=== PATIENT | female | born 1955 | race Caucasian/White ===

== ENCOUNTER 2017-02-13 09:00 | Emergency (ER) | payer MEDICARE, OTHER ==
[2017-02-13] MEDS ORDERED: IPRATROPIUM/ALBUTEROL 0.5-2.5 MG/3 ML AMPUL NEB ONE (09:14)
[2017-02-13] MEDS ORDERED: ALBUTEROL SULFATE 0.083% NEB 2.5 MG/3 ML AMPUL NEB SCH (09:30)
[2017-02-13 09:50] LABS: ABSOLUTE EOSINOPHILS # (AUTO) 0.1 10^3/uL (0.0-0.6); ABSOLUTE LYMPHOCYTES (AUTO) 1.1 10^3/uL (0.5-4.7); ABSOLUTE MONOCYTES (AUTO) 0.6 10^3/uL (0.1-1.4); ABSOLUTE NEUT (AUTO) 3.6 10^3/uL (1.7-8.2); BASOPHILS % (AUTO) 0.4 % (0-2); EOSINOPHILS % (AUTO) 2.6 % (0-6); HEMATOCRIT 36.9 % (36.0-47.0); HEMOGLOBIN 12.1 g/dL (12.0-15.5); HGB HCT DIFFERENCE -0.6; LYMPHOCYTES % (AUTO) 19.9 % (13-45); MEAN CORPUSCULAR HEMOGLOBIN 29.7 pg (27.0-33.4); MEAN CORPUSCULAR HGB CONC 32.7 g/dL (32.0-36.0); MEAN CORPUSCULAR VOLUME 91 fl (80-97); MONOCYTES % (AUTO) 11.3 % (3-13); RED BLOOD COUNT 4.06 10^6/uL (3.72-5.28); RED CELL DISTRIBUTION WIDTH 13.2 % (11.5-14.0); SEGMENTED NEUTROPHILS % (AUTO) 65.8 % (42-78); WHITE BLOOD COUNT 5.5 10^3/uL (4.0-10.5)
[2017-02-13 10:15] LABS: ALANINE AMINOTRANSFERASE 38 U/L (9-52); ALBUMIN 3.5 g/dL (3.5-5.0); ALKALINE PHOSPHATASE 94 U/L (38-126); ANION GAP 6 (5-19); ASPARTATE AMINO TRANSFERASE 27 U/L (14-36); BILIRUBIN,DIRECT 0.4 mg/dL (0.0-0.4); BILIRUBIN,TOTAL 0.5 mg/dL (0.2-1.3); BLOOD UREA NITROGEN 16 mg/dL (7-20); CARBON DIOXIDE 39 mmol/L (22-30); CHLORIDE 95 mmol/L (98-107); CREATININE RESULT 0.43 mg/dL (0.52-1.25); GLUCOSE 93 mg/dL (75-110); POTASSIUM 4.3 mmol/L (3.6-5.0); SODIUM 140.4 mmol/L (137-145); TOTAL PROTEIN 6.8 g/dL (6.3-8.2)
--- NOTE | 2017-02-13 10:20 | ER Document Report ---
ED General - General Chief Complaint: Cough Stated Complaint: CONGESTION AND SHORTNESS OF BREATH Mode of Arrival: Ambulatory Information source: Patient Notes: 61 yr old female hx copd , on adviar albuterol 3 L nc at home at all times presents with complaints of sore throat. denies any fevers, denies any productivity to cough, denies any difficulty breathing. TRAVEL OUTSIDE OF THE [place] IN LAST 30 DAYS: No - HPI Onset: Other - 3 days Onset/Duration: Persistent Quality of pain: Achy Severity: Mild Pain Level: 1 Associated symptoms: Sore throat Exacerbated by: Denies Relieved by: Denies Similar symptoms previously: No Recently seen / treated by doctor: No - Related Data Allergies/Adverse Reactions: clindamycin [Clindamycin] Allergy (Severe, Verified 02/13/17 09:05) "Throat Swells Shut" Past Medical History - Social History Smoking Status: Former Smoker Cigarette use (# per day): No Chew tobacco use (# tins/day): No Smoking Education Provided: No Frequency of alcohol use: None Drug Abuse: None Family History: Reviewed & Not Pertinent Patient has suicidal ideation: No Patient has homicidal ideation: No - Past Medical History Cardiac Medical History: Reports: Hx Hypercholesterolemia, Hx Hypertension Pulmonary Medical History: Reports: Hx Asthma, Hx COPD Denies: Hx Tuberculosis Renal/ Medical History: Denies: Hx Peritoneal Dialysis Past Surgical History: Reports: Hx Appendectomy, Hx Hysterectomy - Immunizations Hx Diphtheria, Pertussis, Tetanus Vaccination: Yes Hx Pneumococcal Vaccination: 12/22/08 Review of Systems - Review of Systems Notes: REVIEW OF SYSTEMS: CONSTITUTIONAL : Denies fever, chills, or sweats. Denies recent illness. EENT: dmits to sore throat CARDIOVASCULAR: Denies chest pain. Denies palpitations or racing or irregular heart beat. Denies ankle edema. RESPIRATORY: Denies cough, cold, or chest congestion. Denies shortness of breath, difficulty breathing, or wheezing., on 3L nc GASTROINTESTINAL: Denies abdominal pain or distention. Denies nausea, vomiting , or diarrhea. Denies blood in vomitus, stools, or per rectum. Denies black, tarry stools. Denies constipation. GENITOURINARY: Denies difficulty urinating, painful urination, burning, frequency, blood in urine, or discharge. FEMALE GENITOURINARY: Denies vaginal bleeding, heavy or abnormal periods, irregular periods. Denies vaginal discharge or odor. MUSCULOSKELETAL: Denies back or neck pain or stiffness. Denies joint pain or swelling. SKIN: Denies rash, lesions or sores. HEMATOLOGIC : Denies easy bruising or bleeding. LYMPHATIC: Denies swollen, enlarged glands. NEUROLOGICAL: Denies confusion or altered mental status. Denies passing out or loss of consciousness. Denies dizziness or lightheadedness. Denies headache. Denies weakness or paralysis or loss of use of either side. Denies problems with gait or speech. Denies sensory loss, numbness, or tingling. Denies seizures. PSYCHIATRIC: Denies anxiety or stress. Denies depression, suicidal ideation, or homicidal ideation. ALL OTHER SYSTEMS REVIEWED AND NEGATIVE. Dictation was performed using [employer] voice recognition software PHYSICAL EXAMINATION: GENERAL: Well-appearing, well-nourished and in no acute distress. HEAD: Atraumatic, normocephalic. EYES: Pupils equal round and reactive to light, extraocular movements intact, conjunctiva are normal. ENT: Nares patent, oropharynx clear without exudates. Moist mucous membranes. NECK: Normal range of motion, supple without lymphadenopathy LUNGS: Breath sounds clear to auscultation bilaterally and equal. No wheezes rales or rhonchi. HEART: Regular rate and rhythm without murmurs ABDOMEN: Soft, nontender, nondistended abdomen. No guarding, no rebound. No masses appreciated. Female : deferred Musculoskeletal: Normal range of motion, no pitting or edema. No cyanosis. NEUROLOGICAL: Cranial nerves grossly intact. Normal speech, normal gait. Normal sensory, motor exams PSYCH: Normal mood, normal affect. SKIN: Warm, Dry, normal turgor, no rashes or lesions noted. Physical Exam - Vital signs Vitals: Temp Pulse Resp BP Pulse Ox 98.6 F 67 20 125/80 91 L 02/13/17 09:05 02/13/17 09:05 02/13/17 09:05 02/13/17 09:05 02/13/17 09:05 Course - Re-evaluation Re-evalutation: 02/13/17 10:47 pt has probably thrush related to her use of advair. strep pending , no respiratroy distress 02/13/17 11:48 strep was negative, will treat for esophagitis candidiasis After performing a Medical Screening Examination, I estimate there is LOW risk for ACUTE CORONARY SYNDROME, RESPIRATORY FAILURE, SEPSIS OR MENINGITIS, thus I consider the discharge disposition reasonable. I have reevaluated this patient multiple times and no significant life threatening changes are noted. The patient and I have discussed the diagnosis and risks, and we agree with discharging home with close follow-up. We also discussed returning to the Emergency Department immediately if new or worsening symptoms occur. We have discussed the symptoms which are most concerning (e.g., changing or worsening pain, trouble swallowing or breathing, neck stiffness, fever) that necessitate immediate return. - Vital Signs Vital signs: Temp Pulse Resp BP Pulse Ox 98.0 F 74 20 116/83 98 02/13/17 11:32 02/13/17 11:32 02/13/17 11:32 02/13/17 11:32 02/13/17 11:32 - Laboratory Result Diagrams: 02/13/17 09:35 02/13/17 09:35 Laboratory results interpreted by me: 02/13/17 02/13/17 09:35 09:35 Plt Count 146 L Chloride 95 L Carbon Dioxide 39 H Creatinine 0.43 L - Diagnostic Test Radiology reviewed: Image reviewed, Reports reviewed Discharge - Discharge Clinical Impression: Candidiasis of the esophagus, Sore throat Condition: Stable Disposition: HOME, SELF-CARE Instructions: Esophagitis ([facility]) Additional Instructions: Follow up with your physician tomorrow for further care or return to the ED IMMEDIATELY if symptoms worsen or new concerns occur. If you cannot afford to follow up with your primary care physician a list of low cost clinics have been provided at the end of your discharge papers as well. Prescriptions: Fluconazole [Diflucan] 100 mg PO DAILY #7 tablet
[2017-02-13 11:34] VITALS: BP 116/83
[2017-02-13] MEDS ORDERED: FLUCONAZOLE 100 MG TABLET PO ONE (11:50)
== END 2017-02-13 11:59 | disposition home or self-care (01) ==
LOC: ER 09:00
DX: B37.81 Candidal esophagitis (principal); J02.9 Acute pharyngitis, unspecified; J44.9 Chronic obstructive pulmonary disease, unspecified; Z79.51 Long term (current) use of inhaled steroids; Z79.899 Other long term (current) drug therapy; Z88.1 Allergy status to other antibiotic agents; Z87.891 Personal history of nicotine dependence; I10 Essential (primary) hypertension
CPT/HCPCS: 94640; 99284; 36415; 87070; 87880; 85025; 80053; 71020; A9270 ×3; J7620

== ENCOUNTER → 2017-09-08 | Outpatient (CLI) | payer MEDICARE, OTHER ==
--- NOTE | 2017-09-08 14:23 | RADIOLOGY REPORT (SQ) ---
EXAM DESCRIPTION: CT CHEST WITHOUT COMPLETED DATE/TIME: 09/08/2017 1:02 pm REASON FOR STUDY: EMPHYSEMA, UNSPECIFIED/SOLITARY PULMONARY NODULE J43.9 EMPHYSEMA, UNSPECIFIED COMPARISON: CT chest 09/07/2016, 04/07/2014, 03/11/2013, 12/15/2008 TECHNIQUE: CT scan performed of the chest without intravenous contrast. Images reviewed with lung, soft tissue and bone windows. Reconstructed coronal and sagittal MPR images reviewed. All images st ored on PACS. All CT scanners at this facility use dose modulation, iterative reconstruction, and/or weight based d osing when appropriate to reduce radiation dose to as low as reasonably achievable (ALARA). [facility]: Dose Right [facility]: CareDose [facility]: Dose Right [facility]: Teradose 4D [facility]: [employer] RADIATION DOSE: CT Rad equipment meets quality standard of care and radiation dose reduction techniq ues were employed. CTDIvol: 2.8 mGy. DLP: 118 mGy-cm. mGy. LIMITATIONS: No technical limitations. FINDINGS: LUNGS AND PLEURA: Obstructive lung disease is present. Calcified granulomas left upper lobe, unchanged compared to studies dating back to 2008. No acute infiltrates. No pleural effusion. No pneumothorax. HILAR AND MEDIASTINAL STRUCTURES: No identified masses or abnormal nodes. No obvious aneurysm. HEART AND VASCULAR STRUCTURES: No aneurysm. No pericardial effusion. UPPER ABDOMEN: No significant findings. Limited exam. THYROID AND OTHER SOFT TISSUES: 6 mm calcification, left lower pole thyroid unchanged. BONES: No significant finding. HARDWARE: None in the chest. OTHER: No other significant findings. IMPRESSION: Obstructive lung disease. Calcified granulomas left upper lobe unchanged from studies dating back to 2008. TECHNICAL DOCUMENTATION: JOB ID: [id number] Quality ID # [id number]: Final reports with documentation of one or more dose reduction techniques (e.g., Au tomated exposure control, adjustment of the mA and/or kV according to patient size, use of iterative reconstruction technique) 2010 [employer]- All Rights Reserved
== END ==
LOC: RAD 12:38
PROVIDERS: ATTEND Internal Medicine Pulmonary Disease
DX: J43.9 Emphysema, unspecified (principal); R91.1 Solitary pulmonary nodule
CPT/HCPCS: 71250

== ENCOUNTER 2018-03-17 03:20 | Emergency (ER) | payer MEDICARE, OTHER ==
--- NOTE | 2018-03-17 03:49 | ER Document Report ---
ED General - General Chief Complaint: Urinary Problem Stated Complaint: BLOOD IN URINE Time Seen by Provider: 03/17/18 03:44 Mode of Arrival: Ambulatory Information source: Patient, Relative, [facility] Records Notes: 62-year-old female with history of COPD on home O2 presents with complaint of hematuria, dysuria and increased urinary frequency that started 1 day prior to arrival. Patient denies abdominal pain, flank pain, history of kidney stones. She states she has been otherwise well and denies any recent, fever, chills, nausea, vomiting. She denies prior similar symptoms. TRAVEL OUTSIDE OF THE [place] IN LAST 30 DAYS: No - HPI Onset: Yesterday Onset/Duration: Sudden Quality of pain: No pain Associated symptoms: Shortness of breath - chronic. denies: Chest pain, Nausea , Vomiting Exacerbated by: Denies Relieved by: Denies Similar symptoms previously: No Recently seen / treated by doctor: No - Related Data Allergies/Adverse Reactions: clindamycin [Clindamycin] Allergy (Severe, Verified 02/13/17 09:05) "Throat Swells Shut" Past Medical History - General Information source: Patient, Relative, [facility] Records - Social History Smoking Status: Former Smoker Frequency of alcohol use: None Drug Abuse: None Lives with: Spouse/Significant other Family History: Reviewed & Not Pertinent Patient has suicidal ideation: No Patient has homicidal ideation: No - Past Medical History Cardiac Medical History: Reports: Hx Hypercholesterolemia, Hx Hypertension Pulmonary Medical History: Reports: Hx Asthma, Hx COPD Denies: Hx Tuberculosis Renal/ Medical History: Denies: Hx Peritoneal Dialysis Past Surgical History: Reports: Hx Appendectomy, Hx Hysterectomy - Immunizations Hx Diphtheria, Pertussis, Tetanus Vaccination: Yes Hx Pneumococcal Vaccination: 12/22/08 Review of Systems - Review of Systems Constitutional: denies: Fever, Weakness, Recent illness EENT: denies: Blurred vision Cardiovascular: denies: Chest pain, Dyspnea Respiratory: Cough, Short of breath - chronic Gastrointestinal: denies: Abdominal pain, Nausea, Vomiting Genitourinary: Dysuria, Frequency, Hematuria Female Genitourinary: No symptoms reported Musculoskeletal: No symptoms reported Skin: No symptoms reported Hematologic/Lymphatic: No symptoms reported Neurological/Psychological: No symptoms reported -: Yes All other systems reviewed and negative Physical Exam - Vital signs Vitals: Temp Pulse Resp BP Pulse Ox 98.2 F 95 20 148/85 H 93 03/17/18 03:27 03/17/18 03:27 03/17/18 03:27 03/17/18 03:27 03/17/18 03:27 Interpretation: Normal, Hypertensive. No: Febrile - Notes Notes: PHYSICAL EXAMINATION: GENERAL: Well-appearing, well-nourished and in no acute distress. HEAD: Atraumatic, normocephalic. EYES: Pupils equal round and reactive to light, extraocular movements intact, conjunctiva are normal. ENT: Nares patent, oropharynx clear without exudates. Moist mucous membranes. NECK: Normal range of motion, supple without lymphadenopathy LUNGS: On NC 3 L. Breath sounds diminished to auscultation bilaterally and equal. No wheezes rales or rhonchi. HEART: Regular rate and rhythm without murmurs ABDOMEN: Soft, nontender, nondistended abdomen. No guarding, no rebound. No masses appreciated. Female : deferred Musculoskeletal: Normal range of motion, no pitting or edema. No cyanosis. No CVA tenderness NEUROLOGICAL: Cranial nerves grossly intact. Normal speech, normal gait. Normal sensory, motor exams PSYCH: Normal mood, normal affect. SKIN: Warm, Dry, normal turgor, no rashes or lesions noted. Course - Re-evaluation Re-evalutation: Laboratory 03/17/18 04:08 Urine Color RED Urine Appearance CLOUDY Urine pH 7.0 Ur Specific [place] 1.015 Urine Protein 100 H Urine Glucose (UA) NEGATIVE Urine Ketones NEGATIVE Urine Blood LARGE H Urine Nitrite NEGATIVE Urine Bilirubin NEGATIVE Urine Urobilinogen NEGATIVE Ur Leukocyte Esterase MODERATE H Urine WBC (Auto) >182 Urine RBC (Auto) >182 Urine Ascorbic Acid NEGATIVE 03/17/18 08:15 62-year-old female with history of COPD on home O2 presents with complaint of hematuria, dysuria and increased urinary frequency that started 1 day prior to arrival. Patient denies abdominal pain, flank pain, history of kidney stones. She states she has been otherwise well and denies any recent, fever, chills, nausea, vomiting. She denies prior similar symptoms. VSS upon arrival. Patient is without increased O2 needs. Patient has non-surgical abdominal exam. she is without cva tenderness. Urine at the bedside is grossly bloody. UA consistent of significant UTI. Patient made away of results. Was provided her first dose of Cipro and pyridium in the department and was prescribed the same. Did discuss with patient that hematuria can be seen with UTIs but that she needs to follow up with pcp to asess for resolution. Advised her that peristent hematuria would need evaluation from urology. Patient and express understanding. They are comfortable with discharge. Advised to return if patient unable to tolerate abx, develops fever or has worsening pain. Low concern for pyelonephritis, or infected stone. 03/17/18 08:15 - Vital Signs Vital signs: Temp Pulse Resp BP Pulse Ox 97.6 F 93 18 138/89 H 93 03/17/18 05:14 03/17/18 05:14 03/17/18 05:14 03/17/18 05:14 03/17/18 05:14 - Laboratory Laboratory results interpreted by me: 03/17/18 04:08 Urine Protein 100 H Urine Blood LARGE H Ur Leukocyte Esterase MODERATE H Discharge - Discharge Clinical Impression: Hematuria due to acute cystitis UTI (urinary tract infection) Qualifiers: Urinary tract infection type: site unspecified Hematuria presence: with hematuria Qualified Code(s): N39.0 - Urinary tract infection, site not specified Condition: Good Disposition: [facility] Instructions: Urinary Tract Infection ([facility]) Additional Instructions: Please follow-up with your primary care physician in 5-7 days to repeat urinalysis. Please return to the emergency department if you are unable to tolerate your antibiotics. Prescriptions: Ciprofloxacin HCl [Cipro 500 mg Tablet] 500 mg PO BID #10 tablet Phenazopyridine HCl [Pyridium 200 mg Tablet] 200 mg PO TID #15 tablet Referrals: NORIS ARREDONDO MD [Primary Care Provider] - Follow up as needed
[2018-03-17 04:32] LABS: APPEARANCE,URINE CLOUDY; BILIRUBIN,URINE NEGATIVE (NEGATIVE); COLOR,URINE RED; GLUCOSE, URINE NEGATIVE (NEGATIVE); KETONES,URINE NEGATIVE (NEGATIVE); LEUKOCYTE ESTERASE,URINE MODERATE (NEGATIVE); NITRITE,URINE NEGATIVE (NEGATIVE); PROTEIN,URINE 100 mg/dL (NEGATIVE); URINE SPECIFIC GRAVITY 1.015; UROBILINOGEN,URINE NEGATIVE mg/dL (<2.0)
[2018-03-17] MEDS ORDERED: CIPROFLOXACIN HCL 500 MG TABLET PO ONE (04:54)
[2018-03-17] MEDS ORDERED: PHENAZOPYRIDINE HCL 200 MG TABLET PO ONE (04:58)
[2018-03-17 05:39] VITALS: BP 138/89
== END 2018-03-17 05:14 | disposition home health service (06) ==
LOC: ER 03:20
DX: N30.01 Acute cystitis with hematuria (principal); J44.9 Chronic obstructive pulmonary disease, unspecified; E78.00 Pure hypercholesterolemia, unspecified; I10 Essential (primary) hypertension; Z99.81 Dependence on supplemental oxygen; Z90.710 Acquired absence of both cervix and uterus
CPT/HCPCS: 99283; 81001; A9270 ×2; J3490

== ENCOUNTER 2018-04-02 12:21 | Emergency (ER) | payer MEDICARE, OTHER ==
[2018-04-02] MEDS ORDERED: METOCLOPRAMIDE HCL INJ/PF 10 MG/2 ML SDV IV ONE (13:02)
[2018-04-02] MEDS ORDERED: NORMAL SALINE 1000 ML 1,000 ML IV ONE (13:02)
--- NOTE | 2018-04-02 13:03 | ER Document Report ---
ED Medical Screen (RME) - General Chief Complaint: Nausea/Vomiting Stated Complaint: VOMITING Time Seen by Provider: 04/02/18 13:02 Mode of Arrival: Ambulatory Information source: Patient Notes: 62-year-old female history of COPD on oxygen presents with complaints of nausea vomiting since Tuesday I have greeted and performed a rapid initial assessment of this patient. A comprehensive ED assessment and evaluation of the patient, analysis of test results and completion of the medical decision making process will be conducted by additional ED providers. PHYSICAL EXAMINATION: GENERAL: Well-appearing, well-nourished and in no acute distress. Pt on O2 HEAD: Atraumatic, normocephalic. EYES: Pupils equal round extraocular movements intact, conjunctiva are normal. ENT: Nares patent NECK: Normal range of motion LUNGS: No respiratory distress Musculoskeletal: Normal range of motion NEUROLOGICAL: Normal speech, normal gait. PSYCH: Normal mood, normal affect. SKIN: Warm, Dry, normal turgor, no rashes or lesions noted. TRAVEL OUTSIDE OF THE [place] IN LAST 30 DAYS: No - Related Data Allergies/Adverse Reactions: clindamycin [Clindamycin] Allergy (Severe, Verified 02/13/17 09:05) "Throat Swells Shut" Past Medical History - Past Medical History Cardiac Medical History: Reports: Hx Hypercholesterolemia, Hx Hypertension Pulmonary Medical History: Reports: Hx Asthma, Hx COPD Denies: Hx Tuberculosis Renal/ Medical History: Denies: Hx Peritoneal Dialysis Past Surgical History: Reports: Hx Appendectomy, Hx Hysterectomy - Immunizations Hx Diphtheria, Pertussis, Tetanus Vaccination: Yes Physical Exam - Vital signs Vitals: Temp Pulse Resp BP Pulse Ox 98.5 F 90 22 H 146/88 H 92 04/02/18 12:04/02/18 12:04/02/18 12:04/02/18 12:04/02/18 12:27 Course - Vital Signs Vital signs: Temp Pulse Resp BP Pulse Ox 98.5 F 90 22 H 146/88 H 92 04/02/18 12:04/02/18 12:04/02/18 12:04/02/18 12:04/02/18 12:27 Doctor's Discharge - Discharge Referrals: NORIS ARREDONDO MD [Primary Care Provider] - Follow up as needed
[2018-04-02 13:54] LABS: ALANINE AMINOTRANSFERASE 35 U/L (9-52); ALBUMIN 4.6 g/dL (3.5-5.0); ALKALINE PHOSPHATASE 72 U/L (38-126); ASPARTATE AMINO TRANSFERASE 39 U/L (14-36); BILIRUBIN,DIRECT 0.3 mg/dL (0.0-0.4); BILIRUBIN,TOTAL 0.7 mg/dL (0.2-1.3); BLOOD UREA NITROGEN 20 mg/dL (7-20); CALCIUM 9.5 mg/dL (8.4-10.2); CHLORIDE 89 mmol/L (98-107); GLUCOSE 107 mg/dL (75-110); LIPASE 23.1 U/L (23-300); POTASSIUM 3.9 mmol/L (3.6-5.0); SODIUM 139.1 mmol/L (137-145); TOTAL PROTEIN 8.1 g/dL (6.3-8.2)
[2018-04-02 14:01] LABS: ANION GAP 7 (5-19)
[2018-04-02 14:04] LABS: CARBON DIOXIDE 43 mmol/L (22-30)
[2018-04-02 14:05] LABS: ABSOLUTE LYMPHOCYTES (AUTO) 0.3 10^3/uL (0.5-4.7); ABSOLUTE MONOCYTES (AUTO) 0.4 10^3/uL (0.1-1.4); ABSOLUTE NEUT (AUTO) 3.8 10^3/uL (1.7-8.2); BASOPHILS % (AUTO) 0.2 % (0-2); EOSINOPHILS % (AUTO) 0.2 % (0-6); HEMATOCRIT 41.7 % (36.0-47.0); MEAN CORPUSCULAR HEMOGLOBIN 30.2 pg (27.0-33.4); MEAN CORPUSCULAR HGB CONC 33.6 g/dL (32.0-36.0); MEAN CORPUSCULAR VOLUME 90 fl (80-97); MONOCYTES % (AUTO) 9.3 % (3-13); PLATELET COUNT 116 10^3/uL (150-450); RED BLOOD COUNT 4.64 10^6/uL (3.72-5.28); RED CELL DISTRIBUTION WIDTH 13.9 % (11.5-14.0); SEGMENTED NEUTROPHILS % (AUTO) 83.3 % (42-78); TOTAL CELLS COUNTED % (AUTO) 100 %; WHITE BLOOD COUNT 4.6 10^3/uL (4.0-10.5)
[2018-04-02] MEDS ORDERED: IPRATROPIUM/ALBUTEROL 0.5-2.5 MG/3 ML AMPUL NEB ONE (14:44)
--- NOTE | 2018-04-02 14:48 | ER Document Report ---
ED GI/ - General Chief Complaint: Nausea/Vomiting Stated Complaint: VOMITING Time Seen by Provider: 04/02/18 13:02 Mode of Arrival: Ambulatory Information source: Patient Notes: Patient presents with a 2 day history of nausea vomiting diarrhea. Patient complains of cramping with diarrhea that is at this time resolved. Patient states she is vomited over 5 times today and had diarrhea over 3 times. Patient denies any fever or urinary symptoms. TRAVEL OUTSIDE OF THE [place] IN LAST 30 DAYS: No - HPI Patient complains to provider of: Abdominal pain, Diarrhea, Vomiting Onset: Other - 2 days Timing/Duration: Persistent Quality of pain: Achy Pain Level: Denies Vaginal bleeding (Compared to normal period): None Associated symptoms: Diarrhea, Nausea, Vomiting, Other - Chronic cough due to COPD. denies: Chest pain, Dysuria, Fever, Urinary hesitancy, Urinary frequency , Urinary retention, Urinary urgency Exacerbated by: Denies Relieved by: Denies Similar symptoms previously: No Recently seen / treated by doctor: No - Related Data Allergies/Adverse Reactions: clindamycin [Clindamycin] Allergy (Severe, Verified 02/13/17 09:05) "Throat Swells Shut" Past Medical History - General Information source: Patient - Social History Smoking Status: Former Smoker Chew tobacco use (# tins/day): No Frequency of alcohol use: None Drug Abuse: None Occupation: None Lives with: Family Family History: Reviewed & Not Pertinent Patient has suicidal ideation: No Patient has homicidal ideation: No - Past Medical History Cardiac Medical History: Reports: Hx Hypercholesterolemia, Hx Hypertension Pulmonary Medical History: Reports: Hx Asthma, Hx COPD Denies: Hx Tuberculosis Renal/ Medical History: Denies: Hx Peritoneal Dialysis GI Medical History: Reports: Hx Gastroesophageal Reflux Disease Past Surgical History: Reports: Hx Appendectomy, Hx Hysterectomy - Immunizations Hx Diphtheria, Pertussis, Tetanus Vaccination: Yes Hx Pneumococcal Vaccination: 12/22/08 Review of Systems - Review of Systems Constitutional: No symptoms reported. denies: Fever EENT: No symptoms reported Cardiovascular: No symptoms reported. denies: Chest pain Respiratory: Cough Gastrointestinal: Abdominal pain, Diarrhea, Nausea, Vomiting. denies: Constipation, Poor appetite Genitourinary: No symptoms reported. denies: Dysuria Female Genitourinary: No symptoms reported Musculoskeletal: No symptoms reported. denies: Back pain Skin: No symptoms reported Hematologic/Lymphatic: No symptoms reported Neurological/Psychological: No symptoms reported Physical Exam - Vital signs Vitals: Temp Pulse Resp BP Pulse Ox 98.5 F 90 22 H 146/88 H 92 04/02/18 12:27 04/02/18 12:27 04/02/18 12:27 04/02/18 12:27 04/02/18 12:27 - General General appearance: Appears well, Alert In distress: None - HEENT Head: Normocephalic, Atraumatic Eyes: Normal Conjunctiva: Normal Nasal: Normal Mouth/Lips: Normal Mucous membranes: Dry Pharynx: Normal Neck: Normal - Respiratory Respiratory status: No respiratory distress Chest status: Nontender Breath sounds: Wheezing - Faint scattered, Other - Diminished breath sounds Chest palpation: Normal - Cardiovascular Rhythm: Regular Heart sounds: S1 appreciated, S2 appreciated Murmur: No - Abdominal Inspection: Normal Distension: No distension Bowel sounds: Normal Tenderness: Nontender Organomegaly: No organomegaly - Back Back: Normal, Nontender. No: CVA tenderness - Extremities General upper extremity: Normal inspection, Normal strength General lower extremity: Normal inspection, Normal strength - Neurological Neuro grossly intact: Yes Cognition: Normal Keller Coma Scale Eye Opening: Spontaneous Keller Coma Scale Verbal: Oriented Keller Coma Scale Motor: Obeys Commands Alisa Coma Scale Total: 15 - Psychological Associated symptoms: Normal affect, Normal mood - Skin Skin Temperature: Warm Skin Moisture: Dry Skin Color: Normal Course - Re-evaluation Re-evalutation: 04/02/18 14:46 Patient has a history of COPD and typically uses her nebulizer treatments at home at least 3 times a day. Patient is requesting a nebulizer treatment at this time. Patient states that her respiratory symptoms are typical of her chronic COPD. Patient denies any recent cough or cold symptoms. Reviewed patient's chemistry panel. Patient CO2 is typical of where she has run on previous ER visits. Review of patient's previous charts demonstrates that her doctor had spoke with her about the possibility of needing a lung transplant but she decided not to pursue this method of care. Patient without any increased respiratory effort, no use of accessory muscles 04/02/18 16:18 Patient reports that her nausea has started to return and requests additional medicine. 04/02/18 18:30 Patient feeling better, no vomiting at this time. Abdomen continues soft, nontender. Patient worsening signs or symptoms that she should return immediately for. Patient verbalized understanding and agrees with plan of care. - Vital Signs Vital signs: Temp Pulse Resp BP Pulse Ox 99.7 F 86 16 134/82 H 99 04/02/18 18:46 04/02/18 18:46 04/02/18 18:46 04/02/18 18:46 04/02/18 18:46 - Laboratory Result Diagrams: 04/02/18 13:30 04/02/18 13:30 Laboratory results interpreted by me: 04/02/18 04/02/18 04/02/18 13:30 13:30 14:40 Plt Count 116 L Seg Neutrophils % 83.3 H Lymphocytes % 7.0 L Absolute Lymphocytes 0.3 L Chloride 89 L Carbon Dioxide 43 H* Creatinine 0.48 L AST 39 H Urine Ketones TRACE H Ur Leukocyte Esterase TRACE H 04/02/18 14:47 Labs- Entire Visit 04/02/18 04/02/18 13:30 13:30 WBC 4.6 RBC 4.64 Hgb 14.0 Hct 41.7 MCV 90 MCH 30.2 MCHC 33.6 RDW 13.9 Plt Count 116 L Seg Neutrophils % 83.3 H Lymphocytes % 7.0 L Monocytes % 9.3 Eosinophils % 0.2 Basophils % 0.2 Absolute Neutrophils 3.8 Absolute Lymphocytes 0.3 L Absolute Monocytes 0.4 Absolute Eosinophils 0.0 Absolute Basophils 0.0 Sodium 139.1 Potassium 3.9 Chloride 89 L Carbon Dioxide 43 H* Anion Gap 7 BUN 20 Creatinine 0.48 L Est GFR ( Amer) > 60 Est GFR (Non-Af Amer) > 60 Glucose 107 Calcium 9.5 Total Bilirubin 0.7 Direct Bilirubin 0.3 Neonat Total Bilirubin Not Reportable Neonat Direct Bilirubin Not Reportable Neonat Indirect Bili Not Reportable AST 39 H ALT 35 Alkaline Phosphatase 72 Total Protein 8.1 Albumin 4.6 Lipase 23.1 - Diagnostic Test Radiology reviewed: Reports reviewed Discharge - Discharge Clinical Impression: Nausea vomiting and diarrhea Chronic obstructive airway disease Qualifiers: COPD type: unspecified COPD Qualified Code(s): J44.9 - Chronic obstructive pulmonary disease, unspecified Condition: Stable Disposition: HOME, SELF-CARE Instructions: Chronic Obstructive Lung Disease ([facility]), Diarrhea, Nonspecific ( [facility]), Intravenous (IV) Fluids ([facility]), Vomiting ([facility]) Additional Instructions: Return immediately for any new or worsening symptoms Followup with your primary care provider, call tomorrow to make a followup appointment Prescriptions: Ondansetron HCl [Zofran 4 mg Tablet] 1 - 2 tab PO Q6 PRN #15 tablet PRN Reason: Referrals: NORIS ARREDONDO MD [ACTIVE STAFF] - Follow up as needed CAL CABALLERO MD [Primary Care Provider] - Follow up as needed
[2018-04-02 15:02] LABS: APPEARANCE,URINE SLIGHTLY-CLOUDY; BILIRUBIN,URINE NEGATIVE (NEGATIVE); COLOR,URINE YELLOW; GLUCOSE, URINE NEGATIVE (NEGATIVE); KETONES,URINE TRACE mg/dL (NEGATIVE); LEUKOCYTE ESTERASE,URINE TRACE (NEGATIVE); NITRITE,URINE NEGATIVE (NEGATIVE); PROTEIN,URINE NEGATIVE (NEGATIVE); URINE SPECIFIC GRAVITY 1.019; UROBILINOGEN,URINE NEGATIVE mg/dL (<2.0)
[2018-04-02] MEDS ORDERED: DIPHENHYDRAMINE HCL 50 MG/ML VIAL IV ONE (16:17)
--- NOTE | 2018-04-02 16:19 | RADIOLOGY REPORT (SQ) ---
EXAM DESCRIPTION: CHEST 2 VIEWS COMPLETED DATE/TIME: 04/02/2018 3:55 pm REASON FOR STUDY: sob, hx copd COMPARISON: 2016 NUMBER OF VIEWS: Two view. TECHNIQUE: Frontal and lateral radiographic views of the chest acquired. LIMITATIONS: None. FINDINGS: LUNGS AND PLEURA: No opacities, masses or pneumothorax. No pleural effusion. Attenuated bl ood vessels and flattened soledad-diaphragms. MEDIASTINUM AND HILAR STRUCTURES: No masses. No contour abnormalities. HEART AND VASCULAR STRUCTURES: Heart normal in size and contour. No evidence for failure. BONES: Mild scoliosis. HARDWARE: None in the chest. OTHER: No other significant finding. IMPRESSION: COPD. NO ACUTE RADIOGRAPHIC FINDING IN THE CHEST. TECHNICAL DOCUMENTATION: JOB ID: [id number] [employer]- All Rights Reserved Reading location - IP/workstation name: [email or web address]
[2018-04-02 18:51] VITALS: BP 134/82
== END 2018-04-02 18:51 | disposition home or self-care (01) ==
LOC: ER 12:21
DX: J44.9 Chronic obstructive pulmonary disease, unspecified (principal); R11.2 Nausea with vomiting, unspecified; R19.7 Diarrhea, unspecified; R10.9 Unspecified abdominal pain; R05 Cough; I10 Essential (primary) hypertension
CPT/HCPCS: 99284; 36415; 83690; 85025; 80053; 81001; 71046; J1200; J2765; J7030; A9270; J7620

== ENCOUNTER → 2018-09-05 | Outpatient (CLI) | payer MEDICARE, OTHER ==
--- NOTE | 2018-09-05 21:52 | XCELERA REPORT ---
[address] [address] Transthoracic Echocardiogram Report Name: NOE CLAROS Age: 62 yrs Gender: Female : 1955 Patient Status: Outpatient Patient Location: [facility] Study Date: 09/05/2018 01:25 PM Height: 65 in Weight: 114 lb BSA: 1.6 m2 Reason For Study: DYSPNEA Ordering Physician: NORIS ARREDONDO Performed By: Britni Hi Interpretation Summary Technically difficult study due to pt's body habitus, narrow rib space acoustic window, unable to obtain optimal apical 2 chamber view to assess anterior and inferior wall motion. No significant posterior pericardial effusion. Normal 3 cusps AV with no and AR. Mild mitral annular calcification. No MS, no MVP, mild MR with no LA enlargement. No LVH, normal LVEF 65% with no LV diastolic dysfunction, and except for anterior wall and inferior wall motion not fully assessed, I see no segmental wall motion abnormality,. RA is enlarged, RV is normal size and normal functioning. RVSP is 60, hence moderate pulm hypertension, RAP presumed 8 mm Hg. No ASD. The AW and IW needs to be assessed by another imaging modality such as CMR, or SPECT stress imaging, if clinical questions needs to be answered, such as some of pts shortness of breath could be an anginal variant in addition to his COPD/pulm hypertension ? MMode/2D Measurements & Calculations RVDd: 1.9 cm LVIDd: 3.8 cm FS: 34.8 % Ao root diam: 2.7 cm IVSd: 0.96 cm LVIDs: 2.5 cm EDV(Teich): 63.7 ml LVPWd: 1.0 cm ESV(Teich): 22.5 ml Ao root area: 5.5 cm2 LA dimension: 3.0 cm EF(Teich): 64.7 % Doppler Measurements & Calculations MV E max nela: MV P1/2t max nela: Ao V2 max: LV V1 max P.0 cm/sec 67.9 cm/sec 142.5 cm/sec 3.5 mmHg MV A max nela: MV P1/2t: 74.5 msec Ao max P.1 mmHg LV V1 max: 70.6 cm/sec MVA(P1/2t): 3.0 cm2 93.1 cm/sec MV E/A: 0.98 MV dec slope: 266.9 cm/sec2 MV dec time: 0.24 sec PA V2 max: TR max nela: MV P1/2t-pr_phl: 110.1 cm/sec 363.8 cm/sec 74.5 msec PA max P.8 mmHgTR max P.9 mmHg I WMSI = 1.00 % Normal = 100 Segments Size X - Cannot 2 - 4 - 1-2 small Interpret 1 - Normal Hypokinetic 3 - AkineticDyskinetic 3-5 moderate 5 - 6-14 large Aneurysmal 15-16 diffuse : NORIS ARREDONDO > Ayaan Levy
== END ==
LOC: SP 13:22
PROVIDERS: ATTEND Internal Medicine Pulmonary Disease
DX: R06.00 Dyspnea, unspecified (principal)
CPT/HCPCS: 93306

== ENCOUNTER 2018-09-19 14:13 | Inpatient (IN) | payer MEDICARE, OTHER ==
--- NOTE | 2018-09-19 14:18 | ER Document Report ---
ED Respiratory Problem - General Stated Complaint: DIFFICULTY BREATHING Time Seen by Provider: 09/19/18 14:16 Notes: 62-year-old female to the emergency department for evaluation of shortness of breath. Patient has treated COPD. Followed by Dr. Valentine with pulmonology. Multiple admissions for COPD exacerbation. On home oxygen. Reportedly oxygen concentrator was not working so has been put on an older machine because he thought the newer machine was not working because her oxygen levels were low. He was gone for approximately 1 hour. When he got home patient was unresponsive. Was blue. EMS was called. EMS arrived shortly thereafter and oxygen saturations were 42%. Patient was placed on oxygen given breathing treatment and Solu-Medrol. By the time she arrived to the emergency department she was still a little sleepy but much more responsive and answering questions appropriately. Denied any chest pain or other issues. Initial ABG showed a PCO2 in the 70s with a PO2 in the 80s. TRAVEL OUTSIDE OF THE [place] IN LAST 30 DAYS: No - HPI Patient complains to provider of: COPD, Short of breath Onset: Just prior to arrival Duration: Better Severity: Severe Pain Level: 0 Context: Hx COPD Short of Breath: Severe Cough: Nonproductive - Related Data Allergies/Adverse Reactions: clindamycin [Clindamycin] Allergy (Severe, Verified 02/13/17 09:05) "Throat Swells Shut" Past Medical History - General Information source: Patient - Social History Smoking Status: Former Smoker Cigarette use (# per day): No Frequency of alcohol use: None Drug Abuse: None Lives with: Spouse/Significant other Family History: Reviewed & Not Pertinent - Past Medical History Cardiac Medical History: Reports: Hx Hypercholesterolemia, Hx Hypertension Pulmonary Medical History: Reports: Hx Asthma, Hx COPD Denies: Hx Tuberculosis Renal/ Medical History: Denies: Hx Peritoneal Dialysis GI Medical History: Reports: Hx Gastroesophageal Reflux Disease Past Surgical History: Reports: Hx Appendectomy, Hx Hysterectomy - Immunizations Hx Diphtheria, Pertussis, Tetanus Vaccination: Yes Hx Pneumococcal Vaccination: 12/22/08 Review of Systems - Review of Systems Notes: Constitutional: denies: Chills, Diaphoresis, Fever, Malaise, Weakness EENT: denies: Eye discharge, Blurred vision, Tearing, Double vision, Nose congestion, Nose discharge, Throat swelling, Mouth pain Cardiovascular: denies: Palpitations, Heart racing, Orthopnea, Dyspnea, Chest pain Respiratory: Complains of shortness of breath, cough, wheeze Gastrointestinal: denies: Abdominal pain, Diarrhea, Nausea, Vomiting, Black stools, bright red blood in stool Genitourinary: denies: Burning, Dysuria, Discharge, Frequency, Flank pain, Hematuria Musculoskeletal: denies: Joint pain, Joint swelling, Muscle pain, Muscle stiffness, back pain Hematologic/Lymphatic: denies: Anemia, Easy bleeding, Easy bruising, Blood clots Neurological/Psychological: denies: Confusion, Dementia, Depression, Loss of consciousness Skin: No lesions, no masses, no skin breakdown, no abscesses Physical Exam - Vital signs Vitals: Temp Resp Pulse Ox 99 F 22 H 89 L 09/19/18 14:28 09/19/18 14:28 09/19/18 14:28 Interpretation: Tachycardic, Hypoxic, Tachypneic - General General appearance: Appears well, Alert - HEENT Head: Normocephalic, Atraumatic Eyes: Normal Pupils: PERRL - Respiratory Respiratory status: Respiratory distress, Tachypnea, Tripod position Chest status: Nontender Breath sounds: Decreased air movement, Nonproductive cough Chest palpation: Normal - Cardiovascular Rhythm: Tachycardia Heart sounds: Normal auscultation Murmur: No - Abdominal Inspection: Normal Distension: No distension Bowel sounds: Normal Tenderness: Nontender Organomegaly: No organomegaly - Back Back: Normal, Nontender - Extremities General upper extremity: Normal inspection, Nontender, Normal color, Normal ROM , Normal temperature General lower extremity: Normal inspection, Nontender, Normal color, Normal ROM , Normal temperature. No: Jordan's sign - Neurological Neuro grossly intact: Yes Cognition: Normal Orientation: AAOx4 [place] Coma Scale Eye Opening: Spontaneous Dobbins Coma Scale Verbal: Oriented Dobbins Coma Scale Motor: Obeys Commands Dobbins Coma Scale Total: 15 Speech: Normal Motor strength normal: LUE, RUE, LLE, RLE Sensory: Normal - Psychological Associated symptoms: Normal affect, Normal mood - Skin Skin Temperature: Warm Skin Moisture: Dry Skin Color: Normal Course - Re-evaluation Re-evalutation: 09/19/18 15:35 This is a 8-year-old female with severe COPD. Steroids were given. Patient was satting at approximately 86% on room air and was tachycardic. ABG showed PCO2 in the 70s. Placed on BiPAP. Tolerating BiPAP extremely well. At this time will consult with hospitalist for admission. 09/19/18 15:35 Laboratory 09/19/18 09/19/18 09/19/18 14:23 14:23 14:23 WBC 10.4 RBC 4.19 Hgb 12.7 Hct 37.8 MCV 90 MCH 30.3 MCHC 33.5 RDW 13.8 Plt Count 122 L Total Counted 100 Seg Neutrophils % Not Reportable Seg Neuts % (Manual) 88 H Band Neutrophils % 2 L Lymphocytes % Not Reportable Lymphocytes % (Manual) 5 L Monocytes % Not Reportable Monocytes % (Manual) 5 Eosinophils % Not Reportable Eosinophils % (Manual) 0 Basophils % Not Reportable Basophils % (Manual) 0 Absolute Neutrophils Not Reportable Abs Neuts (Manual) 9.4 H Absolute Lymphocytes Not Reportable Abs Lymphs (Manual) 0.5 Absolute Monocytes Not Reportable Abs Monocytes (Manual) 0.5 Absolute Eosinophils Not Reportable Absolute Eos (Manual) 0.0 Absolute Basophils Not Reportable Abs Basophils (Manual) 0.0 Platelet Comment DECREASED Polychromasia SLIGHT Hypochromasia 1+ Stomatocytes 1+ Carbonic Acid HCO3/H2CO3 Ratio ABG pH ABG pCO2 ABG pO2 ABG HCO3 ABG Total CO2 ABG O2 Saturation ABG Base Excess FiO2 Sodium 140.0 Potassium 4.3 Chloride 89 L Carbon Dioxide 40 H* Anion Gap 11 BUN 15 Creatinine 0.39 L Est GFR ( Amer) > 60 Est GFR (Non-Af Amer) > 60 Glucose 163 H Lactic Acid Calcium 9.2 Total Bilirubin 0.8 Direct Bilirubin 0.3 Neonat Total Bilirubin Not Reportable Neonat Direct Bilirubin Not Reportable Neonat Indirect Bili Not Reportable AST 26 ALT 24 Alkaline Phosphatase 78 Creatine Kinase 34 CK-MB (CK-2) 0.56 Troponin I < 0.012 Total Protein 7.0 Albumin 4.0 09/19/18 09/19/18 14:23 14:23 WBC RBC Hgb Hct MCV MCH MCHC RDW Plt Count Total Counted Seg Neutrophils % Seg Neuts % (Manual) Band Neutrophils % Lymphocytes % Lymphocytes % (Manual) Monocytes % Monocytes % (Manual) Eosinophils % Eosinophils % (Manual) Basophils % Basophils % (Manual) Absolute Neutrophils Abs Neuts (Manual) Absolute Lymphocytes Abs Lymphs (Manual) Absolute Monocytes Abs Monocytes (Manual) Absolute Eosinophils Absolute Eos (Manual) Absolute Basophils Abs Basophils (Manual) Platelet Comment Polychromasia Hypochromasia Stomatocytes Carbonic Acid 2.35 H HCO3/H2CO3 Ratio 18:1 ABG pH 7.35 ABG pCO2 78.0 H* ABG pO2 55.3 L ABG HCO3 42.3 H ABG Total CO2 44.7 H ABG O2 Saturation 85.8 L ABG Base Excess 13.0 FiO2 4L Sodium Potassium Chloride Carbon Dioxide Anion Gap BUN Creatinine Est GFR ( Amer) Est GFR (Non-Af Amer) Glucose Lactic Acid 1.0 Calcium Total Bilirubin Direct Bilirubin Neonat Total Bilirubin Neonat Direct Bilirubin Neonat Indirect Bili AST ALT Alkaline Phosphatase Creatine Kinase CK-MB (CK-2) Troponin I Total Protein Albumin Chest X-Ray 09/19/18 14:17 IMPRESSION: 1. No significant interval changes since the prior examination dated 04/02/2018. Findings suggest COPD. No acute findings. 09/19/18 15:53 At this time will admit to the hospital for further evaluation and treatment. Consulted with hospitalist and they are at the bedside at this time. They are going to administer appropriate antibiotics. - Vital Signs Vital signs: Temp Pulse Resp BP Pulse Ox 99 F 20 133/93 H 93 09/19/18 14:28 09/19/18 15:01 09/19/18 15:00 09/19/18 15:01 - Laboratory Result Diagrams: 09/19/18 14:23 09/19/18 14:23 Laboratory results interpreted by me: 09/19/18 09/19/18 09/19/18 14:23 14:23 14:23 Plt Count 122 L Seg Neuts % (Manual) 88 H Band Neutrophils % 2 L Lymphocytes % (Manual) 5 L Abs Neuts (Manual) 9.4 H Carbonic Acid 2.35 H ABG pCO2 78.0 H* ABG pO2 55.3 L ABG HCO3 42.3 H ABG Total CO2 44.7 H ABG O2 Saturation 85.8 L Chloride 89 L Carbon Dioxide 40 H* Creatinine 0.39 L Glucose 163 H - EKG Interpretation by Me EKG shows normal: [place], Intervals, QRS Complexes, ST-T Waves Rate: Tachycardia [place]/QRS: Right axis deviation Critical Care Note - Critical Care Note Total time excluding time spent on procedures (mins): 35 Comments: Hypoxia, respiratory failure, hypercarbia, noninvasive ventilatory support. Discharge - Discharge Clinical Impression: COPD exacerbation Hypercapnic respiratory failure Qualifiers: Chronicity: acute on chronic Qualified Code(s): J96.22 - Acute and chronic respiratory failure with hypercapnia Condition: Fair Disposition: ADMITTED INPATIENT [facility] Referrals: NORIS VALENTINE MD [Primary Care Provider] - Follow up as needed
[2018-09-19 14:36] LABS: HEMATOCRIT 37.8 % (36.0-47.0); HEMOGLOBIN 12.7 g/dL (12.0-15.5); MEAN CORPUSCULAR HEMOGLOBIN 30.3 pg (27.0-33.4); MEAN CORPUSCULAR HGB CONC 33.5 g/dL (32.0-36.0); MEAN CORPUSCULAR VOLUME 90 fl (80-97); PLATELET COUNT 122 10^3/uL (150-450); RED BLOOD COUNT 4.19 10^6/uL (3.72-5.28); RED CELL DISTRIBUTION WIDTH 13.8 % (11.5-14.0); WHITE BLOOD COUNT 10.4 10^3/uL (4.0-10.5)
--- NOTE | 2018-09-19 14:41 | RADIOLOGY REPORT (SQ) ---
EXAM DESCRIPTION: CHEST SINGLE VIEW COMPLETED DATE/TIME: 09/19/2018 2:30 pm REASON FOR STUDY: sob COMPARISON: 04/02/2018 EXAM PARAMETERS: NUMBER OF VIEWS: One view. TECHNIQUE: Single frontal radiographic view of the chest acquired. RADIATION DOSE: NA LIMITATIONS: None. FINDINGS: LUNGS AND PLEURA: Hyperinflation of the lungs and flattening of the diaphragms, stable fi ndings, suggests COPD. Small calcified granuloma in the periphery of the left upper lobe. No acute pulmonary consolidation. No pneumothorax or pleural effusion. MEDIASTINUM AND HILAR STRUCTURES: No masses. Contour normal. HEART AND VASCULAR STRUCTURES: Heart normal in size. Normal vasculature. BONES: No acute findings. HARDWARE: None in the chest. OTHER: No other significant finding. IMPRESSION: 1. No significant interval changes since the prior examination dated 04/02/2018. Findin gs suggest COPD. No acute findings. TECHNICAL DOCUMENTATION: JOB ID: [id number] [employer]- All Rights Reserved Reading location - IP/workstation name: [email or web address]
[2018-09-19 14:42] LABS: ARTERIAL BLOOD H2CO3 2.35 mmol/L (1.05-1.35); ARTERIAL BLOOD HCO3 42.3 mmol/L (20-24); ARTERIAL BLOOD O2 SATURATION 85.8 % (94-98); ARTERIAL BLOOD PH 7.35 (7.35-7.45); ARTERIAL BLOOD PO2 55.3 mmHg (80-100); ARTERIAL BLOOD TOTAL CO2 44.7 mmol/L (21-25)
[2018-09-19 14:44] LABS: ARTERIAL BLOOD FIO2 4L
[2018-09-19 15:02] LABS: ALANINE AMINOTRANSFERASE 24 U/L (9-52); ALKALINE PHOSPHATASE 78 U/L (38-126); ASPARTATE AMINO TRANSFERASE 26 U/L (14-36); BILIRUBIN,DIRECT 0.3 mg/dL (0.0-0.4); BILIRUBIN,TOTAL 0.8 mg/dL (0.2-1.3); BLOOD UREA NITROGEN 15 mg/dL (7-20); CALCIUM 9.2 mg/dL (8.4-10.2); CHLORIDE 89 mmol/L (98-107); CREATINE KINASE 34 U/L (30-135); GLUCOSE 163 mg/dL (75-110); POTASSIUM 4.3 mmol/L (3.6-5.0)
[2018-09-19 15:03] LABS: ABSOLUTE LYMPHOCYTES# (MANUAL) 0.5 10^3/uL (0.5-4.7); ABSOLUTE MONOCYTES # (MANUAL) 0.5 10^3/uL (0.1-1.4); ABSOLUTE NEUTROPHILS# (MANUAL) 9.4 10^3/uL (1.7-8.2); BAND NEUTROPHILS % (MANUAL) 2 % (3-5); BASOPHILS % (MANUAL) 0 % (0-2); EOSINOPHILS % (MANUAL) 0 % (0-6); LYMPHOCYTES % (MANUAL) 5 % (13-45); MONOCYTES % (MANUAL) 5 % (3-13); SEGMENTED NEUTROPHILS % (MAN) 88 % (42-78); TOTAL CELLS COUNTED 100
[2018-09-19 15:06] LABS: HYPOCHROMASIA 1+; STOMATOCYTES 1+
[2018-09-19 15:07] LABS: PLATELET COMMENT DECREASED; POLYCHROMASIA SLIGHT
[2018-09-19 15:08] LABS: ANION GAP 11 (5-19)
[2018-09-19 15:10] LABS: CARBON DIOXIDE 40 mmol/L (22-30)
[2018-09-19 15:13] LABS: CREATINE KINASE MB 0.56 ng/mL (<4.55); TROPONIN I < 0.012 ng/mL
[2018-09-19] MEDS ORDERED: ONDANSETRON HCL INJ/PF 4 MG/2 ML SDV IV PRN (16:21)
[2018-09-19] MEDS ORDERED: MAG HYDROX/AL HYDROX/SIMETH SUSP 30 ML UDCUP PO PRN (16:21)
[2018-09-19] MEDS ORDERED: LEVALBUTEROL HCL NEB 1.25 MG/3 ML AMPUL NEB PRN (16:21)
--- NOTE | 2018-09-19 16:47 | PDOC H&P ---
History of Present Illness Admission Date/PCP: NORIS ARREDONDO MD Patient complains of: Shortness of breath History of Present Illness: NOE KRUEGER is a 62 year old female with a past medical history of COPD who is home O2 dependent at 3 L/min and presented to the emergency department today via EMS for acute respiratory failure. Per the ED provider, EMS found her to have LOC and hypoxia with an oxygen saturation in the 40s upon their arrival. The patient was provided supplemental oxygen, BiPAP, and steroids. Upon her arrival to the emergency department, the patient was alert and oriented x4 but continued to be tachypneic. Evaluation in the emergency department revealed temperature 99, tachypnea (RR 22 ), tachycardia (HR 126), EKG demonstrated sinus tachycardia, chest x-ray was unremarkable other than her chronic COPD, CBC was unremarkable, and ABG revealed compensated respiratory acidosis with hypercapnia and mild hypoxia on 4 L via nasal cannula. The patient was subsequently placed on BiPAP and referred to the hospitalist service for admission and management of acute on chronic respiratory failure secondary to a COPD exacerbation. Past Medical History Cardiac Medical History: Reports: None Pulmonary Medical History: Reports: Asthma, Chronic Obstructive Pulmonary Disease (COPD) Denies: Intubation, Tuberculosis EENT Medical History: Reports: None Neurological Medical History: Reports: None Endocrine Medical History: Reports: None Renal/ Medical History: Reports: None Malignancy Medical History: Reports: None GI Medical History: Reports: Gastroesophageal Reflux Disease Musculoskeltal Medical History: Reports: None Skin Medical History: Reports: None Psychiatric Medical History: Reports: None Traumatic Medical History: Reports: None Hematology: Reports: None Past Surgical History Past Surgical History: Reports: Appendectomy, Hysterectomy Social History Information Source: Patient Lives with: Spouse/Significant other Smoking Status: Former Smoker Number of Years Smokin Last Time Smoked: 2009 Frequency of Alcohol Use: None Hx Recreational Drug Use: No Hx Prescription Drug Abuse: No - Advance Directive Resuscitation Status: Full Code Surrogate healthcare decision maker:: The patient's , John Krueger, [phone] Family History Family History: Reviewed & Not Pertinent Parental Family History Reviewed: Yes Children Family History Reviewed: Yes Sibling(s) Family History Reviewed.: Yes Medication/Allergy Allergies/Adverse Reactions: clindamycin [Clindamycin] Allergy (Severe, Verified 02/13/17 09:05) "Throat Swells Shut" Review of Systems Constitutional: PRESENT: weakness. ABSENT: chills, fever(s), headache(s), weight gain, weight loss Eyes: ABSENT: visual disturbances Ears: ABSENT: hearing changes Cardiovascular: ABSENT: chest pain, dyspnea on exertion, edema, orthropnea, palpitations Respiratory: PRESENT: cough, dyspnea, sputum. ABSENT: hemoptysis Gastrointestinal: ABSENT: abdominal pain, constipation, diarrhea, hematemesis, hematochezia, nausea, vomiting Genitourinary: ABSENT: dysuria, hematuria Musculoskeletal: ABSENT: joint swelling Integumentary: ABSENT: rash, wounds Neurological: ABSENT: abnormal gait, abnormal speech, confusion, dizziness, focal weakness, syncope Psychiatric: ABSENT: anxiety, depression, homidical ideation, suicidal ideation Endocrine: ABSENT: cold intolerance, heat intolerance, polydipsia, polyuria Hematologic/Lymphatic: ABSENT: easy bleeding, easy bruising Physical Exam Vital Signs: Temp Pulse Resp BP Pulse Ox 99 F 20 133/93 H 93 09/19/18 14:28 09/19/18 15:01 09/19/18 15:00 09/19/18 15:01 General appearance: PRESENT: mild distress, thin, well-developed Head exam: PRESENT: atraumatic, normocephalic Eye exam: PRESENT: conjunctiva pink, EOMI, PERRLA. ABSENT: scleral icterus Ear exam: PRESENT: normal external ear exam Mouth exam: PRESENT: moist, tongue midline Neck exam: ABSENT: carotid bruit, JVD, lymphadenopathy, thyromegaly Respiratory exam: PRESENT: decreased breath sounds, prolonged expiratory phas, rhonchi, symmetrical, tachypnea, wheezes, other - BiPAP. ABSENT: rales Cardiovascular exam: PRESENT: +S1, +S2, tachycardia. ABSENT: diastolic murmur, rubs, systolic murmur Pulses: PRESENT: normal dorsalis pedis pul Vascular exam: PRESENT: normal capillary refill GI/Abdominal exam: PRESENT: normal bowel sounds, soft. ABSENT: distended, guarding, mass, organolmegaly, rebound, tenderness Rectal exam: PRESENT: deferred Extremities exam: PRESENT: full ROM. ABSENT: calf tenderness, clubbing, pedal edema Neurological exam: PRESENT: alert, awake, oriented to person, oriented to place , oriented to time, oriented to situation, CN II-XII grossly intact. ABSENT: motor sensory deficit Psychiatric exam: PRESENT: appropriate affect, normal mood. ABSENT: homicidal ideation, suicidal ideation Skin exam: PRESENT: dry, intact, warm. ABSENT: cyanosis, rash Results Laboratory Results: 09/19/18 14:23 09/19/18 14:23 09/19/18 09/19/18 09/19/18 14:23 14:23 14:23 WBC 10.4 RBC 4.19 Hgb 12.7 Hct 37.8 MCV 90 MCH 30.3 MCHC 33.5 RDW 13.8 Plt Count 122 L Seg Neutrophils % Not Reportable Lymphocytes % Not Reportable Monocytes % Not Reportable Eosinophils % Not Reportable Basophils % Not Reportable Absolute Neutrophils Not Reportable Absolute Lymphocytes Not Reportable Absolute Monocytes Not Reportable Absolute Eosinophils Not Reportable Absolute Basophils Not Reportable Carbonic Acid 2.35 H HCO3/H2CO3 Ratio 18:1 ABG pH 7.35 ABG pCO2 78.0 H* ABG pO2 55.3 L ABG HCO3 42.3 H ABG O2 Saturation 85.8 L ABG Base Excess 13.0 FiO2 4L Sodium 140.0 Potassium 4.3 Chloride 89 L Carbon Dioxide 40 H* Anion Gap 11 BUN 15 Creatinine 0.39 L Est GFR ( Amer) > 60 Est GFR (Non-Af Amer) > 60 Glucose 163 H Lactic Acid Calcium 9.2 Total Bilirubin 0.8 AST 26 ALT 24 Alkaline Phosphatase 78 Total Protein 7.0 Albumin 4.0 09/19/18 14:23 WBC RBC Hgb Hct MCV MCH MCHC RDW Plt Count Seg Neutrophils % Lymphocytes % Monocytes % Eosinophils % Basophils % Absolute Neutrophils Absolute Lymphocytes Absolute Monocytes Absolute Eosinophils Absolute Basophils Carbonic Acid HCO3/H2CO3 Ratio ABG pH ABG pCO2 ABG pO2 ABG HCO3 ABG O2 Saturation ABG Base Excess FiO2 Sodium Potassium Chloride Carbon Dioxide Anion Gap BUN Creatinine Est GFR ( Amer) Est GFR (Non-Af Amer) Glucose Lactic Acid 1.0 Calcium Total Bilirubin AST ALT Alkaline Phosphatase Total Protein Albumin 09/19/18 09/19/18 14:23 14:23 Creatine Kinase 34 CK-MB (CK-2) 0.56 Troponin I < 0.012 Impressions: Chest X-Ray 09/19/18 14:17 IMPRESSION: 1. No significant interval changes since the prior examination dated 04/02/2018. Findings suggest COPD. No acute findings. Assessment & Plan - Diagnosis (1) Acute on chronic respiratory failure with hypoxia and hypercapnia Is this a current diagnosis for this admission?: Yes Plan: The patient was admitted with acute on chronic respiratory failure with hypoxia and hypercapnia; found by EMS to have SPO2 in the 40s on her baseline oxygen requirement of 3 L/min. They provided oxygen, BiPAP, Solu-Medrol with subsequent improvement in her respiratory status and mental alertness. In the emergency department she was found to have SPO2 of 86% on nasal cannula; advance to BiPAP. ABG while on nasal cannula revealed compensated respiratory acidosis with hypoxia and hypercapnia. Chest x-ray is benign. EKG demonstrates sinus tachycardia. She is admitted to [facility] on continuous cardiac telemetry. We will provide supplemental oxygen to maintain oxygen saturations greater than 89%. BiPAP nightly and as needed. IV Solu-Medrol. Scheduled and as needed nebulizer treatments. Mucinex. As the patient endorses increased sputum production over the previous 3-4 days, will place her on doxycycline for treatment of concurrent bronchitis. Flutter valve to bedside. (2) COPD exacerbation Is this a current diagnosis for this admission?: Yes Plan: With bronchitis. Plan as above. (3) Bronchitis Is this a current diagnosis for this admission?: Yes Plan: Patient endorses several days of purulent sputum production preceding her acute respiratory distress. Blood and sputum cultures pending. We will place her on doxycycline 100 mg p.o. twice daily. Remaining plan as above. (4) Protein calorie malnutrition Is this a current diagnosis for this admission?: Yes Plan: Frail, chronically ill-appearing female with reduced muscle mass and lack of subcutaneous fat. Underweight. She is placed on a low sodium, high fat, high protein diet. Registered dietitian is consulted. (5) Tachycardia Is this a current diagnosis for this admission?: Yes Plan: Secondary to #1. Monitor on continuous cardiac telemetry. Remaining plan as above. - Time Time Spent: 50 to 70 Minutes Medications reviewed and adjusted accordingly: Yes Anticipated discharge: Home - Inpatient Certification Based on my medical assessment, after consideration of the patient's comorbidities, presenting symptoms, or acuity I expect that the services needed warrant INPATIENT care.: Yes I certify that my determination is in accordance with my understanding of Medicare's requirements for reasonable and necessary INPATIENT services [42 CFR 412.3e].: Yes Medical Necessity: Need Close Monitoring Due to Risk of Patient Decompensation, Need for Nebulizer Therapy and Monitoring of Response
[2018-09-19] MEDS ORDERED: GUAIFENESIN 600 MG TABLET.SA PO ONE (17:00)
[2018-09-19] MEDS: ACETAMINOPHEN 325 MG TABLET PO PRN (18:45)
[2018-09-19 20:01] LABS: APPEARANCE,URINE SLIGHTLY-CLOUDY; BILIRUBIN,URINE NEGATIVE (NEGATIVE); COLOR,URINE YELLOW; GLUCOSE, URINE 50 mg/dL (NEGATIVE); KETONES,URINE TRACE mg/dL (NEGATIVE); LEUKOCYTE ESTERASE,URINE TRACE (NEGATIVE); NITRITE,URINE NEGATIVE (NEGATIVE); PROTEIN,URINE NEGATIVE (NEGATIVE); UROBILINOGEN,URINE NEGATIVE mg/dL (<2.0)
[2018-09-19] MEDS: IPRATROPIUM/ALBUTEROL 0.5-2.5 MG/3 ML AMPUL NEB SCH (20:07)
[2018-09-19] MEDS: HEPARIN SOD (PORCINE) 5,000 UNIT/ML 1 ML SYRINGE SUBCUT SCH (21:55)
[2018-09-19] MEDS: METHYLPREDNISOLONE INJ 40 MG/1 ML SDV IV SCH (21:55)
[2018-09-19] MEDS: FAMOTIDINE 20 MG TABLET PO SCH (21:56)
[2018-09-19] MEDS: DOXYCYCLINE HYCLATE 100 MG TABLET PO SCH (21:56)
--- NOTE | 2018-09-19 23:36 | EKG REPORT ---
SEVERITY:- OTHERWISE NORMAL ECG - SINUS TACHYCARDIA BORDERLINE RIGHT AXIS DEVIATION : Confirmed by: Haley Padilla MD 19-Sep-2018 23:35:22
[2018-09-20] MEDS: IPRATROPIUM/ALBUTEROL 0.5-2.5 MG/3 ML AMPUL NEB SCH ×4 (01:46→19:52)
[2018-09-20] MEDS: ACETAMINOPHEN 325 MG TABLET PO PRN (04:21)
[2018-09-20] MEDS: HEPARIN SOD (PORCINE) 5,000 UNIT/ML 1 ML SYRINGE SUBCUT SCH ×3 (05:33→22:04)
[2018-09-20] MEDS: METHYLPREDNISOLONE INJ 40 MG/1 ML SDV IV SCH ×3 (05:33→22:03)
[2018-09-20 05:53] LABS: HEMATOCRIT 37.4 % (36.0-47.0); HEMOGLOBIN 12.5 g/dL (12.0-15.5); MEAN CORPUSCULAR HGB CONC 33.4 g/dL (32.0-36.0); MEAN CORPUSCULAR VOLUME 90 fl (80-97); PLATELET COUNT 115 10^3/uL (150-450); RED BLOOD COUNT 4.16 10^6/uL (3.72-5.28); RED CELL DISTRIBUTION WIDTH 13.7 % (11.5-14.0); WHITE BLOOD COUNT 10.3 10^3/uL (4.0-10.5)
[2018-09-20 06:06] LABS: BLOOD UREA NITROGEN 21 mg/dL (7-20); CALCIUM 9.4 mg/dL (8.4-10.2); CHLORIDE 91 mmol/L (98-107); GLUCOSE 134 mg/dL (75-110); POTASSIUM 4.4 mmol/L (3.6-5.0); SODIUM 139.8 mmol/L (137-145)
[2018-09-20 06:17] LABS: ANION GAP 8 (5-19)
[2018-09-20 06:19] LABS: CARBON DIOXIDE 41 mmol/L (22-30)
[2018-09-20 06:23] LABS: ABSOLUTE LYMPHOCYTES# (MANUAL) 0.4 10^3/uL (0.5-4.7); ABSOLUTE MONOCYTES # (MANUAL) 0.8 10^3/uL (0.1-1.4); ABSOLUTE NEUTROPHILS# (MANUAL) 9.1 10^3/uL (1.7-8.2); BASOPHILS % (MANUAL) 0 % (0-2); EOSINOPHILS % (MANUAL) 0 % (0-6); LYMPHOCYTES % (MANUAL) 4 % (13-45); MONOCYTES % (MANUAL) 8 % (3-13); SEGMENTED NEUTROPHILS % (MAN) 73 % (42-78); TOTAL CELLS COUNTED 100
[2018-09-20 06:24] LABS: BAND NEUTROPHILS % (MANUAL) 15 % (3-5); PLATELET COMMENT DECREASED; RBC MORPHOLOGY COMMENT NORMO-CYTIC/CHROMIC; TOXIC VACUOLATION PRESENT
[2018-09-20] MEDS: DOXYCYCLINE HYCLATE 100 MG TABLET PO SCH ×2 (09:56→22:03)
[2018-09-20] MEDS: GUAIFENESIN 600 MG TABLET.SA PO SCH ×2 (09:56→10:00)
[2018-09-20] MEDS: DOCUSATE SODIUM 100 MG CAPSULE PO SCH (09:56)
[2018-09-20] MEDS: FLUTICASONE/SALMETEROL DISKUS 250-50 MCG/DOSE IH SCH ×2 (09:56→22:03)
[2018-09-20] MEDS: FAMOTIDINE 20 MG TABLET PO SCH ×2 (09:56→22:03)
--- NOTE | 2018-09-20 12:57 | PROGRESS NOTE E ---
Progress Note NAME: NOE CLAROS : 1955 AGE: 62Y DATE: 09/20/2018 ROOM: 309 SUBJECTIVE: The patient is currently lying in bed. She states she feels better today in comparison to when she came in. She really wants the BiPAP off. The patient denies any nausea, vomiting, diarrhea. No chest pain. No fevers, chills. The patient denies any cough or significant sputum production overnight, and the patient does not voice any other concerns at this time. REVIEW OF SYSTEMS: The rest of the review of systems is negative. MEDICATIONS: Reviewed. OBJECTIVE: GENERAL: The patient is a 62-year-old female who is awake, alert. She is oriented to person, place, time and situation. She does not appear to be in any acute distress. VITAL SIGNS: Temperature is 99.0, pulse 101, respirations 16, blood pressure 138/85. Oxygen saturation is 92% on 45% FiO2 on BiPAP. SKIN: Warm, dry. No rashes. Not diaphoretic. HEENT: Pupils equal, round, reactive to light and accommodation. Conjunctivae are pink. No evidence of JVP. CVS: Heart is regular. There is no rub. CHEST: Patient does have rhonchorous breath sounds throughout both lung gloria. Coarse. ABDOMEN: Soft, nontender. EXTREMITIES: No clubbing, cyanosis or edema. PSYCHIATRIC: Appropriate affect. Pleasant mood. DIAGNOSTICS: Lab values are as follows: Hematology obtained on 09/20/2018: WBCs are 10.3, hemoglobin is 12.5, hematocrit is 37.4, platelet count is 115,000. Chemistry obtained on 09/20/2018: Sodium is 139, potassium 4.4, chloride is 91, carbon dioxide is 41, BUN 12, creatinine 0.33, glucose 134. Calcium is 9.4. IMPRESSION AND PLAN: 1. ACUTE ON CHRONIC HYPOXEMIC AND HYPERCAPNIC RESPIRATORY FAILURE. The patient did require BiPAP overnight. Continue with Solu-Medrol as well as nebulizers, and follow. 2. CHRONIC OBSTRUCTIVE PULMONARY DISEASE EXACERBATION. Will resume the patient's home inhalers and add Mucinex, given the patient's sounds of rhonchi, and follow. 3. PROTEIN CALORIE MALNOURISHMENT. The patient does have a low creatinine. This is moderate. 4. HYPERLIPIDEMIA. Will continue statin. 5. GASTROESOPHAGEAL REFLUX DISEASE. Will continue PPI therapy. DISPOSITION: The patient is a FULL CODE. Pending patient's symptomatology and diagnostic findings, will reevaluate in the a.m. Will admit the patient to inpatient IMCU. The patient's expected length of stay will surpass 2 midnights. Time spent on this followup, including assessment, plan, physical examination, patient education and review of records, is 25 minutes. DICTATING PHYSICIAN: IZABEL ARELLANO NP [id number] Y#: [id number] ID: [id number] JOB#: [id number] ACCT: [id number] cc: >
[2018-09-20 14:32] LABS: ARTERIAL BLOOD BASE EXCESS 12.7 mmol/L; ARTERIAL BLOOD H2CO3 2.21 mmol/L (1.05-1.35); ARTERIAL BLOOD HCO3 41.3 mmol/L (20-24); ARTERIAL BLOOD O2 SATURATION 93.3 % (94-98); ARTERIAL BLOOD PH 7.37 (7.35-7.45); ARTERIAL BLOOD PO2 72.1 mmHg (80-100); ARTERIAL BLOOD TOTAL CO2 43.5 mmol/L (21-25)
[2018-09-20 14:35] LABS: ARTERIAL BLOOD FIO2 45%; ARTERIAL BLOOD PCO2 73.5 mmHg (35-45)
--- NOTE | 2018-09-20 14:42 | PDOC CONSULTATION ---
Consultation Consult Date: 09/20/18 Attending physician:: PEARL HARMAN Consult reason:: Acute on chronic respiratory failure History of Present Illness Admission Date/PCP: 09/20/18 08:05 NORIS ARREDONDO MD History of Present Illness: NOE CLAROS is a 62 year old female,well known to the opiate practice 3 days of feeling poorly increasing cough notes of breath felt machine at home was not working and her oxygen supply was changed this works a little however her came home and found a purple with SaO2 of 45% she was subsequently brought to the emergency room she responded to high flow oxygen and BiPAP she admits to cough productive of dark yellow phlegm as well as fevers and chills she denies hemoptysis she did not wearing oxygen for approximately 4 years and has not smoked in last 10 years no pets no recent travel Past Medical History Cardiac Medical History: Reports: None, Hyperlipidema, Hypertension Pulmonary Medical History: Reports: Asthma, Chronic Obstructive Pulmonary Disease (COPD) Denies: Intubation, Tuberculosis EENT Medical History: Reports: None Neurological Medical History: Reports: None Endocrine Medical History: Reports: None Renal/ Medical History: Reports: None Malignancy Medical History: Reports: None GI Medical History: Reports: Gastroesophageal Reflux Disease Musculoskeltal Medical History: Reports: None Skin Medical History: Reports: None Psychiatric Medical History: Reports: None Traumatic Medical History: Reports: None Hematology: Reports: None Denies: Sickle Cell Disease Infectious Medical History: Denies: HIV Past Surgical History Past Surgical History: Reports: Appendectomy, Hysterectomy Social History Information Source: Patient, DrPushpa Boateng, [facility] Records Lives with: Spouse/Significant other Smoking Status: Former Smoker Number of Years Smokin Last Time Smoked: 2009 Frequency of Alcohol Use: None Hx Recreational Drug Use: No Hx Prescription Drug Abuse: No Do you have pets?: No Have you had any respiratory illnesses as a child?: No Have you been exposed to any sick contacts recently?: Yes Have you had any recent respiratory illnesses?: Yes Have you travelled outside of [place] in the past 12 months?: No - Advance Directive Resuscitation Status: Full Code Family History Family History: CAD, Hypertension Parental Family History Reviewed: Yes Children Family History Reviewed: Yes Sibling(s) Family History Reviewed.: Yes Medication/Allergy Home Medications: Acetaminophen [Tylenol 325 mg Tablet] 650 mg PO Q12HP PRN 09/19/18 Atorvastatin Calcium [Lipitor 20 mg Tablet] 20 mg PO QHS 09/19/18 Calcium Carbonate/Vitamin D3 [Oyster Shell 500-Vit D3 200 Tb] 1 tab PO DAILY 08/27 Cholecalciferol (Vitamin D3) [Vitamin D3 1000 Unit Tablet] 1,000 unit PO DAILY 09/19/18 Fluticasone/Salmeterol [Advair 250-50 Diskus 14 Dose/Diskus] 1 puff IH Q12 09/19 Multivitamin [Tab-A-Lefty (Multiple Vitamin) Tablet] 1 tab PO DAILY 09/19/18 Omeprazole 40 mg PO DAILY 09/19/18 Allergies/Adverse Reactions: clindamycin [Clindamycin] Allergy (Severe, Verified 02/13/17 09:05) "Throat Swells Shut" Review of Systems Constitutional: PRESENT: chills, fever(s), weakness Eyes: ABSENT: visual disturbances Ears: ABSENT: hearing changes Nose, Mouth, and Throat: PRESENT: sore throat. ABSENT: mouth pain Cardiovascular: PRESENT: dyspnea on exertion, orthropnea. ABSENT: palpitations Respiratory: PRESENT: cough, dyspnea, sputum. ABSENT: hemoptysis Gastrointestinal: ABSENT: abdominal pain, bloating, coffee ground emesis, dysphagia, hematemesis, hematochezia, melena Genitourinary: ABSENT: dysuria, hematuria Musculoskeletal: ABSENT: deformity, joint swelling Integumentary: ABSENT: pruritus, rash Neurological: ABSENT: abnormal gait, abnormal movements, abnormal speech, focal weakness, frequent falls, lack of coordination, memory loss Psychiatric: ABSENT: hallucinations, homidical ideation, suicidal ideation Endocrine: ABSENT: cold intolerance, heat intolerance, polydipsia, polyuria Hematologic/Lymphatic: ABSENT: easy bruising, lymphadenopathy Allergic/Immunologic: ABSENT: seasonal rhinorrhea Physical Exam Vital Signs: Temp Pulse Resp BP Pulse Ox 97.9 F 93 18 123/85 96 09/20/18 11:20 09/20/18 11:20 09/20/18 11:20 09/20/18 11:20 09/20/18 11:20 Intake & Output 09/19/18 09/20/18 09/21/18 06:59 06:59 06:59 Intake Total 100 Balance 100 General appearance: PRESENT: no acute distress, cooperative, disheveled, well- developed Head exam: PRESENT: atraumatic, normocephalic Eye exam: PRESENT: conjunctiva pale, EOMI. ABSENT: nystagmus, periorbital swelling Mouth exam: PRESENT: dry mucosa, neck supple, tongue midline Neck exam: ABSENT: carotid bruit, JVD, lymphadenopathy, thyromegaly, tracheal deviation, tracheostomy Respiratory exam: PRESENT: decreased breath sounds, prolonged expiratory phas, rales, rhonchi, symmetrical, unlabored, wheezes. ABSENT: retraction, stridor, tachypnea Cardiovascular exam: PRESENT: RRR, +S1, +S2 Pulses: PRESENT: normal radial pulses GI/Abdominal exam: PRESENT: soft. ABSENT: tenderness Extremities exam: ABSENT: calf tenderness, clubbing, joint swelling, pedal edema Musculoskeletal exam: ABSENT: deformity, dislocation Neurological exam: PRESENT: alert, awake Psychiatric exam: PRESENT: flat affect Skin exam: PRESENT: dry, warm Results Impressions: Chest X-Ray 09/19/18 14:17 IMPRESSION: 1. No significant interval changes since the prior examination dated 04/02/2018. Findings suggest COPD. No acute findings. Assessment & Plan - Diagnosis (1) Pulmonary cachexia due to chronic obstructive pulmonary disease Is this a current diagnosis for this admission?: Yes Plan: Nutritional supplements low in carbohydrates (2) Acute on chronic respiratory failure with hypoxia and hypercapnia Is this a current diagnosis for this admission?: Yes Plan: Continue current bronchodilator therapy (3) Bronchitis Is this a current diagnosis for this admission?: Yes Plan: Sputum culture as you have done chest physiotherapy adjust antibiotics as needed - Plan Summary Plan Summary: Thank you very much for allowing me to see Ms. Claros and help participate in her care.
[2018-09-20] MEDS: ATORVASTATIN CALCIUM 20 MG TABLET PO SCH (22:02)
[2018-09-21] MEDS: IPRATROPIUM/ALBUTEROL 0.5-2.5 MG/3 ML AMPUL NEB SCH ×4 (01:42→20:03)
[2018-09-21] MEDS: LANSOPRAZOLE 30 MG TAB.RAP.DR PO SCH (05:26)
[2018-09-21] MEDS: METHYLPREDNISOLONE INJ 40 MG/1 ML SDV IV SCH ×3 (05:26→21:12)
[2018-09-21] MEDS: HEPARIN SOD (PORCINE) 5,000 UNIT/ML 1 ML SYRINGE SUBCUT SCH ×3 (05:29→21:12)
[2018-09-21 05:49] LABS: ANION GAP 9 (5-19); BLOOD UREA NITROGEN 23 mg/dL (7-20); CALCIUM 9.2 mg/dL (8.4-10.2); CARBON DIOXIDE 39 mmol/L (22-30); CHLORIDE 93 mmol/L (98-107); GLUCOSE 124 mg/dL (75-110); POTASSIUM 4.3 mmol/L (3.6-5.0); SODIUM 141.2 mmol/L (137-145)
[2018-09-21] MEDS: GUAIFENESIN 600 MG TABLET.SA PO SCH ×2 (09:17→21:12)
[2018-09-21] MEDS: DOXYCYCLINE HYCLATE 100 MG TABLET PO SCH (09:17)
[2018-09-21] MEDS: FLUTICASONE/SALMETEROL DISKUS 250-50 MCG/DOSE IH SCH ×2 (09:17→21:12)
[2018-09-21] MEDS: DOCUSATE SODIUM 100 MG CAPSULE PO SCH (09:17)
[2018-09-21] MEDS: FAMOTIDINE 20 MG TABLET PO SCH ×2 (09:17→21:12)
--- NOTE | 2018-09-21 12:48 | PDOC PROGRESS REPORT ---
Subjective Progress Note for:: 09/21/18 Subjective:: Patient states she feels about the same Reason For Visit: COPD EXACERBATION Physical Exam Vital Signs: Temp Pulse Resp BP Pulse Ox 98.2 F 89 24 H 115/74 91 L 09/21/18 07:18 09/21/18 07:55 09/21/18 07:55 09/21/18 07:18 09/21/18 07:55 Intake & Output 09/20/18 09/21/18 09/22/18 06:59 06:59 06:59 Intake Total 1400 Balance 1400 Weight 47.9 kg General appearance: PRESENT: no acute distress, cooperative, disheveled, thin Head exam: PRESENT: atraumatic, normocephalic Eye exam: PRESENT: conjunctiva pale, EOMI. ABSENT: nystagmus, periorbital swelling Mouth exam: PRESENT: dry mucosa, neck supple, tongue midline Neck exam: ABSENT: carotid bruit, JVD, lymphadenopathy, thyromegaly, tracheal deviation, tracheostomy Respiratory exam: PRESENT: decreased breath sounds, prolonged expiratory phas, rales, rhonchi, unlabored, wheezes. ABSENT: retraction, stridor Cardiovascular exam: PRESENT: RRR, +S1, +S2 Pulses: PRESENT: normal radial pulses GI/Abdominal exam: PRESENT: soft. ABSENT: tenderness Gentrourinary exam: PRESENT: indwelling catheter Extremities exam: ABSENT: calf tenderness, clubbing, joint swelling, pedal edema Musculoskeletal exam: ABSENT: deformity, dislocation Neurological exam: PRESENT: alert, awake Psychiatric exam: PRESENT: appropriate affect Skin exam: PRESENT: dry, warm Results Laboratory Results: 09/21/18 04:26 09/20/18 09/21/18 14:20 04:26 Carbonic Acid 2.21 H HCO3/H2CO3 Ratio 18:1 ABG pH 7.37 ABG pCO2 73.5 H* ABG pO2 72.1 L ABG HCO3 41.3 H ABG O2 Saturation 93.3 L ABG Base Excess 12.7 FiO2 45% Sodium 141.2 Potassium 4.3 Chloride 93 L Carbon Dioxide 39 H Anion Gap 9 BUN 23 H Creatinine 0.33 L Est GFR ( Amer) > 60 Est GFR (Non-Af Amer) > 60 Glucose 124 H Calcium 9.2 Magnesium 1.8 Impressions: Chest X-Ray 12/11/18 14:17 IMPRESSION: 1. No significant interval changes since the prior examination dated 04/02/2018. Findings suggest COPD. No acute findings. Assessment & Plan - Diagnosis (1) Pulmonary cachexia due to chronic obstructive pulmonary disease Is this a current diagnosis for this admission?: Yes Plan: Nutritional supplements low in carbohydrates (2) Acute on chronic respiratory failure with hypoxia and hypercapnia Is this a current diagnosis for this admission?: Yes Plan: Discussed with Dr. Ojeda agree with CTA The above patient has failed BiPAP. This patient would benefit from noninvasive mechanical ventilation via the trilogy AVAPS/AE and faster responding AVAPS rates. The trilogy is able to provide a target tidal volume and also adjusting the EPAP pressures to maintain a patent airway as well as an oral backup rate this machine will help improve PaCO2 levels. The severity of the patient's condition will lead to future hospitalizations and readmissions as well as life-threatening situations without the use of this device day and night. Trilogy home vent needed for hypercapnic respiratory failure. [facility] or [facility] to follow for trilogy set up. (3) Bronchitis Is this a current diagnosis for this admission?: Yes Plan: Sputum culture as you have done chest physiotherapy adjust antibiotics as needed
[2018-09-21 14:24] LABS: PATH REVIEW PATHOLOGIST REVIEWED
--- NOTE | 2018-09-21 14:51 | RADIOLOGY REPORT (SQ) ---
EXAM DESCRIPTION: CTA CHEST COMPLETED DATE/TIME: 09/21/2018 2:10 pm REASON FOR STUDY: Hypoxia, tachypena, cough COMPARISON: Chest x-ray dated 09/19/[address] scan dated August 2017 TECHNIQUE: CT scan of the chest performed using helical scanning technique with dynamic intravenous contrast injection. Images reviewed with lung, soft tissue and bone windows. Reconstructed coronal and sagittal MPR images reviewed. Additional 3 dimensional post-processing performed to develop Maximal Intensity Projection images (ID P). All images stored on PACS. All CT scanners at this facility use dose modulation, iterative reconstruction, and/or weight based d osing when appropriate to reduce radiation dose to as low as reasonably achievable (ALARA). [facility]: Dose Right [facility]: CareDose [facility]: Dose Right [facility]: Teradose 4D [facility]: Draker CONTRAST TYPE AND DOSE: contrast/concentration: Isovue 370.00 mg/ml; Total Contrast Delivered: 56.0 ml; Total Saline Delivered: 90.0 ml Contrast bolus optimized for the pulmonary arteries. Not diagnostic for the aorta. RENAL FUNCTION: Creatinine 0.33 RADIATION DOSE: CT Rad equipment meets quality standard of care and radiation dose reduction techniq ues were employed. CTDIvol: 4.6 - 11.3 mGy. DLP: 193 mGy-cm. . LIMITATIONS: None. FINDINGS: LUNGS AND PLEURA: There is bibasilar airspace consolidation left greater than right most c onsistent with atelectatic changes although I cannot exclude basilar infiltrates. There are some min imal scattered patchy airspace densities in the remainder of the lower lung gloria which could repres ent patchy pneumonic infiltrates. No pleural effusions are identified. No pneumothorax is seen. Fa irly extensive emphysematous changes are again identified. Calcified granuloma is again identified o n the left. AORTA AND GREAT VESSELS: No aneurysm. Contrast bolus not optimized for the aorta. HEART: No pericardial effusion. No significant coronary artery calcifications. PULMONARY ARTERIES: No emboli visualized in the main pulmonary arteries or the segmental branches. HILAR AND MEDIASTINAL STRUCTURES: No identified masses or abnormal nodes. HARDWARE: None in the chest. UPPER ABDOMEN: No significant findings. Limited exam. THYROID AND OTHER SOFT TISSUES: Calcified thyroid nodule is identified on the left. No adenopathy. BONES: No acute or significant finding. 3D MIPS: Confirm above findings. OTHER: No other significant finding. IMPRESSION: No evidence for pulmonary embolic disease. Bibasilar airspace consolidation left greate r than right most consistent with atelectatic changes although I cannot exclude basilar infiltrates. There is some minimal scattered patchy airspace densities in remainder the lower lung gloria which c ould represent patchy pneumonic infiltrates chronic appearing emphysematous changes are again identif ied. No pleural effusions are identified. Other findings as noted above COMMENT: Quality ID # [id number]: Final reports with documentation of one or more dose reduction techniques (e.g., Automated exposure control, adjustment of the mA and/or kV according to patient size, use of iterative reconstruction technique) TECHNICAL DOCUMENTATION: JOB ID: [id number] [employer]- All Rights Reserved Reading location - IP/workstation name: [email or web address]
--- NOTE | 2018-09-21 17:47 | PROGRESS NOTE E ---
Progress Note NAME: NOE CLAROS : 1955 AGE: 62Y DATE: 09/21/2018 ROOM: 309 SUBJECTIVE: The patient is lying in bed. The patient is still requiring the BiPAP. The patient has been seen by her food bagging machine operator, Dr. Valentine. The patient has not made any significant improvement in comparison to yesterday. The patient is agreeable to chest CT. The patient has been afebrile, blood pressure has been in a good range, and the patient does not voice any other concerns at this time. REVIEW OF SYSTEMS: The rest of the review of systems is negative. MEDICATIONS: Medications have been reviewed. OBJECTIVE: GENERAL: The patient is a very frail, cachectic, 62-year-old female who is awake, alert, and oriented to person, place, time, and situation. She is verbal, conversational, does not appear to be distressed. VITAL SIGNS: As follows: Temperature is 98.3, pulse 85, respirations 22, blood pressure 123/74, oxygen saturation is 94% on 45% FIO2 on BiPAP. SKIN: Pale, dry. No rash. No diaphoretic. HEENT: Pupils are reactive. There is no evidence of JVP. CARDIOVASCULAR: Heart is regular. No rub. CHEST: The patient has very coarse breath sounds, diminished, symmetrical. ABDOMEN: Soft, nontender. EXTREMITIES: No clubbing, cyanosis, edema. PSYCHIATRIC: Appropriate affect. Pleasant mood. DIAGNOSTICS: Lab values are as follows. Hematology obtained on 09/20/2018: WBC 2.3, hemoglobin 12.5, hematocrit 37.4, platelet count is 115,000. Chemistry obtained on 09/21/2018: Sodium is 141, potassium 4.3, chloride 93, carbon dioxide 39, BUN 23, creatinine 0.33, glucose is 124, calcium is 9.2, magnesium is 1.8. IMPRESSION AND PLAN: 1. ACUTE ON CHRONIC HYPOXEMIC AND HYPERCAPNIC RESPIRATORY FAILURE. The patient did require BiPAP again overnight. Will continue Solu-Medrol as well as nebulizers. Will go ahead and obtain CTA of the chest and follow. 2. CHRONIC OBSTRUCTIVE PULMONARY DISEASE EXACERBATION. Will continue medications as per the above. 3. PROTEIN CALORIE MALNOURISHMENT WITH A BMI OF 17. The patient has a very low creatinine. 4. HYPERLIPIDEMIA. Will continue statin. 5. GERD. Will continue PPI. DISPOSITION: THE PATIENT IS A FULL CODE. Pending the patient's symptomatology and diagnostic findings, will re-evaluate in the a.m. Time spent on this followup, including assessment/plan, physical examination, patient education, review of records, speciality collaboration, is 25 minutes. DICTATING PHYSICIAN: IZABEL ARELLANO NP [id number] PHY#: [id number] ID: [id number] JOB#: [id number] ACCT: [id number] cc: >
[2018-09-21] MEDS: PIPERACILLIN SODIUM/TAZOBACTAM 4.5 GM in NORMAL SALINE 100 ML IV SCH (19:57)
[2018-09-21] MEDS: ATORVASTATIN CALCIUM 20 MG TABLET PO SCH (21:12)
[2018-09-22] MEDS: PIPERACILLIN SODIUM/TAZOBACTAM 4.5 GM in NORMAL SALINE 100 ML IV SCH ×5 (00:20→23:41)
[2018-09-22] MEDS: IPRATROPIUM/ALBUTEROL 0.5-2.5 MG/3 ML AMPUL NEB SCH ×4 (02:16→19:42)
[2018-09-22] MEDS: LANSOPRAZOLE 30 MG TAB.RAP.DR PO SCH (05:28)
[2018-09-22] MEDS: METHYLPREDNISOLONE INJ 40 MG/1 ML SDV IV SCH (05:28)
[2018-09-22] MEDS: HEPARIN SOD (PORCINE) 5,000 UNIT/ML 1 ML SYRINGE SUBCUT SCH ×3 (05:29→22:43)
[2018-09-22] MEDS ORDERED: METHYLPREDNISOLONE INJ 40 MG/1 ML SDV IV SCH (08:55)
[2018-09-22] MEDS: FAMOTIDINE 20 MG TABLET PO SCH ×2 (11:36→22:41)
[2018-09-22] MEDS: GUAIFENESIN 600 MG TABLET.SA PO SCH ×2 (11:36→22:40)
[2018-09-22] MEDS: DOCUSATE SODIUM 100 MG CAPSULE PO SCH (11:36)
[2018-09-22] MEDS: FLUTICASONE/SALMETEROL DISKUS 250-50 MCG/DOSE IH SCH ×2 (11:36→22:42)
[2018-09-22] MEDS: METHYLPREDNISOLONE INJ 125 MG/2 ML SDV IV SCH ×2 (13:44→22:40)
--- NOTE | 2018-09-22 14:42 | PROGRESS NOTE E ---
Progress Note NAME: NOE CLAROS : 1955 AGE: 62Y DATE: 09/22/2018 ROOM: 309 SUBJECTIVE: The patient is currently lying in bed. The patient states she feels a little better in comparison to yesterday. The patient does have a very strong cough but has been unable to produce any sputum. The patient has been afebrile, her blood pressure has been in acceptable range, and the patient does not voice any other concerns at this time. REVIEW OF SYSTEMS: The rest of the review of systems is negative. MEDICATIONS: Medications have been reviewed. OBJECTIVE: GENERAL: The patient is a 62-year-old female who is awake, alert, and oriented to person, place, time, and situation. She is verbal, conversational, does not appear to be distressed. VITAL SIGNS: As follows: Temperature is 97.9, pulse 77, respirations 26, blood pressure 134/82, oxygen saturation is 91% on 45% FIO2 on BiPAP. SKIN: Warm and dry. No rash. She is not diaphoretic. She is pale. HEENT: Pupils are reactive. No evidence of JVP. CARDIOVASCULAR: Heart is regular. No rub. CHEST: The patient does have rhonchorous lung sounds in upper lung gloria which is different in comparison to yesterday when she was just quite diminished, symmetrical, mildly labored. ABDOMEN: Soft, nontender. EXTREMITIES: There is no edema. PSYCHIATRIC: Appropriate affect. Pleasant mood. DIAGNOSTICS: Lab values are as follows. Hematology obtained on 09/20/2018: WBCs are 10.3, hemoglobin is 12.5, hematocrit is 37.4, platelet count is 115,000. Chemistry obtained on 09/21/2018: Sodium is 141, potassium 4.3, chloride 93, carbon dioxide 39, BUN 23, creatinine is 0.33, glucose 124, calcium is 9.2, magnesium is 1.8. IMPRESSION AND PLAN: 1. ACUTE ON CHRONIC HYPOXEMIC AND HYPERCAPNIC RESPIRATORY FAILURE. The patient is still requiring BiPAP. I have increased her steroids since she is a little more wheezy. 2. CHRONIC OBSTRUCTIVE PULMONARY DISEASE EXACERBATION PER #1. 3. POSSIBLE BILATERAL PNEUMONIA. Uncertain of this and no definite evidence on CT scan. I have covered the patient empirically with Zosyn for now. 4. PROTEIN CALORIE MALNOURISHMENT WITH A BMI OF 17. The patient has an extremely low creatinine. 5. HYPERLIPIDEMIA. Continue statin. 6. GASTROESOPHAGEAL REFLUX DISEASE. Will continue PPI therapy. DISPOSITION: THE PATIENT IS A FULL CODE. Pending the patient's symptomatology and diagnostic findings, will re-evaluate in the a.m. Time spent on this followup, including assessment/plan, physical examination, patient education, review of records, is 20 minutes. DICTATING PHYSICIAN: IZABEL ARELLANO NP [id number] Y#: [id number] ID: [id number] JOB#: [id number] ACCT: [id number] cc: >
[2018-09-22] MEDS: ACETAMINOPHEN 325 MG TABLET PO PRN (22:40)
[2018-09-22] MEDS: MONTELUKAST SODIUM 10 MG TABLET PO SCH (22:41)
[2018-09-22] MEDS: ATORVASTATIN CALCIUM 20 MG TABLET PO SCH (22:41)
[2018-09-22] MEDS ORDERED: MELATONIN 5 MG TABLET PO ONE (23:30)
[2018-09-23] MEDS: IPRATROPIUM/ALBUTEROL 0.5-2.5 MG/3 ML AMPUL NEB SCH ×4 (02:35→19:55)
[2018-09-23 04:55] LABS: ABSOLUTE LYMPHOCYTES (AUTO) 0.3 10^3/uL (0.5-4.7); ABSOLUTE MONOCYTES (AUTO) 0.1 10^3/uL (0.1-1.4); ABSOLUTE NEUT (AUTO) 5.3 10^3/uL (1.7-8.2); BASOPHILS % (AUTO) 0.1 % (0-2); HEMATOCRIT 33.5 % (36.0-47.0); HEMOGLOBIN 11.3 g/dL (12.0-15.5); LYMPHOCYTES % (AUTO) 5.4 % (13-45); MEAN CORPUSCULAR HEMOGLOBIN 30.5 pg (27.0-33.4); MEAN CORPUSCULAR HGB CONC 33.6 g/dL (32.0-36.0); MEAN CORPUSCULAR VOLUME 91 fl (80-97); MONOCYTES % (AUTO) 2.5 % (3-13); PLATELET COUNT 126 10^3/uL (150-450); RED CELL DISTRIBUTION WIDTH 13.7 % (11.5-14.0); TOTAL CELLS COUNTED % (AUTO) 100 %; WHITE BLOOD COUNT 5.8 10^3/uL (4.0-10.5)
[2018-09-23] MEDS: HEPARIN SOD (PORCINE) 5,000 UNIT/ML 1 ML SYRINGE SUBCUT SCH ×3 (05:06→22:19)
[2018-09-23 05:22] LABS: BLOOD UREA NITROGEN 29 mg/dL (7-20); CALCIUM 8.9 mg/dL (8.4-10.2); GLUCOSE 133 mg/dL (75-110); POTASSIUM 4.1 mmol/L (3.6-5.0)
[2018-09-23] MEDS: LANSOPRAZOLE 30 MG TAB.RAP.DR PO SCH (05:24)
[2018-09-23] MEDS: METHYLPREDNISOLONE INJ 125 MG/2 ML SDV IV SCH ×3 (05:24→22:30)
[2018-09-23] MEDS: PIPERACILLIN SODIUM/TAZOBACTAM 4.5 GM in NORMAL SALINE 100 ML IV SCH (05:24)
[2018-09-23 05:28] LABS: CHLORIDE 96 mmol/L (98-107); SODIUM 139.2 mmol/L (137-145)
[2018-09-23 06:00] LABS: CARBON DIOXIDE 68 mmol/L (22-30)
[2018-09-23 06:01] LABS: ANION GAP 3 (5-19)
[2018-09-23 06:14] LABS: ARTERIAL BLOOD BASE EXCESS 15.1 mmol/L; ARTERIAL BLOOD H2CO3 2.06 mmol/L (1.05-1.35); ARTERIAL BLOOD HCO3 42.5 mmol/L (20-24); ARTERIAL BLOOD O2 SATURATION 90.6 % (94-98); ARTERIAL BLOOD PCO2 68.5 mmHg (35-45); ARTERIAL BLOOD PH 7.41 (7.35-7.45); ARTERIAL BLOOD PO2 60.9 mmHg (80-100); ARTERIAL BLOOD TOTAL CO2 44.6 mmol/L (21-25)
[2018-09-23 06:16] LABS: ARTERIAL BLOOD FIO2 45%
[2018-09-23] MEDS: GUAIFENESIN 600 MG TABLET.SA PO SCH ×2 (09:36→22:31)
[2018-09-23] MEDS: FAMOTIDINE 20 MG TABLET PO SCH ×2 (09:36→22:31)
[2018-09-23] MEDS: FLUTICASONE/SALMETEROL DISKUS 250-50 MCG/DOSE IH SCH ×2 (09:36→22:30)
[2018-09-23] MEDS: DOCUSATE SODIUM 100 MG CAPSULE PO SCH (09:36)
[2018-09-23] MEDS: CEFTRIAXONE SODIUM 2,000 MG in DEXTROSE 5%-WATER 100 ML IV SCH (17:31)
[2018-09-23] MEDS ORDERED: CEFTRIAXONE 2 GM/D5W RTU 2 GM/50 ML RTUPB IV SCH (18:00)
--- NOTE | 2018-09-23 20:22 | PROGRESS NOTE E ---
Progress Note NAME: NOE CLAROS : 1955 AGE: 62Y DATE: 09/23/2018 ROOM: 309 SUBJECTIVE: The patient is currently lying in bed. She states she feels about the same as she did yesterday. The patient is now producing more sputum though. She denies any nausea, vomiting, diarrhea. No dizziness, chest pain. No fevers, chills. She does not have much of an appetite. States the steroids distort her appetite and the patient does not voice any other concerns at this time. BRIEF HISTORY: The patient is a 62-year-old female who has a long history of oxygen dependent COPD. The patient presented to the emergency department on 09/20/2018 due to increasing dyspnea. The patient has been seen by Dr. Valentine, pulmonology, during her stay. The patient did have a CTA of the chest, which was negative for PE. The patient did have sputum that was reflective of strep pneumoniae and the patient's antibiotic coverage was deescalated to Rocephin. The patient's bandemia has improved, however, the patient's respiratory status remains about the same, just gradual improvement in her pCO2. REVIEW OF SYSTEMS: The rest of review of systems negative. MEDICATIONS: Have been reviewed. OBJECTIVE: GENERAL: The patient is a 62-year-old female who is awake, alert, and oriented to person, time, place, situation. She is verbal, conversational. She does not appear to be distressed. VITAL SIGNS: Temperature is 97.5, pulse 79, respirations 22, blood pressure is 161/85, oxygen saturation is 96% on 4 liters nasal cannula. SKIN: Warm and dry. No rash. She is not diaphoretic. HEENT: Pupils equal, round, and reactive to light and accommodation. Conjunctivae are pink. No evidence of JVP. CARDIOVASCULAR: Heart is regular. There is no rub. CHEST: The patient does have quite diminished lung sounds, expiratory wheezes noted in upper lung gloria. Does have some rhonchorous lung sounds in left lung field. ABDOMEN: Thin. EXTREMITIES: There is no edema. DIAGNOSTICS: Lab values are as follows - Hematology obtained on 09/23/2018; WBC 5.8, hemoglobin is 11.3, hematocrit is 33.5, platelet count is 126,000. ABG obtained on 09/23/2018; pH 7.41, pCO2 of 68.5, pO2 of 60.9, bicarb is 42. Chemistry obtained on 09/23/2018; sodium is 139, potassium is 4.1, chloride is 96, BUN 29, creatinine 0.4, glucose 133, calcium is 8.9. IMPRESSION AND PLAN: 1. STREP PNEUMO, BILATERAL PNEUMONIA. This is pansensitive. Will cover with 2 grams of Rocephin to deescalate coverage. 2. ACUTE ON CHRONIC HYPOXEMIC AND HYPERCAPNIC RESPIRATORY FAILURE. The patient is still wheezing. She is on BiPAP. Continue steroids. Follow. 3. CHRONIC OBSTRUCTIVE PULMONARY DISEASE EXACERBATION. As per the above. 4. HYPERLIPIDEMIA. Continue statin. 5. GERD. Continue PPI therapy. 6. PROTEIN CALORIE MALNOURISHED WITH A BMI OF 17. Appears to be a chronic issue for her. The patient's creatinine is extremely low. CODE STATUS: The patient is a full code. DISPOSITION: Depending on the patient's symptomatology and diagnostic findings will reevaluate in the a.m. TIME SPENT: On this follow up, including assessment and plan, physical examination, patient education, review of records is 25 minutes. DICTATING PHYSICIAN: IZABEL ARELLANO NP [id number] [id number] PHY#: [id number] ID: [id number] JOB#: [id number] ACCT: [id number] cc: >
[2018-09-23] MEDS: ATORVASTATIN CALCIUM 20 MG TABLET PO SCH (22:30)
[2018-09-23] MEDS: MONTELUKAST SODIUM 10 MG TABLET PO SCH (22:30)
[2018-09-23] MEDS: MELATONIN 5 MG TABLET PO SCH (22:31)
[2018-09-24] MEDS: IPRATROPIUM/ALBUTEROL 0.5-2.5 MG/3 ML AMPUL NEB SCH ×4 (02:07→19:33)
[2018-09-24] MEDS: HEPARIN SOD (PORCINE) 5,000 UNIT/ML 1 ML SYRINGE SUBCUT SCH ×3 (05:26→21:02)
[2018-09-24] MEDS: METHYLPREDNISOLONE INJ 125 MG/2 ML SDV IV SCH ×3 (05:30→21:01)
[2018-09-24] MEDS: LANSOPRAZOLE 30 MG TAB.RAP.DR PO SCH (05:30)
[2018-09-24 05:49] LABS: BLOOD UREA NITROGEN 30 mg/dL (7-20); CALCIUM 8.7 mg/dL (8.4-10.2); CHLORIDE 97 mmol/L (98-107); GLUCOSE 133 mg/dL (75-110); POTASSIUM 4.1 mmol/L (3.6-5.0); SODIUM 139.2 mmol/L (137-145)
[2018-09-24 05:59] LABS: CARBON DIOXIDE 39 mmol/L (22-30)
[2018-09-24 06:06] LABS: ANION GAP 3 (5-19)
[2018-09-24] MEDS: DOCUSATE SODIUM 100 MG CAPSULE PO SCH (09:06)
[2018-09-24] MEDS: FAMOTIDINE 20 MG TABLET PO SCH ×2 (09:09→21:02)
[2018-09-24] MEDS: GUAIFENESIN 600 MG TABLET.SA PO SCH ×2 (09:09→21:02)
[2018-09-24] MEDS: FLUTICASONE/SALMETEROL DISKUS 250-50 MCG/DOSE IH SCH ×2 (09:09→21:02)
--- NOTE | 2018-09-24 17:14 | PDOC PROGRESS REPORT ---
Subjective Progress Note for:: 09/24/18 Subjective:: No adverse events overnight. No new complaints. Says she is spending about 8 hours a day while awake on BiPAP. Her says this is an improvement because previously she was entirely BiPAP dependent. She has a very nasty sounding cough but her cough is too weak to be able to produce anything. Reason For Visit: COPD EXACERBATION Physical Exam Vital Signs: Temp Pulse Resp BP Pulse Ox 98.7 F 72 19 133/74 H 97 09/24/18 16:32 09/24/18 16:32 09/24/18 16:32 09/24/18 16:32 09/24/18 16:32 Intake & Output 09/23/18 09/24/18 09/25/18 06:59 06:59 06:59 Intake Total 844 499 Balance 844 499 Weight 51.8 kg 50.5 kg General appearance: PRESENT: cooperative, mild distress, thin Respiratory exam: PRESENT: accessory muscle use, decreased breath sounds, prolonged expiratory phas, rhonchi, symmetrical. ABSENT: rales, tachypnea, unlabored, wheezes Cardiovascular exam: PRESENT: RRR, +S1, +S2 Vascular exam: PRESENT: normal capillary refill GI/Abdominal exam: PRESENT: normal bowel sounds, soft. ABSENT: distended, guarding, rebound, tenderness Extremities exam: PRESENT: clubbing. ABSENT: pedal edema Musculoskeletal exam: PRESENT: normal inspection. ABSENT: deformity Neurological exam: PRESENT: alert, awake, oriented to person, oriented to place , oriented to time, oriented to situation, other - Very tremulous Psychiatric exam: PRESENT: appropriate affect, normal mood Skin exam: PRESENT: dry, warm Results Laboratory Results: 09/23/18 04:22 09/24/18 04:30 09/24/18 04:30 Sodium 139.2 Potassium 4.1 Chloride 97 L Carbon Dioxide 39 H Anion Gap 3 L BUN 30 H Creatinine 0.34 L Est GFR ( Amer) > 60 Est GFR (Non-Af Amer) > 60 Glucose 133 H Calcium 8.7 Magnesium 1.9 09/20/18 13:15 Sputum Sputum Culture - Final Streptococcus Pneumoniae Normal Celia Impressions: Chest X-Ray 09/19/18 14:17 IMPRESSION: 1. No significant interval changes since the prior examination dated 04/02/2018. Findings suggest COPD. No acute findings. Chest/Abdomen CTA 09/21/18 00:00 IMPRESSION: No evidence for pulmonary embolic disease. Bibasilar airspace consolidation left greater than right most consistent with atelectatic changes although I cannot exclude basilar infiltrates. There is some minimal scattered patchy airspace densities in remainder the lower lung gloria which could represent patchy pneumonic infiltrates chronic appearing emphysematous changes are again identified. No pleural effusions are identified. Other findings as noted above Assessment & Plan - Diagnosis (1) Acute on chronic respiratory failure with hypoxia and hypercapnia Is this a current diagnosis for this admission?: Yes Plan: Her COPD looks to be end-stage by the looks of her. We're trying to slowly wean her from BiPAP. (2) COPD exacerbation Is this a current diagnosis for this admission?: Yes Plan: Continue steroids and bronchodilators along with oxygen support. (3) Pulmonary cachexia due to chronic obstructive pulmonary disease Is this a current diagnosis for this admission?: Yes Plan: She is not eating very much because it is very difficult for her to breathe and eat at the same time. - Time Time Spent with patient: 15-24 minutes
[2018-09-24] MEDS: CEFTRIAXONE SODIUM 2,000 MG in DEXTROSE 5%-WATER 100 ML IV SCH (17:27)
[2018-09-24] MEDS: ACETAMINOPHEN 325 MG TABLET PO PRN (21:01)
[2018-09-24] MEDS: ATORVASTATIN CALCIUM 20 MG TABLET PO SCH (21:01)
[2018-09-24] MEDS: MONTELUKAST SODIUM 10 MG TABLET PO SCH (21:02)
[2018-09-24] MEDS: MELATONIN 5 MG TABLET PO SCH (21:03)
[2018-09-25] MEDS: IPRATROPIUM/ALBUTEROL 0.5-2.5 MG/3 ML AMPUL NEB SCH ×4 (01:13→20:15)
[2018-09-25] MEDS: HEPARIN SOD (PORCINE) 5,000 UNIT/ML 1 ML SYRINGE SUBCUT SCH ×3 (05:08→22:48)
[2018-09-25] MEDS: METHYLPREDNISOLONE INJ 125 MG/2 ML SDV IV SCH ×3 (05:28→22:50)
[2018-09-25] MEDS: LANSOPRAZOLE 30 MG TAB.RAP.DR PO SCH (05:28)
[2018-09-25] MEDS: DOCUSATE SODIUM 100 MG CAPSULE PO SCH (10:10)
[2018-09-25] MEDS: FLUTICASONE/SALMETEROL DISKUS 250-50 MCG/DOSE IH SCH ×2 (10:10→22:51)
[2018-09-25] MEDS: GUAIFENESIN 600 MG TABLET.SA PO SCH ×2 (10:10→22:50)
[2018-09-25] MEDS: FAMOTIDINE 20 MG TABLET PO SCH ×2 (10:10→22:50)
--- NOTE | 2018-09-25 17:48 | PDOC PROGRESS REPORT ---
Subjective Progress Note for:: 09/25/18 Subjective:: She has been off BiPAP for most of the day. She is on about 5 L per nasal cannula. Her oxygen concentrator at home only goes up to 6. Vital signs been stable. She is less tremulous today. She still gets short of breath whenever she talks. Reason For Visit: COPD EXACERBATION Physical Exam Vital Signs: Temp Pulse Resp BP Pulse Ox 98.6 F 97 28 H 136/92 H 87 L 09/25/18 15:36 09/25/18 15:36 09/25/18 15:36 09/25/18 15:36 09/25/18 15:36 Intake & Output 09/24/18 09/25/18 09/26/18 06:59 06:59 06:59 Intake Total 964 697 5944 Balance 758 856 9697 Weight 50.5 kg 52.2 kg General appearance: PRESENT: cooperative, mild distress, thin Respiratory exam: PRESENT: accessory muscle use, decreased breath sounds, prolonged expiratory phase, rhonchi, symmetrical. ABSENT: rales, tachypnea, unlabored, wheezes Cardiovascular exam: PRESENT: RRR, +S1, +S2 Vascular exam: PRESENT: normal capillary refill GI/Abdominal exam: PRESENT: normal bowel sounds, soft. ABSENT: distended, guarding, rebound, tenderness Extremities exam: PRESENT: clubbing. ABSENT: pedal edema Musculoskeletal exam: PRESENT: normal inspection. ABSENT: deformity Neurological exam: PRESENT: alert, awake, oriented to person, oriented to place , oriented to time, oriented to situation, other - tremulous Psychiatric exam: PRESENT: appropriate affect, normal mood Skin exam: PRESENT: dry, warm Results Laboratory Results: 09/23/18 04:22 09/24/18 04:30 09/20/18 13:15 Sputum Gram Stain - Final 09/20/18 13:15 Sputum Sputum Culture - Final Streptococcus Pneumoniae Morax.(Branhamella)Catarrhalis Normal Celia Impressions: Chest X-Ray 09/19/18 14:17 IMPRESSION: 1. No significant interval changes since the prior examination dated 04/02/2018. Findings suggest COPD. No acute findings. Chest/Abdomen CTA 09/21/18 00:00 IMPRESSION: No evidence for pulmonary embolic disease. Bibasilar airspace consolidation left greater than right most consistent with atelectatic changes although I cannot exclude basilar infiltrates. There is some minimal scattered patchy airspace densities in remainder the lower lung gloria which could represent patchy pneumonic infiltrates chronic appearing emphysematous changes are again identified. No pleural effusions are identified. Other findings as noted above Assessment & Plan - Diagnosis (1) Acute on chronic respiratory failure with hypoxia and hypercapnia Is this a current diagnosis for this admission?: Yes Plan: Her COPD looks to be end-stage by the looks of her. We're trying to slowly wean her from BiPAP. If we can get her oxygen down a little bit more we can send her home, but I need to make sure that she is down to a level low enough so that when she goes home if she needs to turn up her oxygen temporarily on her concentrator she has some room on it to do so. (2) COPD exacerbation Is this a current diagnosis for this admission?: Yes Plan: Continue steroids and bronchodilators along with oxygen support. (3) Pulmonary cachexia due to chronic obstructive pulmonary disease Is this a current diagnosis for this admission?: Yes Plan: She is not eating very much because it is very difficult for her to breathe and eat at the same time. - Time Time Spent with patient: 15-24 minutes
[2018-09-25] MEDS: CEFTRIAXONE SODIUM 2,000 MG in DEXTROSE 5%-WATER 100 ML IV SCH (18:19)
[2018-09-25] MEDS: MONTELUKAST SODIUM 10 MG TABLET PO SCH (22:50)
[2018-09-25] MEDS: ATORVASTATIN CALCIUM 20 MG TABLET PO SCH (22:50)
[2018-09-25] MEDS: MELATONIN 5 MG TABLET PO SCH (22:51)
[2018-09-26] MEDS: IPRATROPIUM/ALBUTEROL 0.5-2.5 MG/3 ML AMPUL NEB SCH ×4 (01:59→20:07)
[2018-09-26] MEDS: HEPARIN SOD (PORCINE) 5,000 UNIT/ML 1 ML SYRINGE SUBCUT SCH ×3 (05:29→22:22)
[2018-09-26] MEDS: LANSOPRAZOLE 30 MG TAB.RAP.DR PO SCH (05:34)
[2018-09-26] MEDS: METHYLPREDNISOLONE INJ 125 MG/2 ML SDV IV SCH ×2 (05:34→14:05)
[2018-09-26] MEDS: FLUTICASONE/SALMETEROL DISKUS 250-50 MCG/DOSE IH SCH ×2 (10:00→22:25)
[2018-09-26] MEDS: DOCUSATE SODIUM 100 MG CAPSULE PO SCH (10:00)
[2018-09-26] MEDS: GUAIFENESIN 600 MG TABLET.SA PO SCH ×2 (10:01→22:25)
[2018-09-26] MEDS: FAMOTIDINE 20 MG TABLET PO SCH ×2 (10:01→22:25)
--- NOTE | 2018-09-26 16:57 | PDOC PROGRESS REPORT ---
Subjective Progress Note for:: 09/26/18 Subjective:: She had a coughing spell around 2 PM today and began to have a lot of respiratory distress at that point. Put her back on BiPAP and she had been on that for a couple of hours by the time I saw her. She was doing better but she was still feeling as though she needed the extra ventilatory support at that time. Her cough has been mostly nonproductive. No fevers. Reason For Visit: COPD EXACERBATION Physical Exam Vital Signs: Temp Pulse Resp BP Pulse Ox 98.9 F 107 H 18 138/86 H 93 09/26/18 11:23 09/26/18 14:00 09/26/18 13:49 09/26/18 11:23 09/26/18 13:49 Intake & Output 09/25/18 09/26/18 09/27/18 06:59 06:59 06:59 Intake Total 988 1208 346 Output Total 601 Balance 988 1208 -255 Weight 52.2 kg 52.3 kg General appearance: PRESENT: cooperative, mild distress, thin Respiratory exam: PRESENT: accessory muscle use, decreased breath sounds, prolonged expiratory phase, rhonchi, symmetrical. ABSENT: rales, tachypnea, unlabored, wheezes. She sounds pretty much the same on the nasal cannula as she does on BiPAP. Cardiovascular exam: PRESENT: RRR, +S1, +S2 Vascular exam: PRESENT: normal capillary refill GI/Abdominal exam: PRESENT: normal bowel sounds, soft. ABSENT: distended, guarding, rebound, tenderness Extremities exam: PRESENT: clubbing. ABSENT: pedal edema Musculoskeletal exam: PRESENT: normal inspection. ABSENT: deformity Neurological exam: PRESENT: alert, awake, oriented to person, oriented to place , oriented to time, oriented to situation, other - tremulous Psychiatric exam: PRESENT: appropriate affect, normal mood Skin exam: PRESENT: dry, warm Results Laboratory Results: 09/23/18 04:22 09/24/18 04:30 09/20/18 13:15 Sputum Gram Stain - Final 09/20/18 13:15 Sputum Sputum Culture - Final Streptococcus Pneumoniae Morax.(Branhamella)Catarrhalis Normal Celia Impressions: Chest X-Ray 09/19/18 14:17 IMPRESSION: 1. No significant interval changes since the prior examination dated 04/02/2018. Findings suggest COPD. No acute findings. Chest/Abdomen CTA 09/21/18 00:00 IMPRESSION: No evidence for pulmonary embolic disease. Bibasilar airspace consolidation left greater than right most consistent with atelectatic changes although I cannot exclude basilar infiltrates. There is some minimal scattered patchy airspace densities in remainder the lower lung gloria which could represent patchy pneumonic infiltrates chronic appearing emphysematous changes are again identified. No pleural effusions are identified. Other findings as noted above Assessment & Plan - Diagnosis (1) Acute on chronic respiratory failure with hypoxia and hypercapnia Is this a current diagnosis for this admission?: Yes Plan: Her COPD looks to be end-stage by the looks of her. We're trying to slowly wean her from BiPAP. If we can get her oxygen down a little bit more we can send her home. She has her trilogy machine at home, and said she is supposed to coordinate her discharge with the person who is going to teach her how to run the machine. If we can get her off BiPAP and back on a nasal cannula tomorrow, we can probably send her home at that time depending on her clinical presentation. (2) COPD exacerbation Is this a current diagnosis for this admission?: Yes Plan: Continue steroids and bronchodilators along with oxygen support. (3) Pulmonary cachexia due to chronic obstructive pulmonary disease Is this a current diagnosis for this admission?: Yes Plan: She is not eating very much because it is very difficult for her to breathe and eat at the same time. - Time Time Spent with patient: 15-24 minutes
[2018-09-26] MEDS: CEFTRIAXONE SODIUM 2,000 MG in DEXTROSE 5%-WATER 100 ML IV SCH (17:50)
--- NOTE | 2018-09-26 17:50 | PDOC PROGRESS REPORT ---
Subjective Progress Note for:: 09/22/18 Subjective:: Patient states she feels about the same Reason For Visit: COPD EXACERBATION Physical Exam Vital Signs: Temp Pulse Resp BP Pulse Ox 98.3 F 74 30 H 123/70 95 09/22/18 08:09 09/22/18 08:09 09/22/18 08:09 09/22/18 08:09 09/22/18 08:09 Intake & Output 09/21/18 09/22/18 09/23/18 06:59 06:59 06:59 Intake Total 1400 895 Balance 1400 895 Weight 47.9 kg 50.9 kg General appearance: PRESENT: cooperative, disheveled, mild distress, thin Head exam: PRESENT: atraumatic, normocephalic Eye exam: PRESENT: conjunctiva pale, EOMI. ABSENT: nystagmus, scleral icterus Mouth exam: PRESENT: dry mucosa, neck supple, tongue midline Neck exam: ABSENT: carotid bruit, JVD, lymphadenopathy, thyromegaly, tracheal deviation, tracheostomy Respiratory exam: PRESENT: decreased breath sounds, prolonged expiratory phas, rales, rhonchi, wheezes. ABSENT: retraction, stridor, unlabored Cardiovascular exam: PRESENT: RRR, +S1, +S2 Pulses: PRESENT: normal radial pulses GI/Abdominal exam: PRESENT: soft. ABSENT: tenderness Extremities exam: ABSENT: calf tenderness, clubbing, joint swelling, pedal edema Musculoskeletal exam: ABSENT: deformity, dislocation Neurological exam: PRESENT: alert, awake Psychiatric exam: PRESENT: appropriate affect Skin exam: PRESENT: dry, warm Results Laboratory Results: 09/21/18 04:26 Impressions: Chest X-Ray 09/19/18 14:17 IMPRESSION: 1. No significant interval changes since the prior examination dated 04/02/2018. Findings suggest COPD. No acute findings. Chest/Abdomen CTA 09/21/18 00:00 IMPRESSION: No evidence for pulmonary embolic disease. Bibasilar airspace consolidation left greater than right most consistent with atelectatic changes although I cannot exclude basilar infiltrates. There is some minimal scattered patchy airspace densities in remainder the lower lung gloria which could represent patchy pneumonic infiltrates chronic appearing emphysematous changes are again identified. No pleural effusions are identified. Other findings as noted above Assessment & Plan - Diagnosis (1) Pulmonary cachexia due to chronic obstructive pulmonary disease Is this a current diagnosis for this admission?: Yes Plan: Nutritional supplements low in carbohydrates (2) Acute on chronic respiratory failure with hypoxia and hypercapnia Is this a current diagnosis for this admission?: Yes Plan: Discussed with Dr. Ojeda agree with CTA The above patient has failed BiPAP. This patient would benefit from noninvasive mechanical ventilation via the trilogy AVAPS/AE and faster responding AVAPS rates. The trilogy is able to provide a target tidal volume and also adjusting the EPAP pressures to maintain a patent airway as well as an oral backup rate this machine will help improve PaCO2 levels. The severity of the patient's condition will lead to future hospitalizations and readmissions as well as life-threatening situations without the use of this device day and night. Trilogy home vent needed for hypercapnic respiratory failure. [facility] or [facility] to follow for trilogy set up. (3) Bronchitis Is this a current diagnosis for this admission?: Yes Plan: Sputum culture as you have done chest physiotherapy adjust antibiotics as needed
[2018-09-26 21:47] LABS: ARTERIAL BLOOD BASE EXCESS 18.4 mmol/L; ARTERIAL BLOOD H2CO3 2.88 mmol/L (1.05-1.35); ARTERIAL BLOOD O2 SATURATION 97.7 % (94-98); ARTERIAL BLOOD PH 7.33 (7.35-7.45); ARTERIAL BLOOD PO2 117.8 mmHg (80-100)
[2018-09-26 21:49] LABS: ARTERIAL BLOOD PCO2 95.8 mmHg (35-45)
[2018-09-26] MEDS: METHYLPREDNISOLONE INJ 40 MG/1 ML SDV IV SCH (22:25)
[2018-09-26] MEDS: ATORVASTATIN CALCIUM 20 MG TABLET PO SCH (22:25)
[2018-09-26] MEDS: MELATONIN 5 MG TABLET PO SCH (22:25)
[2018-09-26] MEDS: MONTELUKAST SODIUM 10 MG TABLET PO SCH (22:25)
[2018-09-27] MEDS: IPRATROPIUM/ALBUTEROL 0.5-2.5 MG/3 ML AMPUL NEB SCH ×3 (02:25→13:56)
[2018-09-27] MEDS: HEPARIN SOD (PORCINE) 5,000 UNIT/ML 1 ML SYRINGE SUBCUT SCH ×2 (06:46→15:17)
[2018-09-27] MEDS: LANSOPRAZOLE 30 MG TAB.RAP.DR PO SCH (06:54)
[2018-09-27] MEDS: FAMOTIDINE 20 MG TABLET PO SCH (09:52)
[2018-09-27] MEDS: DOCUSATE SODIUM 100 MG CAPSULE PO SCH (09:52)
[2018-09-27] MEDS: METHYLPREDNISOLONE INJ 40 MG/1 ML SDV IV SCH (09:53)
[2018-09-27] MEDS: GUAIFENESIN 600 MG TABLET.SA PO SCH (09:53)
[2018-09-27] MEDS: FLUTICASONE/SALMETEROL DISKUS 250-50 MCG/DOSE IH SCH (09:54)
[2018-09-27] MEDS: CEFTRIAXONE SODIUM 2,000 MG in DEXTROSE 5%-WATER 100 ML IV SCH (17:12)
[2018-09-27 18:37] VITALS: BP 127/79
--- NOTE | 2018-09-27 22:02 | PDOC DISCHARGE SUMMARY ---
General - Admit/Disc Date/PCP Admission Date/Primary Care Provider: 09/20/18 08:05 NORIS VALENTINE MD Discharge Date: 09/27/18 - Discharge Diagnosis (1) Acute on chronic respiratory failure with hypoxia and hypercapnia Is this a current diagnosis for this admission?: Yes Summary: The patient remains off of BiPAP therapy all day today. She does have a trilogy at home for nighttime use. She will continue her nebulizer therapy, inhalers and steroid taper. She will follow-up with Dr. Valentine (2) Bronchitis Is this a current diagnosis for this admission?: Yes Summary: She is allergic to clindamycin and so I did not prescribe azithromycin. Instead I will give her Augmentin 875 mg twice daily for 7 days to complete therapy. (3) COPD exacerbation Is this a current diagnosis for this admission?: Yes Summary: She will continue her nebulizers and Advair therapy as well as oxygen and her trilogy ventilator for nighttime use. (4) Pulmonary cachexia due to chronic obstructive pulmonary disease Is this a current diagnosis for this admission?: Yes Summary: Her BMI is only 19.3. Because of the severity of her chronic pulmonary disease it is difficult for her to eat without severe fatigue and dyspnea. - Additional Information Resuscitation Status: Full Code Discharge Diet: As Tolerated Discharge Activity: Balance Activity w/Rest, Energy Conservation Prescriptions: Amox Tr/Potassium Clavulanate [Augmentin 875-125 mg Tablet] 1 tab PO BID 7 Days #14 tablet Ipratropium/Albuterol Sulfate [Duoneb 3 ml Ampul] 3 ml NEB RTQ6 60 Days #120 vial.neb Levalbuterol HCl [Xopenex Neb 1.25 mg/3 ml Ampul] 1.25 mg NEB RTQ4HP PRN 30 Days #60 vial.neb PRN Reason: Montelukast Sodium [Singulair 10 mg Tablet] 10 mg PO QHS 30 Days #30 tablet Prednisone [Deltasone 10 mg Tablet] 10 mg PO ASDIR PRN #21 tablet PRN Reason: Home Medications: Acetaminophen [Tylenol 325 mg Tablet] 650 mg PO Q12HP PRN 09/19/18 Atorvastatin Calcium [Lipitor 20 mg Tablet] 20 mg PO QHS 09/19/18 Calcium Carbonate/Vitamin D3 [Oyster Shell 500-Vit D3 200 Tb] 1 tab PO DAILY 09/19/18 Cholecalciferol (Vitamin D3) [Vitamin D3 1000 Unit Tablet] 1,000 unit PO DAILY 09/19/18 Fluticasone/Salmeterol [Advair 250-50 Diskus 14 Dose/Diskus] 1 puff IH Q12 09/19/18 Multivitamin [Tab-A-Lefty (Multiple Vitamin) Tablet] 1 tab PO DAILY 09/19/18 Omeprazole 40 mg PO DAILY 09/19/18 Amox Tr/Potassium Clavulanate [Augmentin 875-125 mg Tablet] 1 tab PO BID 7 Days #14 tablet 09/27/18 Guaifenesin [Mucinex Sr 600 mg Tablet.sa] 1,200 mg PO Q12 tablet.sa 09/27/18 Ipratropium/Albuterol Sulfate [Duoneb 3 ml Ampul] 3 ml NEB RTQ6 60 Days #120 vial.neb 09/27/18 Levalbuterol HCl [Xopenex Neb 1.25 mg/3 ml Ampul] 1.25 mg NEB RTQ4HP PRN 30 Days #60 vial.neb 09/27/18 Melatonin [Melatonin 5 mg Tablet] 5 mg PO QHS tablet 09/27/18 Montelukast Sodium [Singulair 10 mg Tablet] 10 mg PO QHS 30 Days #30 tablet 09/27/18 Prednisone [Deltasone 10 mg Tablet] 10 mg PO ASDIR PRN #21 tablet 09/27/18 History of Present Illness Patient complains of: Shortness of breath History of Present Illness: NOE CLAROS is a 62 year old female with a long history of severe chronic obstructive pulmonary disease. She began to experience increased difficulty breathing and presented to the hospital on September 25. Hospital Course Hospital Course: The patient required continuous BiPAP initially. She was started on antibiotic therapy as well as inhalers and intravenous steroids. With ongoing treatment she was able to be off of her BiPAP all day today without exhibiting significant desaturation. She feels that she is back to baseline and so she will return home. She will continue her Advair as well as nebulizer therapies. She does have a home trilogy unit and oxygen as well. Physical Exam Vital Signs: Temp Pulse Resp BP Pulse Ox 98.8 F 77 18 127/79 H 93 09/27/18 19:00 09/27/18 19:00 09/27/18 19:00 09/27/18 19:00 09/27/18 19:00 Intake & Output 09/26/18 09/27/18 09/28/18 06:59 06:59 06:59 Intake Total 1208 1266 450 Output Total 1351 Balance 1208 -85 450 Weight 52.3 kg 52.6 kg General appearance: PRESENT: no acute distress, cooperative, thin Head exam: PRESENT: atraumatic, normocephalic Eye exam: PRESENT: conjunctiva pink. ABSENT: scleral icterus Neck exam: PRESENT: full ROM. ABSENT: carotid bruit, JVD, lymphadenopathy Respiratory exam: PRESENT: symmetrical, wheezes - Faint expiratory wheezes. ABSENT: clear to auscultation shai, rhonchi Cardiovascular exam: PRESENT: RRR, +S1, +S2 GI/Abdominal exam: PRESENT: normal bowel sounds, soft. ABSENT: tenderness Neurological exam: PRESENT: alert, awake, oriented to person, oriented to place, oriented to time, oriented to situation, CN II-XII grossly intact, other - Tremulous Psychiatric exam: PRESENT: appropriate affect, normal mood Skin exam: PRESENT: dry, normal color, warm Results Laboratory Results: 09/23/18 04:22 09/24/18 04:30 09/19/18 09/19/18 14:23 14:23 Creatine Kinase 34 CK-MB (CK-2) 0.56 Troponin I < 0.012 Impressions: Chest X-Ray 09/19/18 14:17 IMPRESSION: 1. No significant interval changes since the prior examination dated 04/02/2018. Findings suggest COPD. No acute findings. Chest/Abdomen CTA 09/21/18 00:00 IMPRESSION: No evidence for pulmonary embolic disease. Bibasilar airspace consolidation left greater than right most consistent with atelectatic changes although I cannot exclude basilar infiltrates. There is some minimal scattered patchy airspace densities in remainder the lower lung gloria which could represent patchy pneumonic infiltrates chronic appearing emphysematous changes are again identified. No pleural effusions are identified. Other findings as noted above Qualifiers - * PATIENT BEING DISCHARGED WITH ANY OF THE FOLLOWING DIAGNOSIS: No Plan Discharge Plan: As above Time Spent: Greater than 30 Minutes
== END 2018-09-27 19:50 | disposition home or self-care (01) | DRG 189 ==
LOC: ER 14:13 → INTOOBSV 16:27 → EH 16:27 → 3N 18:00 → OBSVTOIN 09-20 08:05
PROVIDERS: ADMIT Family Medicine; ATTEND Family Medicine
PROC: 5A09557 Assistance with Respiratory Ventilation, Greater than 96 Consecutive Hours, Continuous Positive Airway Pressure (ICD-10-PCS; principal; 2018-09-19)
PROC: 3E0F73Z Introduction of Anti-inflammatory into Respiratory Tract, Via Natural or Artificial Opening (ICD-10-PCS; 2018-09-19)
PROC: 3E02340 Introduction of Influenza Vaccine into Muscle, Percutaneous Approach (ICD-10-PCS; 2018-09-27)
DX: J96.22 Acute and chronic respiratory failure with hypercapnia (principal); J44.1 Chronic obstructive pulmonary disease with (acute) exacerbation; R64 Cachexia; Z68.1 Body mass index [BMI] 19.9 or less, adult; J96.21 Acute and chronic respiratory failure with hypoxia; E78.00 Pure hypercholesterolemia, unspecified; I10 Essential (primary) hypertension; K21.9 Gastro-esophageal reflux disease without esophagitis; B95.3 Streptococcus pneumoniae as the cause of diseases classified elsewhere; Z88.3 Allergy status to other anti-infective agents; Z79.899 Other long term (current) drug therapy; Z23 Encounter for immunization; Z90.710 Acquired absence of both cervix and uterus; Z87.891 Personal history of nicotine dependence; Z82.49 Family history of ischemic heart disease and other diseases of the circulatory system
CPT/HCPCS: 36415; 36600; 71045; 71275; 80048; 80053; 81001; 82550; 82553; 82803; 83605; 83735; 84484; 85025; 87040; 87070; 87077; 87186; 87205; 90686; 93005; 93010; 94640; 94660; 94667; 94668; 99291; G0378; J0696; J1644; J2543; J2920; J2930; J3490; J7620

== ENCOUNTER 2019-02-27 23:47 | Inpatient (IN) | payer MEDICARE, OTHER ==
[2019-02-27] MEDS ORDERED: IPRATROPIUM/ALBUTEROL 0.5-2.5 MG/3 ML AMPUL NEB ONE (23:53)
[2019-02-28] MEDS ORDERED: KETAMINE HCL INJ 500 MG/10 ML VIAL ONE (00:04)
[2019-02-28] MEDS ORDERED: KETAMINE HCL INJ 500 MG/10 ML VIAL IV ONE ×2 (00:10→00:12)
--- NOTE | 2019-02-28 00:15 | ER Document Report ---
ED Respiratory Problem - General TRAVEL OUTSIDE OF THE [place] IN LAST 30 DAYS: No <ALLA LO - Last Filed: 02/28/19 06:36> <JONES AGUIRRE - Last Filed: 02/28/19 23:09> - General Chief Complaint: Respiratory Distress Stated Complaint: TROUBLE BREATHING Time Seen by Provider: 02/27/19 23:57 Notes: Patient is a 63-year-old female that comes to the emergency department for chief complaint of respiratory distress. She has a history of COPD, on 3 L nasal cannula at all times, EMS states that she was approximately 85% on 5 L in respiratory distress when they arrived. She received Solu-Medrol and 25 mg, 2 g of magnesium, and 2 duo nebs in route. When she arrived patient repeatedly ordered "pain", and gestured to her right side. She would not answer any questions otherwise initially. History is extremely limited because patient is in respiratory distress. (ALLA LO) - Related Data Allergies/Adverse Reactions: clindamycin [Clindamycin] Allergy (Severe, Verified 02/13/17 09:05) "Throat Swells Shut" Past Medical History - General Information source: Emergency Med Personnel Cannot obtain history due to: Altered mental status - Social History Smoking Status: Former Smoker Frequency of alcohol use: None Drug Abuse: None Lives with: Family Family History: CAD, Hypertension - Past Medical History Cardiac Medical History: Reports: Hx Hypercholesterolemia, Hx Hypertension Pulmonary Medical History: Reports: Hx Asthma, Hx COPD Denies: Hx Intubation, Hx Tuberculosis Renal/ Medical History: Denies: Hx Peritoneal Dialysis GI Medical History: Reports: Hx Gastroesophageal Reflux Disease Infectious Medical History: Denies: Hx HIV Past Surgical History: Reports: Hx Appendectomy, Hx Hysterectomy - Immunizations Hx Diphtheria, Pertussis, Tetanus Vaccination: Yes Hx Pneumococcal Vaccination: 12/22/08 <ALLA LO - Last Filed: 02/28/19 06:36> Review of Systems - Review of Systems Constitutional: No symptoms reported EENT: No symptoms reported Cardiovascular: See HPI Respiratory: See HPI Gastrointestinal: No symptoms reported Genitourinary: No symptoms reported Female Genitourinary: No symptoms reported Musculoskeletal: No symptoms reported Skin: No symptoms reported Hematologic/Lymphatic: No symptoms reported Neurological/Psychological: See HPI <ALLA LO - Last Filed: 02/28/19 06:36> Physical Exam <ALLA LO - Last Filed: 02/28/19 06:36> - Vital signs Vitals: Resp Pulse Ox 27 H 99 02/27/19 23:50 02/27/19 23:50 - Notes Notes: GENERAL: Obviously distressed, can only speak one word at a time HEAD: Normocephalic, atraumatic. EYES: Pupils equal, round, and reactive to light. Extraocular movements intact. ENT: Oral mucosa moist, tongue midline. Oropharynx unremarkable. Airway patent. NECK: Full range of motion. Supple. Trachea midline. LUNGS: Severe respiratory distress with very labored breathing, retractions, tachypnea.. Decreased breath sounds throughout. HEART: Tachycardia with normal rhythm. No murmur ABDOMEN: Soft, non-tender. Non-distended. GENITOURINARY: Deferred EXTREMITIES: Moves all 4 extremities spontaneously. No edema, normal radial and dorsalis pedis pulses bilaterally. No cyanosis. BACK: no cervical, thoracic, lumbar midline tenderness. No saddle anesthesia, normal distal neurovascular exam. NEUROLOGICAL: Somewhat somnolent and confused SKIN: Diaphoretic (ALLA LO) Course - Laboratory Result Diagrams: 02/28/19 00:00 02/28/19 00:00 <ALAL LO - Last Filed: 02/28/19 06:36> - Laboratory Result Diagrams: 02/28/19 05:50 02/28/19 05:50 - Diagnostic Test Radiology reviewed: Image reviewed, Reports reviewed <JONES AGUIRRE - Last Filed: 02/28/19 23:09> - Re-evaluation Re-evalutation: 02/28/19 00:14 I have been at patient's bedside continuously since arrival. Patient was immediately transitioned to BiPAP, respiratory rate improved, hypoxia resolved, however patient is confused. She answers the year to be 1975, she became more somnolent after this. Patient is already received 2 DuoNeb's, she was given a third DuoNeb. She already received magnesium and Solu-Medrol. Patient did have a period of time where she was on 5 L nasal cannula and was placed on nonrebreather by EMS. This may have worsened hypercarbia. Dr. Aguirre did come to bedside, x-rays performed at bedside, does not show pneumothorax or obvious abnormality. She recommends ketamine, she was given 5 mg IV ketamine. This seemed to help somewhat, her respiratory rate slowed slightly, her heart rate came down into the 120s to 130s. She remains somewhat confused and with some somnolence. If she does not improve she will be intubated. 02/28/19 00:17 Patient is still drowsy but she correctly answered her location when asked. Te ntatively monitoring. 02/28/19 00:51 Patient has been rechecked in very close intervals. She is now awake, alert, oriented, however she is still somewhat somnolent. Much improved from prior. I do not believe she will need to be intubated. CBC shows mild leukocytosis with no bandemia. Chemistry shows very elevated CO2. ABG shows respiratory acidosis with severe hypercarbia. 02/28/19 Patient much improved now, she is conversational intermittently and maintaining well on the BiPAP. Will discuss with hospitalist for admission. Patient and state agreement with this plan. Discussed with Dr. Solitario, patient will be admitted to telemetry full admission. (ALLA LO) 02/28/19 23:07 Patient was seen and examined as requested by [facility]. Ms. darion Ng is a 63-year-old female with history of COPD who presents with increased work of breathing, respiratory distress. Upon arrival patient is in extremis, agitated, confused. Diminished breath sounds expiratory wheezing in all lung gloria. Upon arrival patient was placed on BiPAP, patient received 2 breathing treatments, Solu-Medrol, magnesium, ketamine. Chest x-ray was reviewed and showed no evidence of pneumothorax, pneumonia. PHYSICAL EXAMINATION: GENERAL: Ill-appearing, extremitas HEAD: Atraumatic, normocephalic. EYES: Pupils equal round extraocular movements intact, conjunctiva are normal. ENT: Nares patent NECK: Normal range of motion LUNGS: Moderate respiratory distress, increased work of breathing, accessory muscle use, hypoxia, tachypnea Musculoskeletal: Normal range of motion NEUROLOGICAL: Agitated, alert, awake PSYCH: Normal mood, normal affect. SKIN: Warm, Dry, normal turgor, no rashes or lesions noted. (JONES AGUIRRE) - Vital Signs Vital signs: Temp Pulse Resp BP Pulse Ox 99.5 F 107 H 12 136/100 H 96 02/28/19 21:50 02/28/19 22:00 02/28/19 22:00 02/28/19 21:32 02/28/19 22:00 - Laboratory Laboratory results interpreted by me: 02/28/19 02/28/19 02/28/19 00:00 00:00 00:00 WBC 11.8 H RDW 14.7 H Seg Neutrophils % 84.1 H Lymphocytes % 7.9 L Absolute Neutrophils 9.9 H Carbonic Acid ABG pH ABG pCO2 ABG pO2 ABG HCO3 ABG Total CO2 ABG O2 Saturation VBG pCO2 98.3 H* VBG HCO3 47.0 H Chloride 89 L Carbon Dioxide 46 H* Creatinine 0.35 L Glucose 134 H 02/28/19 00:40 WBC RDW Seg Neutrophils % Lymphocytes % Absolute Neutrophils Carbonic Acid 2.90 H ABG pH 7.29 L ABG pCO2 96.3 H* ABG pO2 60.5 L ABG HCO3 45.0 H ABG Total CO2 47.9 H ABG O2 Saturation 86.4 L VBG pCO2 VBG HCO3 Chloride Carbon Dioxide Creatinine Glucose Critical Care Note - Critical Care Note Total time excluding time spent on procedures (mins): 40 - Respiratory distress, acute on chronic respiratory failure <ALLA LO - Last Filed: 02/28/19 06:36> - Critical Care Note Comments: Please allow 40 minutes of critical care time for evaluation and management of patient with severe respiratory distress, acute on chronic respiratory failure with hypercarbia and hypoxia. Interventions including DuoNeb's, BiPAP therapy, and ketamine. Time spent performing multiple evaluations and discussing with care options. Time spent reviewing labs, previous records, and adm itting to the hospital. (ALLA LO) Discharge - Discharge Admitting Provider: Altaf (Hospitalist) Unit Admitted: Telemetry <ALLA LO - Last Filed: 02/28/19 06:36> <JONES AGUIRRE - Last Filed: 02/28/19 23:09> - Discharge Clinical Impression: COPD exacerbation, Acute on chronic respiratory failure with hypoxia and hypercapnia Condition: Fair Disposition: ADMITTED INPATIENT
[2019-02-28] MEDS ORDERED: NORMAL SALINE 500 ML IV ONE (00:18)
[2019-02-28 00:21] LABS: ABSOLUTE BASOPHILS # (AUTO) 0.1 10^3/uL (0.0-0.2); ABSOLUTE LYMPHOCYTES (AUTO) 0.9 10^3/uL (0.5-4.7); ABSOLUTE MONOCYTES (AUTO) 0.9 10^3/uL (0.1-1.4); ABSOLUTE NEUT (AUTO) 9.9 10^3/uL (1.7-8.2); BASOPHILS % (AUTO) 0.6 % (0-2); EOSINOPHILS % (AUTO) 0.1 % (0-6); HEMATOCRIT 41.2 % (36.0-47.0); HEMOGLOBIN 13.4 g/dL (12.0-15.5); LYMPHOCYTES % (AUTO) 7.9 % (13-45); MEAN CORPUSCULAR HEMOGLOBIN 29.8 pg (27.0-33.4); MEAN CORPUSCULAR HGB CONC 32.4 g/dL (32.0-36.0); MEAN CORPUSCULAR VOLUME 92 fl (80-97); MONOCYTES % (AUTO) 7.3 % (3-13); PLATELET COUNT 166 10^3/uL (150-450); RED BLOOD COUNT 4.49 10^6/uL (3.72-5.28); RED CELL DISTRIBUTION WIDTH 14.7 % (11.5-14.0); SEGMENTED NEUTROPHILS % (AUTO) 84.1 % (42-78); TOTAL CELLS COUNTED % (AUTO) 100 %; WHITE BLOOD COUNT 11.8 10^3/uL (4.0-10.5)
[2019-02-28] MEDS ORDERED: ETOMIDATE INJ/PF 20 MG/10 ML SDV IV ONE (00:26)
[2019-02-28 00:28] LABS: VENOUS BLOOD BASE EXCESS 15.2 mmol/L; VENOUS BLOOD PH 7.3 (7.30-7.42)
[2019-02-28 00:32] LABS: VENOUS BLOOD PCO2 98.3 mmHg (35-63)
--- NOTE | 2019-02-28 00:35 | RADIOLOGY REPORT (SQ) ---
CLINICAL HISTORY: difficulty breathing COMPARISON: None. TECHNIQUE: XR CHEST 1 VIEW 02/27/2019 11:58 PM CDT FINDINGS: Cardiac silhouette is normal in size. Lungs are hyperinflated. There is no focal consolidation. There is no pleural effusion. There is no pneumothorax. There are no acute osseous findings. IMPRESSION: Emphysema without pneumonia.
[2019-02-28 00:57] LABS: ARTERIAL BLOOD BASE EXCESS 13.2 mmol/L; ARTERIAL BLOOD O2 SATURATION 86.4 % (94-98); ARTERIAL BLOOD PH 7.29 (7.35-7.45); ARTERIAL BLOOD PO2 60.5 mmHg (80-100); ARTERIAL BLOOD TOTAL CO2 47.9 mmol/L (21-25)
[2019-02-28 01:06] LABS: ARTERIAL BLOOD FIO2 40%
[2019-02-28 01:07] LABS: ARTERIAL BLOOD PCO2 96.3 mmHg (35-45)
[2019-02-28 01:12] LABS: ALANINE AMINOTRANSFERASE 28 U/L (9-52); ALBUMIN 3.7 g/dL (3.5-5.0); ALKALINE PHOSPHATASE 86 U/L (38-126); ASPARTATE AMINO TRANSFERASE 28 U/L (14-36); BILIRUBIN,DIRECT 0.3 mg/dL (0.0-0.4); BILIRUBIN,TOTAL 0.6 mg/dL (0.2-1.3); BLOOD UREA NITROGEN 18 mg/dL (7-20); CALCIUM 8.9 mg/dL (8.4-10.2); CHLORIDE 89 mmol/L (98-107); GLUCOSE 134 mg/dL (75-110); POTASSIUM 3.8 mmol/L (3.6-5.0); SODIUM 140.2 mmol/L (137-145); TOTAL PROTEIN 6.6 g/dL (6.3-8.2)
[2019-02-28 01:30] LABS: ANION GAP 5 (5-19)
[2019-02-28] MEDS ORDERED: IPRATROPIUM/ALBUTEROL 0.5-2.5 MG/3 ML AMPUL NEB PRN (01:58)
[2019-02-28] MEDS ORDERED: ACETAMINOPHEN 325 MG TABLET PO PRN (01:58)
[2019-02-28 02:02] LABS: CARBON DIOXIDE 46 mmol/L (22-30)
[2019-02-28] MEDS ORDERED: DILTIAZEM HCL 60 MG TABLET PO ONE (02:30)
[2019-02-28] MEDS: IPRATROPIUM/ALBUTEROL 0.5-2.5 MG/3 ML AMPUL NEB SCH ×4 (02:56→20:29)
[2019-02-28] MEDS: HEPARIN SOD (PORCINE) 5,000 UNIT/ML 1 ML SYRINGE SUBCUT SCH ×3 (05:30→21:33)
[2019-02-28] MEDS: DILTIAZEM HCL 30 MG TABLET PO SCH ×2 (05:30→21:09)
[2019-02-28] MEDS: LEVOFLOXACIN 750 MG/D5W RTU 750 MG/150 ML RTUPB IV SCH (05:31)
[2019-02-28] MEDS ORDERED: CHLORPHENIRAMINE MALEATE 4 MG TABLET ONE (05:33)
[2019-02-28] MEDS: CHLORPHENIRAMINE MALEATE 4 MG TABLET PO SCH ×2 (05:39→21:09)
--- NOTE | 2019-02-28 06:05 | PDOC H&P ---
History of Present Illness Admission Date/PCP: 02/28/19 02:24 LINDA SANDERSON DO Patient complains of: Shortness of breath History of Present Illness: NOE CLAROS is a 63 year old female with a past medical history of home oxygen dependent COPD and generalized debility. She presents after found by EMS with altered mental status and oxygen saturations in the 40s she received supplemental oxygen, BiPAP and steroids on route. In the emergency department she is found to have lethargy and ABG reveals hypercapnic respiratory failure. She is referred to the hospitalist for admission. Patient denies recent change in outpatient medication regiment. She denies chest pain nausea vomiting but complains of rhinorrhea. Past Medical History Cardiac Medical History: Reports: Hyperlipidema, Hypertension Pulmonary Medical History: Reports: Asthma, Chronic Obstructive Pulmonary Disease (COPD) Denies: Intubation, Tuberculosis GI Medical History: Reports: Gastroesophageal Reflux Disease Psychiatric Medical History: Denies: Depression Hematology: Denies: Sickle Cell Disease Infectious Medical History: Denies: HIV Past Surgical History Past Surgical History: Reports: Appendectomy, Hysterectomy Social History Information Source: Patient, Emergency Med Personnel, [facility] Records Smoking Status: Former Smoker Frequency of Alcohol Use: None Hx Recreational Drug Use: No Drugs: None Hx Prescription Drug Abuse: No - Advance Directive Resuscitation Status: Full Code Family History Family History: CAD, Hypertension Parental Family History Reviewed: Yes Children Family History Reviewed: Yes Sibling(s) Family History Reviewed.: Yes Medication/Allergy Home Medications: Acetaminophen [Tylenol 325 mg Tablet] 650 mg PO Q12HP PRN 09/19/18 Atorvastatin Calcium [Lipitor 20 mg Tablet] 20 mg PO QHS 09/19/18 Calcium Carbonate/Vitamin D3 [Oyster Shell 500-Vit D3 200 Tb] 1 tab PO DAILY 09/19/18 Cholecalciferol (Vitamin D3) [Vitamin D3 1000 Unit Tablet] 1,000 unit PO DAILY 09/19/18 Fluticasone/Salmeterol [Advair 250-50 Diskus 14 Dose/Diskus] 1 puff IH Q12 09/19/18 Multivitamin [Tab-A-Lefty (Multiple Vitamin) Tablet] 1 tab PO DAILY 09/19/18 Omeprazole 40 mg PO DAILY 09/19/18 Amox Tr/Potassium Clavulanate [Augmentin 875-125 mg Tablet] 1 tab PO BID 7 Days #14 tablet 09/27/18 Guaifenesin [Mucinex Sr 600 mg Tablet.sa] 1,200 mg PO Q12 tablet.sa 09/27/18 Ipratropium/Albuterol Sulfate [Duoneb 3 ml Ampul] 3 ml NEB RTQ6 60 Days #120 vial.neb 09/27/18 Levalbuterol HCl [Xopenex Neb 1.25 mg/3 ml Ampul] 1.25 mg NEB RTQ4HP PRN 30 Days #60 vial.neb 09/27/18 Melatonin [Melatonin 5 mg Tablet] 5 mg PO QHS tablet 09/27/18 Montelukast Sodium [Singulair 10 mg Tablet] 10 mg PO QHS 30 Days #30 tablet 09/27/18 Prednisone [Deltasone 10 mg Tablet] 10 mg PO ASDIR PRN #21 tablet 09/27/18 Allergies/Adverse Reactions: clindamycin [Clindamycin] Allergy (Severe, Verified 02/13/17 09:05) "Throat Swells Shut" Review of Systems Constitutional: ABSENT: chills, fever(s), headache(s), weight gain, weight loss Eyes: ABSENT: visual disturbances Ears: ABSENT: hearing changes Cardiovascular: ABSENT: chest pain, dyspnea on exertion, edema, orthropnea, pa lpitations Respiratory: ABSENT: cough, hemoptysis Gastrointestinal: ABSENT: abdominal pain, constipation, diarrhea, hematemesis, hematochezia, nausea, vomiting Genitourinary: ABSENT: dysuria, hematuria Musculoskeletal: ABSENT: joint swelling Integumentary: ABSENT: rash, wounds Neurological: ABSENT: abnormal gait, abnormal speech, confusion, dizziness, focal weakness, syncope Psychiatric: ABSENT: anxiety, depression, homidical ideation, suicidal ideation Endocrine: ABSENT: cold intolerance, heat intolerance, polydipsia, polyuria Hematologic/Lymphatic: ABSENT: easy bleeding, easy bruising Physical Exam Vital Signs: Temp Pulse Resp BP Pulse Ox 98.1 F 114 H 23 H 132/86 H 97 02/28/19 02:46 02/28/19 03:47 02/28/19 03:45 02/28/19 02:46 02/28/19 03:45 Intake & Output 02/26/19 02/27/19 02/28/19 11:59 11:59 11:59 Intake Total 500 Balance 500 Weight 51.8 kg General appearance: PRESENT: cooperative, mild distress, thin, well-developed. ABSENT: well-nourished Head exam: PRESENT: atraumatic, normocephalic Eye exam: PRESENT: conjunctiva pink, EOMI, PERRLA. ABSENT: scleral icterus Ear exam: PRESENT: normal external ear exam Mouth exam: PRESENT: moist, tongue midline Neck exam: ABSENT: carotid bruit, JVD, lymphadenopathy, thyromegaly Respiratory exam: PRESENT: accessory muscle use, decreased breath sounds, prolonged expiratory phas, retraction, symmetrical Cardiovascular exam: PRESENT: RRR, tachycardia. ABSENT: diastolic murmur, rubs, systolic murmur Pulses: PRESENT: normal dorsalis pedis pul Vascular exam: PRESENT: normal capillary refill GI/Abdominal exam: PRESENT: normal bowel sounds, soft. ABSENT: distended, guarding, mass, organolmegaly, rebound, tenderness Rectal exam: PRESENT: deferred Extremities exam: PRESENT: full ROM. ABSENT: calf tenderness, clubbing, pedal edema Neurological exam: PRESENT: altered, awake, oriented to person, oriented to place, CN II-XII grossly intact. ABSENT: motor sensory deficit Psychiatric exam: PRESENT: appropriate affect, normal mood. ABSENT: homicidal ideation, suicidal ideation Skin exam: PRESENT: dry, intact, warm. ABSENT: cyanosis, rash Results Laboratory Results: 02/28/19 00:00 02/28/19 00:00 02/28/19 02/28/19 02/28/19 00:00 00:00 00:00 WBC 11.8 H RBC 4.49 Hgb 13.4 Hct 41.2 MCV 92 MCH 29.8 MCHC 32.4 RDW 14.7 H Plt Count 166 Seg Neutrophils % 84.1 H Lymphocytes % 7.9 L Monocytes % 7.3 Eosinophils % 0.1 Basophils % 0.6 Absolute Neutrophils 9.9 H Absolute Lymphocytes 0.9 Absolute Monocytes 0.9 Absolute Eosinophils 0.0 Absolute Basophils 0.1 Carbonic Acid HCO3/H2CO3 Ratio ABG pH ABG pCO2 ABG pO2 ABG HCO3 ABG O2 Saturation ABG Base Excess VBG pH 7.30 VBG pCO2 98.3 H* VBG HCO3 47.0 H VBG Base Excess 15.2 FiO2 Sodium 140.2 Potassium 3.8 Chloride 89 L Carbon Dioxide 46 H* Anion Gap 5 BUN 18 Creatinine 0.35 L Est GFR ( Amer) > 60 Est GFR (Non-Af Amer) > 60 Glucose 134 H Calcium 8.9 Total Bilirubin 0.6 AST 28 ALT 28 Alkaline Phosphatase 86 Total Protein 6.6 Albumin 3.7 02/28/19 00:40 WBC RBC Hgb Hct MCV MCH MCHC RDW Plt Count Seg Neutrophils % Lymphocytes % Monocytes % Eosinophils % Basophils % Absolute Neutrophils Absolute Lymphocytes Absolute Monocytes Absolute Eosinophils Absolute Basophils Carbonic Acid 2.90 H HCO3/H2CO3 Ratio 15:1 ABG pH 7.29 L ABG pCO2 96.3 H* ABG pO2 60.5 L ABG HCO3 45.0 H ABG O2 Saturation 86.4 L ABG Base Excess 13.2 VBG pH VBG pCO2 VBG HCO3 VBG Base Excess FiO2 40% Sodium Potassium Chloride Carbon Dioxide Anion Gap BUN Creatinine Est GFR ( Amer) Est GFR (Non-Af Amer) Glucose Calcium Total Bilirubin AST ALT Alkaline Phosphatase Total Protein Albumin 02/28/19 02/28/19 00:00 00:00 Troponin I < 0.012 NT-Pro-B Natriuret Pep 54 Impressions: Chest X-Ray 02/27/19 23:58 IMPRESSION: Emphysema without pneumonia. Assessment and Plan - Diagnosis (1) Acute on chronic respiratory failure with hypoxia and hypercapnia Is this a current diagnosis for this admission?: Yes Plan: Likely secondary to decompensated allergic sinusitis with postnasal drip and acute bronchitis. Continue supplemental oxygen, BiPAP, incentive spirometry, flutter valve, prednisone and empiric antibiotics. (2) Allergic sinusitis Is this a current diagnosis for this admission?: Yes Plan: Flonase and chlorpheniramine. (3) Bronchitis Is this a current diagnosis for this admission?: Yes Plan: Please see #1 (4) Tachycardia Is this a current diagnosis for this admission?: Yes Plan: Concern for evolving to A. fib. Diltiazem trial initiated. - Time Time Spent with patient: 35 or more minutes - Inpatient Certification Medical Necessity: Need Close Monitoring Due to Risk of Patient Decompensation
[2019-02-28 06:31] LABS: ARTERIAL BLOOD H2CO3 3.43 mmol/L (1.05-1.35); ARTERIAL BLOOD HCO3 49.7 mmol/L (20-24); ARTERIAL BLOOD O2 SATURATION 96.5 % (94-98); ARTERIAL BLOOD PH 7.26 (7.35-7.45); ARTERIAL BLOOD PO2 106.3 mmHg (80-100); ARTERIAL BLOOD TOTAL CO2 53.2 mmol/L (21-25)
[2019-02-28 06:34] LABS: HEMOGLOBIN 12.8 g/dL (12.0-15.5); MEAN CORPUSCULAR HEMOGLOBIN 30.1 pg (27.0-33.4); MEAN CORPUSCULAR HGB CONC 32.8 g/dL (32.0-36.0); MEAN CORPUSCULAR VOLUME 92 fl (80-97); PLATELET COUNT 145 10^3/uL (150-450); RED BLOOD COUNT 4.25 10^6/uL (3.72-5.28); RED CELL DISTRIBUTION WIDTH 14.5 % (11.5-14.0); WHITE BLOOD COUNT 13.5 10^3/uL (4.0-10.5)
[2019-02-28 06:34] LABS: ARTERIAL BLOOD FIO2 45%
[2019-02-28 06:35] LABS: ARTERIAL BLOOD PCO2 114.1 mmHg (35-45)
[2019-02-28 06:55] LABS: ALANINE AMINOTRANSFERASE 29 U/L (9-52); ALBUMIN 3.3 g/dL (3.5-5.0); ALKALINE PHOSPHATASE 76 U/L (38-126); ASPARTATE AMINO TRANSFERASE 26 U/L (14-36); BILIRUBIN,DIRECT 0.2 mg/dL (0.0-0.4); BILIRUBIN,TOTAL 0.5 mg/dL (0.2-1.3); BLOOD UREA NITROGEN 16 mg/dL (7-20); CALCIUM 8.5 mg/dL (8.4-10.2); CHLORIDE 90 mmol/L (98-107); GLUCOSE 158 mg/dL (75-110); SODIUM 140.7 mmol/L (137-145); TOTAL PROTEIN 6.2 g/dL (6.3-8.2)
[2019-02-28 07:16] LABS: ABSOLUTE MONOCYTES # (MANUAL) 0.1 10^3/uL (0.1-1.4); ABSOLUTE NEUTROPHILS# (MANUAL) 13.2 10^3/uL (1.7-8.2); BAND NEUTROPHILS % (MANUAL) 6 % (3-5); BASOPHILS % (MANUAL) 1 % (0-2); EOSINOPHILS % (MANUAL) 0 % (0-6); LYMPHOCYTES % (MANUAL) 0 % (13-45); MONOCYTES % (MANUAL) 1 % (3-13); SEGMENTED NEUTROPHILS % (MAN) 92 % (42-78); TOTAL CELLS COUNTED 100
[2019-02-28 07:17] LABS: ANISOCYTOSIS SLIGHT; PLATELET COMMENT DECREASED
[2019-02-28 07:18] LABS: ANION GAP 7 (5-19)
[2019-02-28 07:21] LABS: ARTERIAL BLOOD BASE EXCESS 12.9 mmol/L; ARTERIAL BLOOD H2CO3 2.84 mmol/L (1.05-1.35); ARTERIAL BLOOD HCO3 43.9 mmol/L (20-24); ARTERIAL BLOOD O2 SATURATION 98.1 % (94-98); ARTERIAL BLOOD PH 7.29 (7.35-7.45); ARTERIAL BLOOD PO2 131.7 mmHg (80-100); ARTERIAL BLOOD TOTAL CO2 46.8 mmol/L (21-25)
[2019-02-28 07:21] LABS: CARBON DIOXIDE 44 mmol/L (22-30)
[2019-02-28 07:23] LABS: ARTERIAL BLOOD FIO2 45%
[2019-02-28 07:24] LABS: ARTERIAL BLOOD PCO2 94.5 mmHg (35-45)
[2019-02-28] MEDS ORDERED: FAMOTIDINE 20 MG TABLET PO SCH (10:00)
[2019-02-28] MEDS ORDERED: PREDNISONE 20 MG TABLET PO SCH (10:00)
--- NOTE | 2019-02-28 10:35 | EKG REPORT ---
SEVERITY:- ABNORMAL ECG - SINUS TACHYCARDIA RIGHT AXIS DEVIATION CONSIDER LEFT VENTRICULAR HYPERTROPHY RA ENLARGEMENT : Confirmed by: Margy Mark 28-Feb-2019 10:34:40
[2019-02-28] MEDS ORDERED: PHARMACY COMMUNICATION ORDER MC NR (11:30)
[2019-02-28 11:38] LABS: ARTERIAL BLOOD BASE EXCESS 13.6 mmol/L; ARTERIAL BLOOD H2CO3 2.63 mmol/L (1.05-1.35); ARTERIAL BLOOD O2 SATURATION 95.6 % (94-98); ARTERIAL BLOOD PH 7.32 (7.35-7.45); ARTERIAL BLOOD PO2 89.3 mmHg (80-100); ARTERIAL BLOOD TOTAL CO2 46.6 mmol/L (21-25)
[2019-02-28 11:39] LABS: ARTERIAL BLOOD FIO2 40%
[2019-02-28 11:40] LABS: ARTERIAL BLOOD PCO2 87.3 mmHg (35-45)
[2019-02-28] MEDS ORDERED: ACETAMINOPHEN 325 MG TABLET NG PRN (12:30)
[2019-02-28] MEDS ORDERED: PROPOFOL INJ 200 MG/20 ML VIAL IV ONE (12:38)
[2019-02-28] MEDS ORDERED: DEXTROSE 5%-WATER 250 ML with NOREPINEPHRINE BITARTRATE 4 MG IV PRN ×2 (12:45)
[2019-02-28] MEDS: PROPOFOL 1,000 MG/100 ML INFUS..BTL IV PRN ×2 (13:07→20:00)
--- NOTE | 2019-02-28 13:19 | PDOC PROGRESS REPORT ---
Subjective Progress Note for:: 02/28/19 Subjective:: The patient is a 63-year-old female with a past medical history of emphysema; home O2 dependent with trilogy, hypertension, hyperlipidemia, and GERD who was admitted by the CARDRO[facility] ATTENDANT early this morning for acute respiratory failure with hypercapnia and hypoxia secondary to COPD exacerbation. Patient was seen on morning rounds with Dr. Valentine at bedside. She was found sitting up to the edge of the bed in tripod position; clear respiratory distress that improved minimally with adjustment from BiPAP to AVAPS settings. The patient initially stated that she wanted to be a DNI, however,upon follow up visit 1 hour later, the patient expressed that she wished for aggressive interventions, including intubation, as necessary to treat her exacerbation. Patient was subsequently upgraded to ICU where she was met by the anesthesia team and successfully intubated and placed on ventilator support. Reason For Visit: COPD EXACERBATION,ACUTE BRONCHITIS Physical Exam Vital Signs: Temp Pulse Resp BP Pulse Ox 97.5 F 127 H 25 H 107/78 99 02/28/19 07:44 02/28/19 08:07 02/28/19 08:07 02/28/19 07:44 02/28/19 08:07 Intake & Output 02/27/19 02/28/19 03/01/19 06:59 06:59 06:59 Intake Total 500 Balance 500 Weight 48.1 kg General appearance: PRESENT: no acute distress, cooperative, severe distress, thin, well-developed Head exam: PRESENT: atraumatic, normocephalic Eye exam: PRESENT: conjunctiva pink, EOMI, PERRLA. ABSENT: scleral icterus Ear exam: PRESENT: normal external ear exam Mouth exam: PRESENT: dry mucosa, tongue midline Neck exam: ABSENT: carotid bruit, JVD, lymphadenopathy, thyromegaly Respiratory exam: PRESENT: accessory muscle use, decreased breath sounds, prolonged expiratory phas, retraction, rhonchi, tachypnea, other - tripoding; AVAPS support. ABSENT: rales, wheezes Cardiovascular exam: PRESENT: RRR, +S1, +S2. ABSENT: diastolic murmur, rubs, systolic murmur Pulses: PRESENT: normal dorsalis pedis pul Vascular exam: PRESENT: normal capillary refill GI/Abdominal exam: PRESENT: normal bowel sounds, soft. ABSENT: distended, guard ing, mass, organolmegaly, rebound, tenderness Rectal exam: PRESENT: deferred Extremities exam: PRESENT: full ROM. ABSENT: calf tenderness, clubbing, pedal edema Neurological exam: PRESENT: alert, awake, oriented to person, oriented to place, oriented to time, oriented to situation, CN II-XII grossly intact. ABSENT: motor sensory deficit Psychiatric exam: PRESENT: appropriate affect, normal mood. ABSENT: homicidal ideation, suicidal ideation Skin exam: PRESENT: dry, intact, warm. ABSENT: cyanosis, rash Results Laboratory Results: 02/28/19 05:50 02/28/19 05:50 02/28/19 02/28/19 02/28/19 00:00 00:00 00:00 WBC 11.8 H RBC 4.49 Hgb 13.4 Hct 41.2 MCV 92 MCH 29.8 MCHC 32.4 RDW 14.7 H Plt Count 166 Seg Neutrophils % 84.1 H Lymphocytes % 7.9 L Monocytes % 7.3 Eosinophils % 0.1 Basophils % 0.6 Absolute Neutrophils 9.9 H Absolute Lymphocytes 0.9 Absolute Monocytes 0.9 Absolute Eosinophils 0.0 Absolute Basophils 0.1 Carbonic Acid HCO3/H2CO3 Ratio ABG pH ABG pCO2 ABG pO2 ABG HCO3 ABG O2 Saturation ABG Base Excess VBG pH 7.30 VBG pCO2 98.3 H* VBG HCO3 47.0 H VBG Base Excess 15.2 FiO2 Sodium 140.2 Potassium 3.8 Chloride 89 L Carbon Dioxide 46 H* Anion Gap 5 BUN 18 Creatinine 0.35 L Est GFR ( Amer) > 60 Est GFR (Non-Af Amer) > 60 Glucose 134 H Calcium 8.9 Total Bilirubin 0.6 AST 28 ALT 28 Alkaline Phosphatase 86 Total Protein 6.6 Albumin 3.7 02/28/19 02/28/19 02/28/19 00:40 05:50 05:50 WBC 13.5 H RBC 4.25 Hgb 12.8 Hct 39.0 MCV 92 MCH 30.1 MCHC 32.8 RDW 14.5 H Plt Count 145 L Seg Neutrophils % Not Reportable Lymphocytes % Not Reportable Monocytes % Not Reportable Eosinophils % Not Reportable Basophils % Not Reportable Absolute Neutrophils Not Reportable Absolute Lymphocytes Not Reportable Absolute Monocytes Not Reportable Absolute Eosinophils Not Reportable Absolute Basophils Not Reportable Carbonic Acid 2.90 H HCO3/H2CO3 Ratio 15:1 ABG pH 7.29 L ABG pCO2 96.3 H* ABG pO2 60.5 L ABG HCO3 45.0 H ABG O2 Saturation 86.4 L ABG Base Excess 13.2 VBG pH VBG pCO2 VBG HCO3 VBG Base Excess FiO2 40% Sodium 140.7 Potassium 4.0 Chloride 90 L Carbon Dioxide 44 H* Anion Gap 7 BUN 16 Creatinine 0.37 L Est GFR ( Amer) > 60 Est GFR (Non-Af Amer) > 60 Glucose 158 H Calcium 8.5 Total Bilirubin 0.5 AST 26 ALT 29 Alkaline Phosphatase 76 Total Protein 6.2 L Albumin 3.3 L 02/28/19 02/28/19 06:10 06:54 WBC RBC Hgb Hct MCV MCH MCHC RDW Plt Count Seg Neutrophils % Lymphocytes % Monocytes % Eosinophils % Basophils % Absolute Neutrophils Absolute Lymphocytes Absolute Monocytes Absolute Eosinophils Absolute Basophils Carbonic Acid 3.43 H 2.84 H HCO3/H2CO3 Ratio 14:1 15:1 ABG pH 7.26 L 7.29 L ABG pCO2 114.1 H* 94.5 H* ABG pO2 106.3 H 131.7 H ABG HCO3 49.7 H 43.9 H ABG O2 Saturation 96.5 98.1 H ABG Base Excess 17.0 12.9 VBG pH VBG pCO2 VBG HCO3 VBG Base Excess FiO2 45% 45% Sodium Potassium Chloride Carbon Dioxide Anion Gap BUN Creatinine Est GFR ( Amer) Est GFR (Non-Af Amer) Glucose Calcium Total Bilirubin AST ALT Alkaline Phosphatase Total Protein Albumin 02/28/19 02/28/19 00:00 00:00 Troponin I < 0.012 NT-Pro-B Natriuret Pep 54 Impressions: Chest X-Ray 02/27/19 23:58 IMPRESSION: Emphysema without pneumonia. Assessment and Plan - Diagnosis (1) Acute on chronic respiratory failure with hypoxia and hypercapnia Is this a current diagnosis for this admission?: Yes Plan: Blood and sputum cultures pending. Patient is upgraded to ICU. She is urgently intubated and mechanically ventilated. Dr. Valentine is consulted for COPD exacerbation and ventilator management. Continue scheduled and as needed nebulizer treatments. Empiric Levaquin for bronchitis; will adjust as cultures result. Increase steroid therapy to IV Solu-medrol 40 mg q 8 hours. (2) COPD exacerbation Is this a current diagnosis for this admission?: Yes Plan: Evaluation and management as above. (3) Allergic sinusitis Is this a current diagnosis for this admission?: Yes Plan: Flonase and chlorpheniramine. (4) Protein calorie malnutrition Is this a current diagnosis for this admission?: Yes Plan: Currently intubated. adult remedial education instructor is consulted for nutrition recommendations. - Time Time Spent with patient: 35 or more minutes Total Critical Time (Minutes): 45 Medications reviewed and adjusted accordingly: Yes
--- NOTE | 2019-02-28 13:24 | RADIOLOGY REPORT (SQ) ---
EXAM DESCRIPTION: CHEST SINGLE VIEW COMPLETED DATE/TIME: 02/28/2019 1:10 pm REASON FOR STUDY: post intubation COMPARISON: Earlier the same day. NUMBER OF VIEWS: One view. TECHNIQUE: Single frontal radiographic image of the chest acquired. LIMITATIONS: None. FINDINGS: LUNGS AND PLEURA: Stable appearance. MEDIASTINUM AND HILAR STRUCTURES: Stable heart size and mediastinal structures. HEART AND VASCULAR STRUCTURES: Stable appearance. SUPPORT DEVICES: Endotracheal tube and NG tube have been added. Both are in satisfactory position. NG tube tip is well below the GE junction. BONES: No acute findings. OTHER: No other significant finding. IMPRESSION: Stable chest. Support lines and tubes have been added and appear to be in satisfactory position. TECHNICAL DOCUMENTATION: JOB ID: [id number] [employer]- All Rights Reserved Reading location - IP/workstation name: [email or web address]
[2019-02-28] MEDS: HYDRALAZINE HCL INJ/PF 20 MG/1 ML SDV IV PRN (14:29)
[2019-02-28] MEDS: METHYLPREDNISOLONE INJ 40 MG/1 ML SDV IV SCH ×2 (14:29→21:33)
[2019-02-28 14:35] LABS: ARTERIAL BLOOD BASE EXCESS 13.8 mmol/L; ARTERIAL BLOOD H2CO3 1.71 mmol/L (1.05-1.35); ARTERIAL BLOOD O2 SATURATION 97.1 % (94-98); ARTERIAL BLOOD PCO2 56.8 mmHg (35-45); ARTERIAL BLOOD PH 7.47 (7.35-7.45); ARTERIAL BLOOD PO2 89.3 mmHg (80-100); ARTERIAL BLOOD TOTAL CO2 41.8 mmol/L (21-25)
[2019-02-28 14:36] LABS: ARTERIAL BLOOD FIO2 35%
--- NOTE | 2019-02-28 14:39 | PDOC CONSULTATION ---
Consultation Consult Date: 02/28/19 Attending physician:: GALE GOINS Provider Consulted: NORIS ARREDONDO Consult reason:: Acute/Chronic respiratory failure History of Present Illness Admission Date/PCP: 02/28/19 02:24 LINDA SANDERSON DO History of Present Illness: NOE CLAROS is a 63 year old female, known to [facility] of multiple admissions due to exacerbations of COPD has multiple office visits. Apparently she was increasingly short of breath over the last 36 hours for coronary finally to submit to coming emergency room where he had hypoxia as well as hypercapnia and was subsequently admitted to the floor. He stated that she did not want to be intubated as her condition deteriorated she reversed that situation upon reversal the situation about intubation she was taken to the ICU where she was intubated and sedated she had denied hemoptysis admits to a cough productive of yellow phlegm for several days. She has a greater than 50-pack- year history but admits to not smoking for the last 5 years Past Medical History Cardiac Medical History: Reports: Hyperlipidema, Hypertension Pulmonary Medical History: Reports: Asthma, Chronic Obstructive Pulmonary Disease (COPD), Respiratory Failure Denies: Intubation, Tuberculosis EENT Medical History: Denies: Cataracts Neurological Medical History: Denies: Hemorrhagic CVA, Ischemic CVA, Multiple Sclerosis Endocrine Medical History: Denies: Hypothyroidism, Obesity Renal/ Medical History: Denies: Nephrolithiasis Malignancy Medical History: Denies: None, Bone Cancer, Brain Cancer, Breast Cancer, Cervical Cancer, Colorectal Cancer, Leukemia, Liver Cancer, Lung Cancer, Lymphoma, Ovarian Cancer, Pancreatic Cancer, Renal (Kidney) Cancer, Skin Cancer, Other GI Medical History: Reports: Gastroesophageal Reflux Disease Musculoskeltal Medical History: Denies: Fibromyalgia, Gout Psychiatric Medical History: Denies: Depression Traumatic Medical History: Denies: Gunshot Wound, Stab Wound Hematology: Denies: Sickle Cell Disease Infectious Medical History: Denies: Clostridium Difficile, HIV Past Surgical History Past Surgical History: Reports: Appendectomy, Hysterectomy Social History Information Source: [facility] Records Lives with: Family Smoking Status: Former Smoker Cigars Per Day: 2 Number of Years Smokin Last Time Smoked: 4 yrs Passive smoke exposure as: Both Frequency of Alcohol Use: None Hx Recreational Drug Use: No Drugs: None Hx Prescription Drug Abuse: No Do you have pets?: Yes Have you had any respiratory illnesses as a child?: No Have you been exposed to any sick contacts recently?: No Have you had any recent respiratory illnesses?: Yes Have you travelled outside of [place] in the past 12 months?: No - Advance Directive Resuscitation Status: Full Code Family History Family History: CAD, Hypertension Parental Family History Reviewed: Yes Children Family History Reviewed: Yes Sibling(s) Family History Reviewed.: Yes Medication/Allergy Home Medications: Atorvastatin Calcium [Lipitor 20 mg Tablet] 20 mg PO QHS 09/19/18 Calcium Carbonate/Vitamin D3 [Oyster Shell 500-Vit D3 200 Tb] 1 tab PO DAILY 09/19/18 Cholecalciferol (Vitamin D3) [Vitamin D3 1000 Unit Tablet] 1,000 unit PO DAILY 09/19/18 Fluticasone/Salmeterol [Advair 250-50 Diskus 14 Dose/Diskus] 1 puff IH Q12 09/19/18 Multivitamin [Tab-A-Lefty (Multiple Vitamin) Tablet] 1 tab PO DAILY 09/19/18 Omeprazole 40 mg PO DAILY 09/19/18 Prednisone [Deltasone 5 mg Tablet] 15 mg PO DAILY 02/28/19 Tiotropium Ambler [Spiriva Respimat] 1 puff IH DAILY 02/28/19 Allergies/Adverse Reactions: clindamycin [Clindamycin] Allergy (Severe, Verified 02/13/17 09:05) "Throat Swells Shut" Review of Systems Constitutional: PRESENT: anorexia, fatigue, weakness Eyes: ABSENT: visual disturbances Ears: ABSENT: hearing changes Nose, Mouth, and Throat: ABSENT: sore throat, vertigo Cardiovascular: PRESENT: dyspnea on exertion, orthropnea. ABSENT: edema, palpitations Respiratory: PRESENT: cough, dyspnea, sputum. ABSENT: hemoptysis Gastrointestinal: ABSENT: abdominal pain, bloating, coffee ground emesis, dysphagia, hematemesis, hematochezia, melena Genitourinary: ABSENT: dysuria, hematuria Musculoskeletal: ABSENT: deformity, joint swelling Integumentary: ABSENT: pruritus, rash Neurological: ABSENT: abnormal gait, abnormal movements, abnormal speech, focal weakness, frequent falls, lack of coordination, memory loss Psychiatric: ABSENT: hallucinations, homidical ideation, suicidal ideation Endocrine: ABSENT: cold intolerance, heat intolerance, polydipsia, polyuria Hematologic/Lymphatic: PRESENT: easy bruising Allergic/Immunologic: PRESENT: seasonal rhinorrhea Physical Exam Vital Signs: Temp Pulse Resp BP Pulse Ox 97.9 F 116 H 20 156/114 H 100 02/28/19 13:21 02/28/19 13:47 02/28/19 13:47 02/28/19 13:21 02/28/19 13:47 Intake & Output 02/27/19 02/28/19 03/01/19 06:59 06:59 06:59 Intake Total 500 150 Balance 500 150 Weight 48.1 kg 49.7 kg General appearance: PRESENT: cooperative, disheveled, mild distress, thin, well- developed, well-nourished Head exam: PRESENT: atraumatic, normocephalic Eye exam: PRESENT: conjunctiva pale, EOMI. ABSENT: nystagmus, periorbital swelling, scleral icterus Mouth exam: PRESENT: dry mucosa, neck supple, tongue midline Neck exam: ABSENT: carotid bruit, full ROM, JVD, lymphadenopathy, meningismus, tenderness, thyromegaly, tracheal deviation, tracheostomy, other Respiratory exam: PRESENT: decreased breath sounds, prolonged expiratory phas, rales, rhonchi, tachypnea, wheezes. ABSENT: retraction, unlabored Cardiovascular exam: PRESENT: RRR, +S1, +S2, tachycardia Pulses: PRESENT: normal radial pulses GI/Abdominal exam: PRESENT: soft. ABSENT: mass Extremities exam: ABSENT: calf tenderness, clubbing, joint swelling Musculoskeletal exam: ABSENT: ambulatory, deformity, dislocation Neurological exam: PRESENT: alert, awake Psychiatric exam: PRESENT: appropriate affect Skin exam: PRESENT: dry, warm Results Laboratory Results: 02/28/19 05:50 02/28/19 05:50 02/28/19 02/28/19 02/28/19 00:00 00:00 00:00 WBC 11.8 H RBC 4.49 Hgb 13.4 Hct 41.2 MCV 92 MCH 29.8 MCHC 32.4 RDW 14.7 H Plt Count 166 Seg Neutrophils % 84.1 H Lymphocytes % 7.9 L Monocytes % 7.3 Eosinophils % 0.1 Basophils % 0.6 Absolute Neutrophils 9.9 H Absolute Lymphocytes 0.9 Absolute Monocytes 0.9 Absolute Eosinophils 0.0 Absolute Basophils 0.1 Carbonic Acid HCO3/H2CO3 Ratio ABG pH ABG pCO2 ABG pO2 ABG HCO3 ABG O2 Saturation ABG Base Excess VBG pH 7.30 VBG pCO2 98.3 H* VBG HCO3 47.0 H VBG Base Excess 15.2 FiO2 Sodium 140.2 Potassium 3.8 Chloride 89 L Carbon Dioxide 46 H* Anion Gap 5 BUN 18 Creatinine 0.35 L Est GFR ( Amer) > 60 Est GFR (Non-Af Amer) > 60 Glucose 134 H Calcium 8.9 Total Bilirubin 0.6 AST 28 ALT 28 Alkaline Phosphatase 86 Total Protein 6.6 Albumin 3.7 02/28/19 02/28/19 02/28/19 00:40 05:50 05:50 WBC 13.5 H RBC 4.25 Hgb 12.8 Hct 39.0 MCV 92 MCH 30.1 MCHC 32.8 RDW 14.5 H Plt Count 145 L Seg Neutrophils % Not Reportable Lymphocytes % Not Reportable Monocytes % Not Reportable Eosinophils % Not Reportable Basophils % Not Reportable Absolute Neutrophils Not Reportable Absolute Lymphocytes Not Reportable Absolute Monocytes Not Reportable Absolute Eosinophils Not Reportable Absolute Basophils Not Reportable Carbonic Acid 2.90 H HCO3/H2CO3 Ratio 15:1 ABG pH 7.29 L ABG pCO2 96.3 H* ABG pO2 60.5 L ABG HCO3 45.0 H ABG O2 Saturation 86.4 L ABG Base Excess 13.2 VBG pH VBG pCO2 VBG HCO3 VBG Base Excess FiO2 40% Sodium 140.7 Potassium 4.0 Chloride 90 L Carbon Dioxide 44 H* Anion Gap 7 BUN 16 Creatinine 0.37 L Est GFR ( Amer) > 60 Est GFR (Non-Af Amer) > 60 Glucose 158 H Calcium 8.5 Total Bilirubin 0.5 AST 26 ALT 29 Alkaline Phosphatase 76 Total Protein 6.2 L Albumin 3.3 L 02/28/19 02/28/19 02/28/19 06:10 06:54 11:25 WBC RBC Hgb Hct MCV MCH MCHC RDW Plt Count Seg Neutrophils % Lymphocytes % Monocytes % Eosinophils % Basophils % Absolute Neutrophils Absolute Lymphocytes Absolute Monocytes Absolute Eosinophils Absolute Basophils Carbonic Acid 3.43 H 2.84 H 2.63 H HCO3/H2CO3 Ratio 14:1 15:1 16:1 ABG pH 7.26 L 7.29 L 7.32 L ABG pCO2 114.1 H* 94.5 H* 87.3 H* ABG pO2 106.3 H 131.7 H 89.3 ABG HCO3 49.7 H 43.9 H 44.0 H ABG O2 Saturation 96.5 98.1 H 95.6 ABG Base Excess 17.0 12.9 13.6 VBG pH VBG pCO2 VBG HCO3 VBG Base Excess FiO2 45% 45% 40% Sodium Potassium Chloride Carbon Dioxide Anion Gap BUN Creatinine Est GFR ( Amer) Est GFR (Non-Af Amer) Glucose Calcium Total Bilirubin AST ALT Alkaline Phosphatase Total Protein Albumin 02/28/19 02/28/19 00:00 00:00 Troponin I < 0.012 NT-Pro-B Natriuret Pep 54 Impressions: Chest X-Ray 02/28/19 00:00 IMPRESSION: Stable chest. Support lines and tubes have been added and appear to be in satisfactory position. Assessment & Plan - Diagnosis (1) Acute on chronic respiratory failure with hypoxia and hypercapnia Is this a current diagnosis for this admission?: Yes Plan: Approximate hypercapnic respiratory failure large amount of air trapping is sustained by chest x-ray (2) Emphysema Qualifiers: Emphysema type: centrilobular Qualified Code(s): J43.2 - Centrilobular emphysema Is this a current diagnosis for this admission?: Yes Plan: Long-acting muscarinic agent plus long-acting beta agonist plus rescue albuterol (3) Pulmonary cachexia due to chronic obstructive pulmonary disease Is this a current diagnosis for this admission?: Yes Plan: Enteral feeding plus Beneprotein 3 times a day - Time Total Critical Time (Minutes): 75
[2019-02-28] MEDS ORDERED: CHLORPHENIRAMINE MALEATE 4 MG TABLET NG SCH (18:00)
[2019-02-28] MEDS ORDERED: PREDNISONE 20 MG TABLET NG SCH (18:00)
[2019-02-28] MEDS: DILTIAZEM HCL 30 MG TABLET NG SCH ×2 (18:05→23:13)
[2019-02-28] MEDS: FLUTICASONE NASAL SPRAY 50 MCG/SPRY 120 SPRAY/16 GM NASL SCH ×2 (18:05→21:27)
[2019-02-28] MEDS: FAMOTIDINE 20 MG TABLET NG SCH (21:33)
[2019-03-01] MEDS: HYDRALAZINE HCL INJ/PF 20 MG/1 ML SDV IV PRN (00:01)
[2019-03-01] MEDS: IPRATROPIUM/ALBUTEROL 0.5-2.5 MG/3 ML AMPUL NEB SCH ×4 (01:49→19:44)
[2019-03-01] MEDS ORDERED: DILTIAZEM HCL INJ 25 MG/5 ML VIAL ONE (02:17)
[2019-03-01] MEDS ORDERED: DILTIAZEM HCL INJ 25 MG/5 ML VIAL IV ONE (02:30)
[2019-03-01] MEDS ORDERED: NORMAL SALINE 1000 ML 1,000 ML IV ONE (02:30)
[2019-03-01] MEDS: PROPOFOL 1,000 MG/100 ML INFUS..BTL IV PRN ×4 (02:53→20:40)
[2019-03-01 04:33] LABS: HEMATOCRIT 37.2 % (36.0-47.0); HEMOGLOBIN 12.2 g/dL (12.0-15.5); MEAN CORPUSCULAR HEMOGLOBIN 29.7 pg (27.0-33.4); MEAN CORPUSCULAR HGB CONC 32.7 g/dL (32.0-36.0); MEAN CORPUSCULAR VOLUME 91 fl (80-97); PLATELET COUNT 134 10^3/uL (150-450); WHITE BLOOD COUNT 7.6 10^3/uL (4.0-10.5)
[2019-03-01 04:48] LABS: ALANINE AMINOTRANSFERASE 31 U/L (9-52); ALBUMIN 3.1 g/dL (3.5-5.0); ALKALINE PHOSPHATASE 80 U/L (38-126); ANION GAP 10 (5-19); ASPARTATE AMINO TRANSFERASE 27 U/L (14-36); BILIRUBIN,DIRECT 0.3 mg/dL (0.0-0.4); BILIRUBIN,TOTAL 0.5 mg/dL (0.2-1.3); BLOOD UREA NITROGEN 20 mg/dL (7-20); CALCIUM 8.6 mg/dL (8.4-10.2); CARBON DIOXIDE 35 mmol/L (22-30); CHLORIDE 94 mmol/L (98-107); GLUCOSE 141 mg/dL (75-110); POTASSIUM 3.7 mmol/L (3.6-5.0); SODIUM 138.9 mmol/L (137-145); TOTAL PROTEIN 5.7 g/dL (6.3-8.2)
[2019-03-01 04:53] LABS: ARTERIAL BLOOD BASE EXCESS 9.2 mmol/L; ARTERIAL BLOOD H2CO3 1.51 mmol/L (1.05-1.35); ARTERIAL BLOOD HCO3 34.6 mmol/L (20-24); ARTERIAL BLOOD O2 SATURATION 94.3 % (94-98); ARTERIAL BLOOD PCO2 50.1 mmHg (35-45); ARTERIAL BLOOD PH 7.46 (7.35-7.45); ARTERIAL BLOOD PO2 68.4 mmHg (80-100); ARTERIAL BLOOD TOTAL CO2 36.1 mmol/L (21-25)
[2019-03-01 04:56] LABS: ARTERIAL BLOOD FIO2 35%
[2019-03-01 04:56] LABS: PREALBUMIN 10.7 mg/dL (17.6-36.0)
[2019-03-01 04:57] LABS: ABSOLUTE LYMPHOCYTES# (MANUAL) 0.2 10^3/uL (0.5-4.7); ABSOLUTE MONOCYTES # (MANUAL) 0.1 10^3/uL (0.1-1.4); ABSOLUTE NEUTROPHILS# (MANUAL) 7.4 10^3/uL (1.7-8.2); ANISOCYTOSIS SLIGHT; BASOPHILS % (MANUAL) 0 % (0-2); EOSINOPHILS % (MANUAL) 0 % (0-6); LYMPHOCYTES % (MANUAL) 2 % (13-45); MONOCYTES % (MANUAL) 1 % (3-13); PLATELET COMMENT DECREASED; SEGMENTED NEUTROPHILS % (MAN) 97 % (42-78); STOMATOCYTES 1+; TOTAL CELLS COUNTED 100
[2019-03-01] MEDS: METHYLPREDNISOLONE INJ 40 MG/1 ML SDV IV SCH ×3 (05:36→21:28)
[2019-03-01] MEDS: LEVOFLOXACIN 750 MG/D5W RTU 750 MG/150 ML RTUPB IV SCH (05:36)
[2019-03-01] MEDS: HEPARIN SOD (PORCINE) 5,000 UNIT/ML 1 ML SYRINGE SUBCUT SCH ×3 (05:37→21:29)
[2019-03-01] MEDS: DILTIAZEM HCL 30 MG TABLET NG SCH ×4 (05:37→23:58)
[2019-03-01 05:42] LABS: INTERNATIONAL RATION (INR) 0.91; PROTHROMBIN TIME 12.7 SEC (11.4-15.4)
[2019-03-01 05:43] LABS: PARTIAL THROMBOPLASTIN TIME 30.1 SEC (23.5-35.8)
--- NOTE | 2019-03-01 08:43 | RADIOLOGY REPORT (SQ) ---
EXAM DESCRIPTION: CHEST SINGLE VIEW COMPLETED DATE/TIME: 03/01/2019 6:30 am REASON FOR STUDY: acute/chronic resp failure COMPARISON: None. NUMBER OF VIEWS: One view. TECHNIQUE: Single frontal radiographic image of the chest acquired. LIMITATIONS: None. FINDINGS: LUNGS AND PLEURA: COPD. No infiltrate. No pneumothorax. MEDIASTINUM AND HEART: Stable heart size and mediastinal structures. SUPPORT DEVICES: Appropriate location without change. BONY STRUCTURES: No acute findings. HARDWARE: None. OTHER: No other significant finding. IMPRESSION: STABLE APPEARANCE OF THE CHEST. SUPPORT DEVICES UNCHANGED. Reading location - IP/workstation name: [email or web address]
[2019-03-01] MEDS: FLUTICASONE NASAL SPRAY 50 MCG/SPRY 120 SPRAY/16 GM NASL SCH ×2 (09:02→21:28)
[2019-03-01] MEDS: FAMOTIDINE 20 MG TABLET NG SCH ×2 (09:15→21:28)
[2019-03-01] MEDS: LORAZEPAM INJ 2 MG/1 ML VIAL IV PRN ×3 (11:11→20:39)
--- NOTE | 2019-03-01 11:44 | PDOC PROGRESS REPORT ---
Subjective Progress Note for:: 03/01/19 Subjective:: patient currently intubated and sedated Reason For Visit: COPD EXACERBATION,ACUTE BRONCHITIS Physical Exam Vital Signs: Temp Pulse Resp BP Pulse Ox 99.7 F 118 H 16 133/88 H 96 03/01/19 08:00 03/01/19 10:00 03/01/19 10:00 03/01/19 10:00 03/01/19 10:00 Intake & Output 02/28/19 03/01/19 03/02/19 06:59 06:59 06:59 Intake Total 500 1417 183 Output Total 840 480 Balance 500 997 -086 Weight 48.1 kg 50 kg General appearance: PRESENT: no acute distress, cooperative, thin Head exam: PRESENT: atraumatic, normocephalic Eye exam: PRESENT: conjunctiva pink, EOMI, PERRLA. ABSENT: scleral icterus Ear exam: PRESENT: normal external ear exam Mouth exam: PRESENT: moist, tongue midline Neck exam: ABSENT: carotid bruit, JVD, lymphadenopathy, thyromegaly Respiratory exam: PRESENT: decreased breath sounds, prolonged expiratory phas Cardiovascular exam: PRESENT: RRR. ABSENT: diastolic murmur, rubs, systolic murmur Pulses: PRESENT: normal radial pulses Vascular exam: PRESENT: normal capillary refill GI/Abdominal exam: PRESENT: normal bowel sounds, soft. ABSENT: mass Rectal exam: PRESENT: deferred Extremities exam: PRESENT: full ROM. ABSENT: calf tenderness, clubbing, pedal edema Musculoskeletal exam: ABSENT: deformity, dislocation Neurological exam: PRESENT: awake Psychiatric exam: PRESENT: normal mood Skin exam: PRESENT: dry, intact, warm. ABSENT: cyanosis, rash Results Laboratory Results: 03/01/19 03:46 03/01/19 03:46 02/28/19 02/28/19 03/01/19 11:25 14:20 03:46 WBC 7.6 RBC 4.10 Hgb 12.2 Hct 37.2 MCV 91 MCH 29.7 MCHC 32.7 RDW 15.0 H Plt Count 134 L Seg Neutrophils % Not Reportable Lymphocytes % Not Reportable Monocytes % Not Reportable Eosinophils % Not Reportable Basophils % Not Reportable Absolute Neutrophils Not Reportable Absolute Lymphocytes Not Reportable Absolute Monocytes Not Reportable Absolute Eosinophils Not Reportable Absolute Basophils Not Reportable Carbonic Acid 2.63 H 1.71 H HCO3/H2CO3 Ratio 16:1 23:1 ABG pH 7.32 L 7.47 H ABG pCO2 87.3 H* 56.8 H ABG pO2 89.3 89.3 ABG HCO3 44.0 H 40.0 H ABG O2 Saturation 95.6 97.1 ABG Base Excess 13.6 13.8 FiO2 40% 35% Sodium Potassium Chloride Carbon Dioxide Anion Gap BUN Creatinine Est GFR ( Amer) Est GFR (Non-Af Amer) Glucose Calcium Magnesium Total Bilirubin AST ALT Alkaline Phosphatase Total Protein Albumin Prealbumin 03/01/19 03/01/19 03:46 04:50 WBC RBC Hgb Hct MCV MCH MCHC RDW Plt Count Seg Neutrophils % Lymphocytes % Monocytes % Eosinophils % Basophils % Absolute Neutrophils Absolute Lymphocytes Absolute Monocytes Absolute Eosinophils Absolute Basophils Carbonic Acid 1.51 H HCO3/H2CO3 Ratio 22:1 ABG pH 7.46 H ABG pCO2 50.1 H ABG pO2 68.4 L ABG HCO3 34.6 H ABG O2 Saturation 94.3 ABG Base Excess 9.2 FiO2 35% Sodium 138.9 Potassium 3.7 Chloride 94 L Carbon Dioxide 35 H Anion Gap 10 BUN 20 Creatinine 0.37 L Est GFR ( Amer) > 60 Est GFR (Non-Af Amer) > 60 Glucose 141 H Calcium 8.6 Magnesium 1.9 Total Bilirubin 0.5 AST 27 ALT 31 Alkaline Phosphatase 80 Total Protein 5.7 L Albumin 3.1 L Prealbumin 10.7 L 02/28/19 02/28/19 00:00 00:00 Troponin I < 0.012 NT-Pro-B Natriuret Pep 54 Impressions: Chest X-Ray 03/01/19 06:00 IMPRESSION: STABLE APPEARANCE OF THE CHEST. SUPPORT DEVICES UNCHANGED. Assessment & Plan - Diagnosis (1) Acute on chronic respiratory failure with hypoxia and hypercapnia Is this a current diagnosis for this admission?: Yes Plan: Approximate hypercapnic respiratory failure large amount of air trapping is sustained by chest x-ray (2) Emphysema Qualifiers: Emphysema type: centrilobular Qualified Code(s): J43.2 - Centrilobular emphysema Is this a current diagnosis for this admission?: Yes Plan: Long acting muscarinic agent plus long acting beta agonist plus rescue albuterol (3) Pulmonary cachexia due to chronic obstructive pulmonary disease Is this a current diagnosis for this admission?: Yes Plan: Enteral feeding plus beneprotein 3 times a day - Time Total Critical Time (Minutes): 45 Inpatient Scribe Statement - . Entered by Clotilde Adames, acting as scribe for .
--- NOTE | 2019-03-01 18:05 | PDOC PROGRESS REPORT ---
Subjective Progress Note for:: 03/01/19 Subjective:: The patient is a 63-year-old female with a past medical history of emphysema; home O2 dependent with trilogy, hypertension, hyperlipidemia, and GERD who was admitted by the NURSE ORTHO early this morning for acute respiratory failure with hypercapnia and hypoxia secondary to COPD exacerbation. Patient was seen on morning rounds. The patient is in the ICU, intubated and mechanically ventilated. She is lightly sedated and so easily wakes, communicates with gestures, and follow commands. Her only complaint today is anxiety. She denies fever, chills, chest pain, palpitations, abdominal pain, nausea, diarrhea, constipation, and pain. No questions per patient/family or nursing. Reason For Visit: COPD EXACERBATION,ACUTE BRONCHITIS Physical Exam Vital Signs: Temp Pulse Resp BP Pulse Ox 100.0 F 95 12 105/71 91 L 03/01/19 16:00 03/01/19 16:00 03/01/19 16:00 03/01/19 16:00 03/01/19 17:14 Intake & Output 02/28/19 03/01/19 03/02/19 06:59 06:59 06:59 Intake Total 500 1417 283 Output Total 840 1005 Balance 500 577 -722 Weight 48.1 kg 50 kg General appearance: PRESENT: no acute distress, cooperative, thin, well- developed, other - Lightly sedated Head exam: PRESENT: atraumatic, normocephalic Eye exam: PRESENT: conjunctiva pink, EOMI, PERRLA. ABSENT: scleral icterus Ear exam: PRESENT: normal external ear exam Mouth exam: PRESENT: moist, tongue midline Neck exam: ABSENT: carotid bruit, JVD, lymphadenopathy, thyromegaly Respiratory exam: PRESENT: prolonged expiratory phas, rhonchi, symmetrical, tachypnea, wheezes, other - Intubated/mechanically ventilated. ABSENT: rales Cardiovascular exam: PRESENT: RRR, +S1, +S2, tachycardia. ABSENT: diastolic murmur, rubs, systolic murmur Pulses: PRESENT: normal dorsalis pedis pul Vascular exam: PRESENT: normal capillary refill GI/Abdominal exam: PRESENT: normal bowel sounds, soft. ABSENT: distended, guarding, mass, organolmegaly, rebound, tenderness Rectal exam: PRESENT: deferred Gentrourinary exam: PRESENT: indwelling catheter Extremities exam: PRESENT: full ROM. ABSENT: calf tenderness, clubbing, pedal edema Neurological exam: PRESENT: alert, awake, oriented to person, oriented to place, oriented to time, oriented to situation, CN II-XII grossly intact. ABSENT: motor sensory deficit Psychiatric exam: PRESENT: anxious, appropriate affect, normal mood. ABSENT: ho micidal ideation, suicidal ideation Skin exam: PRESENT: dry, intact, warm. ABSENT: cyanosis, rash Results Laboratory Results: 03/01/19 03:46 03/01/19 03:46 03/01/19 03/01/19 03/01/19 03:46 03:46 04:50 WBC 7.6 RBC 4.10 Hgb 12.2 Hct 37.2 MCV 91 MCH 29.7 MCHC 32.7 RDW 15.0 H Plt Count 134 L Seg Neutrophils % Not Reportable Lymphocytes % Not Reportable Monocytes % Not Reportable Eosinophils % Not Reportable Basophils % Not Reportable Absolute Neutrophils Not Reportable Absolute Lymphocytes Not Reportable Absolute Monocytes Not Reportable Absolute Eosinophils Not Reportable Absolute Basophils Not Reportable Carbonic Acid 1.51 H HCO3/H2CO3 Ratio 22:1 ABG pH 7.46 H ABG pCO2 50.1 H ABG pO2 68.4 L ABG HCO3 34.6 H ABG O2 Saturation 94.3 ABG Base Excess 9.2 FiO2 35% Sodium 138.9 Potassium 3.7 Chloride 94 L Carbon Dioxide 35 H Anion Gap 10 BUN 20 Creatinine 0.37 L Est GFR ( Amer) > 60 Est GFR (Non-Af Amer) > 60 Glucose 141 H Calcium 8.6 Magnesium 1.9 Total Bilirubin 0.5 AST 27 ALT 31 Alkaline Phosphatase 80 Total Protein 5.7 L Albumin 3.1 L Prealbumin 10.7 L 02/28/19 02/28/19 00:00 00:00 Troponin I < 0.012 NT-Pro-B Natriuret Pep 54 Impressions: Chest X-Ray 03/01/19 06:00 IMPRESSION: STABLE APPEARANCE OF THE CHEST. SUPPORT DEVICES UNCHANGED. Assessment and Plan - Diagnosis (1) Acute on chronic respiratory failure with hypoxia and hypercapnia Is this a current diagnosis for this admission?: Yes Plan: Blood cultures have no growth at 24 hours. Sputum cultures pending. Patient is upgraded to ICU. She is urgently intubated and mechanically ventilated. Dr. Valentine is consulted for COPD exacerbation and ventilator management. Continue scheduled and as needed nebulizer treatments. Empiric Levaquin for bronchitis; will adjust as cultures result. Continue IV Solu-medrol 40 mg q 8 hours. She did well with weaning today; possible extubation tomorrow. (2) COPD exacerbation Is this a current diagnosis for this admission?: Yes Plan: Evaluation and management as above. (3) Allergic sinusitis Is this a current diagnosis for this admission?: Yes Plan: Flonase and chlorpheniramine. (4) Protein calorie malnutrition Is this a current diagnosis for this admission?: Yes Plan: Currently intubated. irrigationist designer is consulted; have begun tube feeds via NG tube per their recommendations. (5) Sinus tachycardia Is this a current diagnosis for this admission?: Yes Plan: Overall improved today. Patient with intermittent episodes of sinus tachycardia; 100-180. Most of these episodes appear to be related to anxiety. We will continue diltiazem 60 mg every 6 hours; this is achieved acceptable blood pressures as well. IV Ativan 0.5 mg every 2 hours as needed for anxiety/agitation. Continue to monitor on continuous cardiac telemetry. - Time Time Spent with patient: 35 or more minutes Medications reviewed and adjusted accordingly: Yes Anticipated discharge: Home with Homehealth
[2019-03-02] MEDS: IPRATROPIUM/ALBUTEROL 0.5-2.5 MG/3 ML AMPUL NEB SCH ×4 (02:01→20:49)
[2019-03-02] MEDS: PROPOFOL 1,000 MG/100 ML INFUS..BTL IV PRN (03:01)
[2019-03-02 04:59] LABS: HEMATOCRIT 37.3 % (36.0-47.0); HEMOGLOBIN 12.2 g/dL (12.0-15.5); MEAN CORPUSCULAR HEMOGLOBIN 30.1 pg (27.0-33.4); MEAN CORPUSCULAR HGB CONC 32.8 g/dL (32.0-36.0); MEAN CORPUSCULAR VOLUME 92 fl (80-97); PLATELET COUNT 140 10^3/uL (150-450); RED BLOOD COUNT 4.07 10^6/uL (3.72-5.28); RED CELL DISTRIBUTION WIDTH 15.2 % (11.5-14.0); WHITE BLOOD COUNT 7.9 10^3/uL (4.0-10.5)
[2019-03-02 05:05] LABS: ANION GAP 7 (5-19); BLOOD UREA NITROGEN 30 mg/dL (7-20); CALCIUM 9.2 mg/dL (8.4-10.2); CARBON DIOXIDE 37 mmol/L (22-30); CHLORIDE 96 mmol/L (98-107); GLUCOSE 161 mg/dL (75-110); POTASSIUM 3.7 mmol/L (3.6-5.0); SODIUM 139.8 mmol/L (137-145)
[2019-03-02] MEDS: DILTIAZEM HCL 30 MG TABLET NG SCH ×3 (05:09→19:08)
[2019-03-02] MEDS: LEVOFLOXACIN 750 MG/D5W RTU 750 MG/150 ML RTUPB IV SCH (05:10)
[2019-03-02] MEDS: HEPARIN SOD (PORCINE) 5,000 UNIT/ML 1 ML SYRINGE SUBCUT SCH ×3 (05:11→22:11)
[2019-03-02] MEDS: METHYLPREDNISOLONE INJ 40 MG/1 ML SDV IV SCH ×3 (05:11→22:10)
[2019-03-02 05:16] LABS: ARTERIAL BLOOD BASE EXCESS 14.3 mmol/L; ARTERIAL BLOOD H2CO3 1.77 mmol/L (1.05-1.35); ARTERIAL BLOOD HCO3 40.6 mmol/L (20-24); ARTERIAL BLOOD O2 SATURATION 93.5 % (94-98); ARTERIAL BLOOD PCO2 58.7 mmHg (35-45); ARTERIAL BLOOD PH 7.46 (7.35-7.45); ARTERIAL BLOOD TOTAL CO2 42.4 mmol/L (21-25)
[2019-03-02 05:32] LABS: ARTERIAL BLOOD FIO2 35%
[2019-03-02 05:55] LABS: ABSOLUTE LYMPHOCYTES# (MANUAL) 0.1 10^3/uL (0.5-4.7); ABSOLUTE MONOCYTES # (MANUAL) 0.4 10^3/uL (0.1-1.4); ABSOLUTE NEUTROPHILS# (MANUAL) 7.4 10^3/uL (1.7-8.2); BASOPHILS % (MANUAL) 0 % (0-2); EOSINOPHILS % (MANUAL) 0 % (0-6); LYMPHOCYTES % (MANUAL) 0 % (13-45); MONOCYTES % (MANUAL) 5 % (3-13); SEGMENTED NEUTROPHILS % (MAN) 94 % (42-78); TOTAL CELLS COUNTED 100
[2019-03-02 05:56] LABS: ANISOCYTOSIS SLIGHT; PLATELET COMMENT DECREASED; STOMATOCYTES 1+
[2019-03-02] MEDS: FAMOTIDINE 20 MG TABLET NG SCH (10:23)
[2019-03-02] MEDS: FLUTICASONE NASAL SPRAY 50 MCG/SPRY 120 SPRAY/16 GM NASL SCH ×2 (10:23→22:12)
[2019-03-02] MEDS ORDERED: DEXAMETHASONE SOD PHOSPHATE INJ 4 MG/1 ML VIAL IV ONE (10:30)
[2019-03-02] MEDS ORDERED: CEFTRIAXONE 1 GM/D5W RTU 1 GM/50 ML RTUPB IV SCH (12:00)
[2019-03-02 12:38] LABS: ARTERIAL BLOOD BASE EXCESS 10.7 mmol/L; ARTERIAL BLOOD H2CO3 2.09 mmol/L (1.05-1.35); ARTERIAL BLOOD HCO3 38.9 mmol/L (20-24); ARTERIAL BLOOD O2 SATURATION 90.2 % (94-98); ARTERIAL BLOOD PH 7.37 (7.35-7.45); ARTERIAL BLOOD PO2 62.3 mmHg (80-100)
[2019-03-02 12:39] LABS: ARTERIAL BLOOD FIO2 35%
[2019-03-02 12:41] LABS: ARTERIAL BLOOD PCO2 69.4 mmHg (35-45)
[2019-03-02] MEDS: CEFTRIAXONE SODIUM 1,000 MG in DEXTROSE 5%-WATER 50 ML IV SCH (15:11)
--- NOTE | 2019-03-02 16:15 | PDOC PROGRESS REPORT ---
Subjective Progress Note for:: 03/02/19 Subjective:: The patient is a 63-year-old female with a past medical history of emphysema; home O2 dependent with trilogy, hypertension, hyperlipidemia, and GERD who was admitted by the WEAPONS ELECTRICAL ENGINEERING OFFICER early this morning for acute respiratory failure with hypercapnia and hypoxia secondary to COPD exacerbation. Patient was seen on morning rounds. The patient is in the ICU, intubated and mechanically ventilated. She is lightly sedated and so easily wakes, communicates with gestures, and follow commands. She nods yes when asked if she feels better. She denies fever, chills, chest pain, palpitations, abdominal pain, nausea, diarrhea, constipation, and pain. No questions or concerns at this time, no family present. Nursing are optimistic patient will be extubated today; did very well during breathing trial yesterday. Reason For Visit: COPD EXACERBATION,ACUTE BRONCHITIS Physical Exam Vital Signs: Temp Pulse Resp BP Pulse Ox 99.7 F 95 12 118/91 H 94 03/02/19 08:00 03/02/19 08:00 03/02/19 08:00 03/02/19 08:00 03/02/19 08:23 Intake & Output 03/01/19 03/02/19 03/03/19 06:59 06:59 06:59 Intake Total 1417 645 225 Output Total 840 1255 45 Balance 577 -610 180 Weight 50 kg 50.6 kg General appearance: PRESENT: no acute distress, cooperative, thin, well- developed, other - Lightly sedated Head exam: PRESENT: atraumatic, normocephalic Eye exam: PRESENT: conjunctiva pink, EOMI, PERRLA. ABSENT: scleral icterus Ear exam: PRESENT: normal external ear exam Mouth exam: PRESENT: moist, tongue midline Neck exam: ABSENT: carotid bruit, JVD, lymphadenopathy, thyromegaly Respiratory exam: PRESENT: clear to auscultation shai, symmetrical, unlabored, other - Intubated, mechanically ventilated. ABSENT: rales, rhonchi, wheezes Cardiovascular exam: PRESENT: RRR, +S1, +S2, tachycardia. ABSENT: diastolic murmur, rubs, systolic murmur Pulses: PRESENT: normal dorsalis pedis pul Vascular exam: PRESENT: normal capillary refill GI/Abdominal exam: PRESENT: normal bowel sounds, soft. ABSENT: distended, guarding, mass, organolmegaly, rebound, tenderness Rectal exam: PRESENT: deferred Gentrourinary exam: PRESENT: indwelling catheter Extremities exam: PRESENT: full ROM. ABSENT: calf tenderness, clubbing, pedal edema Neurological exam: PRESENT: alert, awake, oriented to person, oriented to place, oriented to time, oriented to situation, CN II-XII grossly intact. ABSENT: motor sensory deficit Psychiatric exam: PRESENT: appropriate affect, normal mood. ABSENT: homicidal ideation, suicidal ideation Skin exam: PRESENT: dry, intact, warm. ABSENT: cyanosis, rash Results Laboratory Results: 03/02/19 04:20 03/02/19 04:20 03/02/19 03/02/19 03/02/19 04:20 04:20 05:03 WBC 7.9 RBC 4.07 Hgb 12.2 Hct 37.3 MCV 92 MCH 30.1 MCHC 32.8 RDW 15.2 H Plt Count 140 L Seg Neutrophils % Not Reportable Lymphocytes % Not Reportable Monocytes % Not Reportable Eosinophils % Not Reportable Basophils % Not Reportable Absolute Neutrophils Not Reportable Absolute Lymphocytes Not Reportable Absolute Monocytes Not Reportable Absolute Eosinophils Not Reportable Absolute Basophils Not Reportable Carbonic Acid 1.77 H HCO3/H2CO3 Ratio 22:1 ABG pH 7.46 H ABG pCO2 58.7 H ABG pO2 66.0 L ABG HCO3 40.6 H ABG O2 Saturation 93.5 L ABG Base Excess 14.3 FiO2 35% Sodium 139.8 Potassium 3.7 Chloride 96 L Carbon Dioxide 37 H Anion Gap 7 BUN 30 H Creatinine 0.40 L Est GFR ( Amer) > 60 Est GFR (Non-Af Amer) > 60 Glucose 161 H Calcium 9.2 02/28/19 02/28/19 00:00 00:00 Troponin I < 0.012 NT-Pro-B Natriuret Pep 54 Impressions: Chest X-Ray 03/01/19 06:00 IMPRESSION: STABLE APPEARANCE OF THE CHEST. SUPPORT DEVICES UNCHANGED. Assessment and Plan - Diagnosis (1) Acute on chronic respiratory failure with hypoxia and hypercapnia Is this a current diagnosis for this admission?: Yes Plan: Blood cultures have no growth at 48 hours. Sputum cultures strep pneumo Patient is upgraded to ICU. She is urgently intubated and mechanically ventilated; possible extubation today. Dr. Valentine is consulted for COPD exacerbation and ventilator management. Continue scheduled and as needed nebulizer treatments. Change to IV Rocephin for treatment of Streptococcus pneumoniae Continue IV Solu-medrol 40 mg q 8 hours. (2) COPD exacerbation Is this a current diagnosis for this admission?: Yes Plan: Evaluation and management as above. (3) Allergic sinusitis Is this a current diagnosis for this admission?: Yes Plan: Flonase and chlorpheniramine. (4) Protein calorie malnutrition Is this a current diagnosis for this admission?: Yes Plan: Currently intubated. motor scooter mechanic is consulted; have begun tube feeds via NG tube per their recommendations. (5) Sinus tachycardia Is this a current diagnosis for this admission?: Yes Plan: Improved; heart rate now 90-110 We will continue diltiazem 60 mg every 6 hours; this is achieved acceptable bloo d pressures as well. IV Ativan 0.5 mg every 2 hours as needed for anxiety/agitation. Continue to monitor on continuous cardiac telemetry. - Time Time Spent with patient: 35 or more minutes Medications reviewed and adjusted accordingly: Yes Anticipated discharge: Home Within: within 72 hours
[2019-03-02] MEDS: LORAZEPAM INJ 2 MG/1 ML VIAL IV PRN ×2 (17:06→22:09)
[2019-03-02] MEDS: NORMAL SALINE 1000 ML 1,000 ML IV PRN (17:11)
[2019-03-02] MEDS: DILTIAZEM HCL INJ 25 MG/5 ML VIAL IV SCH (22:10)
[2019-03-03] MEDS: IPRATROPIUM/ALBUTEROL 0.5-2.5 MG/3 ML AMPUL NEB SCH ×4 (02:10→19:52)
[2019-03-03] MEDS: LORAZEPAM INJ 2 MG/1 ML VIAL IV PRN ×6 (02:37→18:05)
[2019-03-03 04:06] LABS: HEMATOCRIT 39.2 % (36.0-47.0); HEMOGLOBIN 12.7 g/dL (12.0-15.5); MEAN CORPUSCULAR HEMOGLOBIN 29.8 pg (27.0-33.4); MEAN CORPUSCULAR HGB CONC 32.5 g/dL (32.0-36.0); MEAN CORPUSCULAR VOLUME 92 fl (80-97); PLATELET COUNT 142 10^3/uL (150-450); RED BLOOD COUNT 4.27 10^6/uL (3.72-5.28); RED CELL DISTRIBUTION WIDTH 14.9 % (11.5-14.0); WHITE BLOOD COUNT 7.9 10^3/uL (4.0-10.5)
[2019-03-03 04:25] LABS: ALANINE AMINOTRANSFERASE 39 U/L (9-52); ALBUMIN 3.2 g/dL (3.5-5.0); ALKALINE PHOSPHATASE 74 U/L (38-126); ASPARTATE AMINO TRANSFERASE 30 U/L (14-36); BILIRUBIN,DIRECT 0.3 mg/dL (0.0-0.4); BILIRUBIN,TOTAL 0.3 mg/dL (0.2-1.3); BLOOD UREA NITROGEN 30 mg/dL (7-20); CALCIUM 8.7 mg/dL (8.4-10.2); CHLORIDE 99 mmol/L (98-107); GLUCOSE 123 mg/dL (75-110); POTASSIUM 4.3 mmol/L (3.6-5.0); SODIUM 145.8 mmol/L (137-145); TOTAL PROTEIN 6.1 g/dL (6.3-8.2)
[2019-03-03 04:30] LABS: ABSOLUTE LYMPHOCYTES# (MANUAL) 0.3 10^3/uL (0.5-4.7); ABSOLUTE MONOCYTES # (MANUAL) 0.2 10^3/uL (0.1-1.4); ABSOLUTE NEUTROPHILS# (MANUAL) 7.3 10^3/uL (1.7-8.2); ANISOCYTOSIS SLIGHT; BAND NEUTROPHILS % (MANUAL) 3 % (3-5); BASOPHILS % (MANUAL) 0 % (0-2); EOSINOPHILS % (MANUAL) 0 % (0-6); LYMPHOCYTES % (MANUAL) 4 % (13-45); MONOCYTES % (MANUAL) 3 % (3-13); SEGMENTED NEUTROPHILS % (MAN) 90 % (42-78); TOTAL CELLS COUNTED 100; TOXIC GRANULATION SLIGHT
[2019-03-03 04:31] LABS: PLATELET COMMENT DECREASED
[2019-03-03 04:33] LABS: CARBON DIOXIDE 43 mmol/L (22-30)
[2019-03-03 04:35] LABS: ANION GAP 4 (5-19)
[2019-03-03 04:56] LABS: ARTERIAL BLOOD H2CO3 2.56 mmol/L (1.05-1.35); ARTERIAL BLOOD HCO3 39.9 mmol/L (20-24); ARTERIAL BLOOD O2 SATURATION 93.3 % (94-98); ARTERIAL BLOOD PH 7.29 (7.35-7.45); ARTERIAL BLOOD PO2 77.6 mmHg (80-100); ARTERIAL BLOOD TOTAL CO2 42.5 mmol/L (21-25)
[2019-03-03 04:57] LABS: ARTERIAL BLOOD FIO2 50%
[2019-03-03 04:58] LABS: ARTERIAL BLOOD PCO2 84.9 mmHg (35-45)
[2019-03-03] MEDS: METHYLPREDNISOLONE INJ 40 MG/1 ML SDV IV SCH ×2 (05:19→17:49)
[2019-03-03] MEDS: DILTIAZEM HCL INJ 25 MG/5 ML VIAL IV SCH ×3 (05:19→17:39)
[2019-03-03] MEDS: HEPARIN SOD (PORCINE) 5,000 UNIT/ML 1 ML SYRINGE SUBCUT SCH ×3 (05:19→21:59)
--- NOTE | 2019-03-03 07:08 | RADIOLOGY REPORT (SQ) ---
EXAM DESCRIPTION: XR CHEST 1 VIEW COMPLETED DATE/TME: 03/03/2019 06:00 CLINICAL HISTORY: 63 years Female, resp failure COMPARISON: One day prior. NUMBER OF VIEWS/TECHNIQUE: 1/AP FINDINGS: Increased lung volume. Old granulomatous disease. Normal cardiac silhouette size. No pneumothorax. Stable bony thorax. IMPRESSION: Interval extubation.
[2019-03-03] MEDS: HYDRALAZINE HCL INJ/PF 20 MG/1 ML SDV IV PRN ×2 (08:16→16:12)
[2019-03-03] MEDS: METOPROLOL TARTRATE PF/INJ 5 MG/5 ML SDV IV PRN ×2 (08:58→18:34)
[2019-03-03] MEDS: CEFTRIAXONE SODIUM 1,000 MG in DEXTROSE 5%-WATER 50 ML IV SCH (09:28)
[2019-03-03] MEDS: PANTOPRAZOLE SODIUM 40 MG VIAL IV SCH (09:28)
[2019-03-03] MEDS: FLUTICASONE NASAL SPRAY 50 MCG/SPRY 120 SPRAY/16 GM NASL SCH ×2 (09:32→21:59)
[2019-03-03 12:44] LABS: ARTERIAL BLOOD BASE EXCESS 13.9 mmol/L; ARTERIAL BLOOD H2CO3 2.72 mmol/L (1.05-1.35); ARTERIAL BLOOD HCO3 44.4 mmol/L (20-24); ARTERIAL BLOOD O2 SATURATION 92.8 % (94-98); ARTERIAL BLOOD PH 7.31 (7.35-7.45); ARTERIAL BLOOD PO2 74.7 mmHg (80-100); ARTERIAL BLOOD TOTAL CO2 47.2 mmol/L (21-25)
[2019-03-03 12:45] LABS: ARTERIAL BLOOD FIO2 45%
[2019-03-03 12:47] LABS: ARTERIAL BLOOD PCO2 90.2 mmHg (35-45)
--- NOTE | 2019-03-03 14:50 | PDOC PROGRESS REPORT ---
Subjective Progress Note for:: 03/03/19 Subjective:: The patient is a 63-year-old female with a past medical history of emphysema; home O2 dependent with trilogy, hypertension, hyperlipidemia, and GERD who was admitted by the CRANE HOIST OR LIFT OPERATOR early this morning for acute respiratory failure with hypercapnia and hypoxia secondary to COPD exacerbation. Patient was seen on morning rounds. The patient is in the ICU; extubated yesterday and now on BiPAP. The patient is awake, alert and orientated x4. She states that she is short of breath, but overall improved. We discussed her elevated respiratory rate/heart rate and ABG results. She was told that we would eb watching her closely for indications for re-intubation; patient confirms that she would want to be reintubated if necessary. She denies fever, chills, chest pain, palpitations, abdominal pain, nausea, diarrhea, constipation, and pain. She has no questions of concerns at this time. No concerns per nursing. Reason For Visit: COPD EXACERBATION,ACUTE BRONCHITIS Physical Exam Vital Signs: Temp Pulse Resp BP Pulse Ox 95.9 F L 107 H 30 H 138/91 H 92 03/03/19 12:00 03/03/19 14:02 03/03/19 14:02 03/03/19 12:00 03/03/19 14:02 Intake & Output 03/02/19 03/03/19 03/04/19 06:59 06:59 06:59 Intake Total 645 276 Output Total 1255 1295 170 Balance -610 -1019 -170 Weight 50.6 kg 49.5 kg General appearance: PRESENT: no acute distress, cooperative, thin, well- developed, well-nourished Head exam: PRESENT: atraumatic, normocephalic Eye exam: PRESENT: conjunctiva pink, EOMI, PERRLA. ABSENT: scleral icterus Ear exam: PRESENT: normal external ear exam Mouth exam: PRESENT: moist, tongue midline Teeth exam: PRESENT: poor dentation Neck exam: ABSENT: carotid bruit, JVD, lymphadenopathy, thyromegaly Respiratory exam: PRESENT: decreased breath sounds - throughout, prolonged expiratory phas, rhonchi, symmetrical, tachypnea, other - AVAPS. ABSENT: rales, wheezes Cardiovascular exam: PRESENT: RRR, +S1, +S2, tachycardia. ABSENT: diastolic murmur, rubs, systolic murmur Pulses: PRESENT: normal dorsalis pedis pul Vascular exam: PRESENT: normal capillary refill GI/Abdominal exam: PRESENT: normal bowel sounds, soft. ABSENT: distended, guarding, mass, organolmegaly, rebound, tenderness Rectal exam: PRESENT: deferred Extremities exam: PRESENT: full ROM. ABSENT: calf tenderness, clubbing, pedal edema Neurological exam: PRESENT: alert, awake, oriented to person, oriented to place, oriented to time, oriented to situation, CN II-XII grossly intact. ABSENT: motor sensory deficit Psychiatric exam: PRESENT: appropriate affect, normal mood. ABSENT: homicidal ideation, suicidal ideation Skin exam: PRESENT: dry, intact, warm. ABSENT: cyanosis, rash Results Laboratory Results: 03/03/19 03:55 03/03/19 03:55 03/03/19 03/03/19 03/03/19 03:55 03:55 04:46 WBC 7.9 RBC 4.27 Hgb 12.7 Hct 39.2 MCV 92 MCH 29.8 MCHC 32.5 RDW 14.9 H Plt Count 142 L Seg Neutrophils % Not Reportable Lymphocytes % Not Reportable Monocytes % Not Reportable Eosinophils % Not Reportable Basophils % Not Reportable Absolute Neutrophils Not Reportable Absolute Lymphocytes Not Reportable Absolute Monocytes Not Reportable Absolute Eosinophils Not Reportable Absolute Basophils Not Reportable Carbonic Acid 2.56 H HCO3/H2CO3 Ratio 15:1 ABG pH 7.29 L ABG pCO2 84.9 H* ABG pO2 77.6 L ABG HCO3 39.9 H ABG O2 Saturation 93.3 L ABG Base Excess 10.0 FiO2 50% Sodium 145.8 H Potassium 4.3 Chloride 99 Carbon Dioxide 43 H* Anion Gap 4 L BUN 30 H Creatinine 0.37 L Est GFR ( Amer) > 60 Est GFR (Non-Af Amer) > 60 Glucose 123 H Calcium 8.7 Phosphorus 4.0 Magnesium 2.1 Total Bilirubin 0.3 AST 30 ALT 39 Alkaline Phosphatase 74 Total Protein 6.1 L Albumin 3.2 L 03/03/19 12:31 WBC RBC Hgb Hct MCV MCH MCHC RDW Plt Count Seg Neutrophils % Lymphocytes % Monocytes % Eosinophils % Basophils % Absolute Neutrophils Absolute Lymphocytes Absolute Monocytes Absolute Eosinophils Absolute Basophils Carbonic Acid 2.72 H HCO3/H2CO3 Ratio 16:1 ABG pH 7.31 L ABG pCO2 90.2 H* ABG pO2 74.7 L ABG HCO3 44.4 H ABG O2 Saturation 92.8 L ABG Base Excess 13.9 FiO2 45% Sodium Potassium Chloride Carbon Dioxide Anion Gap BUN Creatinine Est GFR ( Amer) Est GFR (Non-Af Amer) Glucose Calcium Phosphorus Magnesium Total Bilirubin AST ALT Alkaline Phosphatase Total Protein Albumin 02/28/19 02/28/19 00:00 00:00 Troponin I < 0.012 NT-Pro-B Natriuret Pep 54 Impressions: Chest X-Ray 03/03/19 06:00 IMPRESSION: Interval extubation. Assessment and Plan - Diagnosis (1) Acute on chronic respiratory failure with hypoxia and hypercapnia Is this a current diagnosis for this admission?: Yes Plan: Critical; patient has been extubated. ABG worsening w/ tachycardia and tachypnea. Blood cultures have no growth at 72 hours. Sputum cultures strep pneumo Patient is upgraded to ICU. Dr. Valentine is consulted for COPD exacerbation. Continue scheduled and as needed nebulizer treatments. Change to IV Rocephin for treatment of Streptococcus pneumoniae Increase IV Solu-medrol to 40 mg q 6 hours. Serial ABGs today. Spoke with patient and ; both indicate that she wishes to be reintubated if necessary. (2) COPD exacerbation Is this a current diagnosis for this admission?: Yes Plan: Evaluation and management as above. (3) Allergic sinusitis Is this a current diagnosis for this admission?: Yes Plan: Flonase and chlorpheniramine. (4) Protein calorie malnutrition Is this a current diagnosis for this admission?: Yes Plan: Currently intubated. jig hand is consulted. (5) Sinus tachycardia Is this a current diagnosis for this admission?: Yes Plan: Secondary to #1 IV diltiazem 5 mg every 6 hours while not tolerating p.o. IV Lopressor 5 mg every 6 hours as needed for HR >120 IV Ativan 0.5 mg every 2 hours as needed for anxiety/agitation. Continue to monitor on continuous cardiac telemetry. - Time Time Spent with patient: 35 or more minutes Medications reviewed and adjusted accordingly: Yes
[2019-03-03 15:03] LABS: ARTERIAL BLOOD BASE EXCESS 12.6 mmol/L; ARTERIAL BLOOD FIO2 45%; ARTERIAL BLOOD HCO3 43.1 mmol/L (20-24); ARTERIAL BLOOD O2 SATURATION 89.2 % (94-98); ARTERIAL BLOOD PH 7.32 (7.35-7.45); ARTERIAL BLOOD PO2 63.7 mmHg (80-100); ARTERIAL BLOOD TOTAL CO2 45.8 mmol/L (21-25)
[2019-03-03 15:04] LABS: ARTERIAL BLOOD PCO2 86.4 mmHg (35-45)
[2019-03-03] MEDS: NORMAL SALINE 1000 ML 1,000 ML IV PRN (20:47)
[2019-03-03 22:23] LABS: ARTERIAL BLOOD BASE EXCESS 12.8 mmol/L; ARTERIAL BLOOD H2CO3 2.34 mmol/L (1.05-1.35); ARTERIAL BLOOD HCO3 41.9 mmol/L (20-24); ARTERIAL BLOOD O2 SATURATION 91.7 % (94-98); ARTERIAL BLOOD PH 7.35 (7.35-7.45); ARTERIAL BLOOD PO2 67.9 mmHg (80-100); ARTERIAL BLOOD TOTAL CO2 44.3 mmol/L (21-25)
[2019-03-03 22:31] LABS: ARTERIAL BLOOD FIO2 40%
[2019-03-03 22:33] LABS: ARTERIAL BLOOD PCO2 77.8 mmHg (35-45)
[2019-03-04] MEDS: LORAZEPAM INJ 2 MG/1 ML VIAL IV PRN ×6 (01:35→22:40)
[2019-03-04] MEDS: DILTIAZEM HCL INJ 25 MG/5 ML VIAL IV SCH ×5 (01:36→23:44)
[2019-03-04] MEDS: METHYLPREDNISOLONE INJ 40 MG/1 ML SDV IV SCH ×5 (01:36→23:44)
[2019-03-04] MEDS: IPRATROPIUM/ALBUTEROL 0.5-2.5 MG/3 ML AMPUL NEB SCH ×4 (02:01→19:40)
[2019-03-04 03:54] LABS: ABSOLUTE LYMPHOCYTES (AUTO) 0.3 10^3/uL (0.5-4.7); ABSOLUTE MONOCYTES (AUTO) 0.4 10^3/uL (0.1-1.4); ABSOLUTE NEUT (AUTO) 5.3 10^3/uL (1.7-8.2); BASOPHILS % (AUTO) 0.1 % (0-2); HEMATOCRIT 41.4 % (36.0-47.0); HEMOGLOBIN 13.2 g/dL (12.0-15.5); LYMPHOCYTES % (AUTO) 5.1 % (13-45); MEAN CORPUSCULAR HEMOGLOBIN 29.4 pg (27.0-33.4); MEAN CORPUSCULAR HGB CONC 31.9 g/dL (32.0-36.0); MEAN CORPUSCULAR VOLUME 92 fl (80-97); MONOCYTES % (AUTO) 6.2 % (3-13); PLATELET COUNT 151 10^3/uL (150-450); RED BLOOD COUNT 4.47 10^6/uL (3.72-5.28); SEGMENTED NEUTROPHILS % (AUTO) 88.6 % (42-78); TOTAL CELLS COUNTED % (AUTO) 100 %
[2019-03-04 04:12] LABS: ALANINE AMINOTRANSFERASE 42 U/L (9-52); ALBUMIN 3.3 g/dL (3.5-5.0); ALKALINE PHOSPHATASE 75 U/L (38-126); ASPARTATE AMINO TRANSFERASE 27 U/L (14-36); BILIRUBIN,DIRECT 0.4 mg/dL (0.0-0.4); BILIRUBIN,TOTAL 0.5 mg/dL (0.2-1.3); BLOOD UREA NITROGEN 35 mg/dL (7-20); CALCIUM 8.7 mg/dL (8.4-10.2); CHLORIDE 99 mmol/L (98-107); GLUCOSE 115 mg/dL (75-110); POTASSIUM 4.2 mmol/L (3.6-5.0); SODIUM 146.3 mmol/L (137-145); TOTAL PROTEIN 5.9 g/dL (6.3-8.2)
[2019-03-04 04:22] LABS: ANION GAP 6 (5-19)
[2019-03-04 04:24] LABS: CARBON DIOXIDE 41 mmol/L (22-30)
[2019-03-04] MEDS: HEPARIN SOD (PORCINE) 5,000 UNIT/ML 1 ML SYRINGE SUBCUT SCH ×3 (05:15→21:10)
[2019-03-04 05:45] LABS: ARTERIAL BLOOD BASE EXCESS 12.5 mmol/L; ARTERIAL BLOOD H2CO3 2.55 mmol/L (1.05-1.35); ARTERIAL BLOOD HCO3 42.3 mmol/L (20-24); ARTERIAL BLOOD O2 SATURATION 71.2 % (94-98); ARTERIAL BLOOD PH 7.32 (7.35-7.45); ARTERIAL BLOOD PO2 42.6 mmHg (80-100); ARTERIAL BLOOD TOTAL CO2 44.9 mmol/L (21-25)
[2019-03-04 05:57] LABS: ARTERIAL BLOOD FIO2 40%
[2019-03-04 05:59] LABS: ARTERIAL BLOOD PCO2 84.8 mmHg (35-45)
[2019-03-04] MEDS: NORMAL SALINE 1000 ML 1,000 ML IV PRN ×2 (09:17→22:17)
[2019-03-04] MEDS: PANTOPRAZOLE SODIUM 40 MG VIAL IV SCH (09:17)
[2019-03-04] MEDS: HYDRALAZINE HCL INJ/PF 20 MG/1 ML SDV IV PRN ×3 (09:17→19:10)
[2019-03-04] MEDS: CEFTRIAXONE SODIUM 1,000 MG in DEXTROSE 5%-WATER 50 ML IV SCH (09:18)
[2019-03-04] MEDS: FLUTICASONE NASAL SPRAY 50 MCG/SPRY 120 SPRAY/16 GM NASL SCH ×2 (09:18→21:10)
[2019-03-04 10:05] LABS: ARTERIAL BLOOD BASE EXCESS 14.6 mmol/L; ARTERIAL BLOOD H2CO3 2.31 mmol/L (1.05-1.35); ARTERIAL BLOOD HCO3 44.1 mmol/L (20-24); ARTERIAL BLOOD O2 SATURATION 93.9 % (94-98); ARTERIAL BLOOD PH 7.38 (7.35-7.45); ARTERIAL BLOOD PO2 74.1 mmHg (80-100); ARTERIAL BLOOD TOTAL CO2 46.4 mmol/L (21-25)
[2019-03-04 10:06] LABS: ARTERIAL BLOOD FIO2 40%
[2019-03-04 10:08] LABS: ARTERIAL BLOOD PCO2 76.6 mmHg (35-45)
[2019-03-04] MEDS: METOPROLOL TARTRATE PF/INJ 5 MG/5 ML SDV IV PRN ×2 (10:30→17:17)
--- NOTE | 2019-03-04 11:47 | PDOC PROGRESS REPORT ---
Subjective Progress Note for:: 03/04/19 Subjective:: The patient is a 63-year-old female with a past medical history of emphysema; home O2 dependent with trilogy, hypertension, hyperlipidemia, and GERD who was admitted by the CHANGE CONTROL SPECIALIST early this morning for acute respiratory failure with hypercapnia and hypoxia secondary to COPD exacerbation. Patient was seen on morning rounds. The patient is in the ICU; extubated 03/02/19 and now on AVAPS. She is sleeping soundly; nursing reports that she has received Ativan recently for anxiety. She appears to be comfortable, lying supine, and is not in any acute distress at this time. No concerns per nursing. Patient and confirmed yesterday that she would want to be re-intubated if necessary. Reason For Visit: COPD EXACERBATION,ACUTE BRONCHITIS Physical Exam Vital Signs: Temp Pulse Resp BP Pulse Ox 98.6 F 114 H 27 H 151/98 H 91 L 03/04/19 10:00 03/04/19 10:00 03/04/19 10:33 03/04/19 10:33 03/04/19 10:33 Intake & Output 03/03/19 03/04/19 03/05/19 06:59 06:59 06:59 Intake Total 1276 50 938 Output Total 1295 1330 245 Balance -19 -1280 693 Weight 49.5 kg 49.5 kg General appearance: PRESENT: no acute distress, thin, well-developed Head exam: PRESENT: atraumatic, normocephalic Eye exam: PRESENT: conjunctiva pink, EOMI, PERRLA. ABSENT: scleral icterus Ear exam: PRESENT: normal external ear exam Mouth exam: PRESENT: moist, tongue midline Neck exam: ABSENT: carotid bruit, JVD, lymphadenopathy, thyromegaly Respiratory exam: PRESENT: decreased breath sounds - throughout; poor inspiratation, prolonged expiratory phas, rhonchi, symmetrical, tachypnea, other - AVAPS dependant. ABSENT: rales, wheezes Cardiovascular exam: PRESENT: RRR, +S1, +S2, tachycardia. ABSENT: diastolic murmur, rubs, systolic murmur Pulses: PRESENT: normal dorsalis pedis pul Vascular exam: PRESENT: normal capillary refill GI/Abdominal exam: PRESENT: normal bowel sounds, soft. ABSENT: distended, guarding, mass, organolmegaly, rebound, tenderness Rectal exam: PRESENT: deferred Extremities exam: PRESENT: full ROM. ABSENT: calf tenderness, clubbing, pedal edema Neurological exam: PRESENT: CN II-XII grossly intact. ABSENT: motor sensory deficit Skin exam: PRESENT: dry, intact, warm. ABSENT: cyanosis, rash Results Laboratory Results: 03/04/19 03:44 03/04/19 03:44 03/03/19 03/03/19 03/03/19 12:31 14:45 22:12 WBC RBC Hgb Hct MCV MCH MCHC RDW Plt Count Seg Neutrophils % Lymphocytes % Monocytes % Eosinophils % Basophils % Absolute Neutrophils Absolute Lymphocytes Absolute Monocytes Absolute Eosinophils Absolute Basophils Carbonic Acid 2.72 H 2.60 H 2.34 H HCO3/H2CO3 Ratio 16:1 16:1 17:1 ABG pH 7.31 L 7.32 L 7.35 ABG pCO2 90.2 H* 86.4 H* 77.8 H* ABG pO2 74.7 L 63.7 L 67.9 L ABG HCO3 44.4 H 43.1 H 41.9 H ABG O2 Saturation 92.8 L 89.2 L 91.7 L ABG Base Excess 13.9 12.6 12.8 FiO2 45% 45% 40% Sodium Potassium Chloride Carbon Dioxide Anion Gap BUN Creatinine Est GFR ( Amer) Est GFR (Non-Af Amer) Glucose Calcium Total Bilirubin AST ALT Alkaline Phosphatase Total Protein Albumin 03/04/19 03/04/19 03/04/19 03:44 03:44 05:25 WBC 6.0 RBC 4.47 Hgb 13.2 Hct 41.4 MCV 92 MCH 29.4 MCHC 31.9 L RDW 15.0 H Plt Count 151 Seg Neutrophils % 88.6 H Lymphocytes % 5.1 L Monocytes % 6.2 Eosinophils % 0.0 Basophils % 0.1 Absolute Neutrophils 5.3 Absolute Lymphocytes 0.3 L Absolute Monocytes 0.4 Absolute Eosinophils 0.0 Absolute Basophils 0.0 Carbonic Acid 2.55 H HCO3/H2CO3 Ratio 16:1 ABG pH 7.32 L ABG pCO2 84.8 H* ABG pO2 42.6 L ABG HCO3 42.3 H ABG O2 Saturation 71.2 L ABG Base Excess 12.5 FiO2 40% Sodium 146.3 H Potassium 4.2 Chloride 99 Carbon Dioxide 41 H* Anion Gap 6 BUN 35 H Creatinine 0.26 L Est GFR ( Amer) > 60 Est GFR (Non-Af Amer) > 60 Glucose 115 H Calcium 8.7 Total Bilirubin 0.5 AST 27 ALT 42 Alkaline Phosphatase 75 Total Protein 5.9 L Albumin 3.3 L 03/04/19 09:40 WBC RBC Hgb Hct MCV MCH MCHC RDW Plt Count Seg Neutrophils % Lymphocytes % Monocytes % Eosinophils % Basophils % Absolute Neutrophils Absolute Lymphocytes Absolute Monocytes Absolute Eosinophils Absolute Basophils Carbonic Acid 2.31 H HCO3/H2CO3 Ratio 19:1 ABG pH 7.38 ABG pCO2 76.6 H* ABG pO2 74.1 L ABG HCO3 44.1 H ABG O2 Saturation 93.9 L ABG Base Excess 14.6 FiO2 40% Sodium Potassium Chloride Carbon Dioxide Anion Gap BUN Creatinine Est GFR ( Amer) Est GFR (Non-Af Amer) Glucose Calcium Total Bilirubin AST ALT Alkaline Phosphatase Total Protein Albumin 02/28/19 12:50 Tracheal Aspirate Gram Stain - Final 02/28/19 12:50 Tracheal Aspirate Sputum Culture - Final Streptococcus Pneumoniae Normal Celia 02/28/19 02/28/19 00:00 00:00 Troponin I < 0.012 NT-Pro-B Natriuret Pep 54 Impressions: Chest X-Ray 03/03/19 06:00 IMPRESSION: Interval extubation. Assessment and Plan - Diagnosis (1) Acute on chronic respiratory failure with hypoxia and hypercapnia Is this a current diagnosis for this admission?: Yes Plan: Critical; unchanged. Patient has been extubated. ABG stable: 7.38/76.6/74.1/44.1 Continues to have tachycardia and tachypnea. Blood cultures have no growth at 4 days. Sputum cultures strep pneumo Patient is admitted to ICU. Dr. Valentine is consulted for COPD exacerbation. Continue scheduled and as needed nebulizer treatments. Continue IV Rocephin for treatment of Streptococcus pneumoniae Increase IV Solu-medrol to 40 mg q 6 hours. Spoke with patient and ; both indicate that she wishes to be reintubated if necessary. (2) COPD exacerbation Is this a current diagnosis for this admission?: Yes Plan: Evaluation and management as above. (3) Allergic sinusitis Is this a current diagnosis for this admission?: Yes Plan: Flonase and chlorpheniramine. (4) Protein calorie malnutrition Is this a current diagnosis for this admission?: Yes Plan: web services manager is consulted. Will start clear liquids; patient will require nutritional supplement (Boost/ensure) once able to safely advance. (5) Sinus tachycardia Is this a current diagnosis for this admission?: Yes Plan: Secondary to #1 IV diltiazem 5 mg every 6 hours while not tolerating p.o. IV Lopressor 5 mg every 6 hours as needed for HR >120 IV Ativan 0.5 mg every 2 hours as needed for anxiety/agitation. Continue to monitor on continuous cardiac telemetry. - Time Time Spent with patient: 25-34 minutes Medications reviewed and adjusted accordingly: Yes
[2019-03-05] MEDS: IPRATROPIUM/ALBUTEROL 0.5-2.5 MG/3 ML AMPUL NEB SCH ×4 (01:46→20:03)
[2019-03-05 04:13] LABS: HEMATOCRIT 39.8 % (36.0-47.0); HEMOGLOBIN 12.9 g/dL (12.0-15.5); MEAN CORPUSCULAR HGB CONC 32.3 g/dL (32.0-36.0); MEAN CORPUSCULAR VOLUME 93 fl (80-97); PLATELET COUNT 157 10^3/uL (150-450); RED BLOOD COUNT 4.29 10^6/uL (3.72-5.28); RED CELL DISTRIBUTION WIDTH 15.2 % (11.5-14.0); WHITE BLOOD COUNT 9.7 10^3/uL (4.0-10.5)
[2019-03-05 04:32] LABS: ANION GAP 7 (5-19); BLOOD UREA NITROGEN 34 mg/dL (7-20); CALCIUM 8.5 mg/dL (8.4-10.2); CARBON DIOXIDE 37 mmol/L (22-30); CHLORIDE 101 mmol/L (98-107); GLUCOSE 104 mg/dL (75-110); POTASSIUM 3.7 mmol/L (3.6-5.0); SODIUM 144.9 mmol/L (137-145)
[2019-03-05 04:47] LABS: ARTERIAL BLOOD BASE EXCESS 8.5 mmol/L; ARTERIAL BLOOD H2CO3 2.15 mmol/L (1.05-1.35); ARTERIAL BLOOD HCO3 37.1 mmol/L (20-24); ARTERIAL BLOOD PH 7.33 (7.35-7.45); ARTERIAL BLOOD TOTAL CO2 39.3 mmol/L (21-25)
[2019-03-05 04:51] LABS: ARTERIAL BLOOD FIO2 40%
[2019-03-05 04:52] LABS: ARTERIAL BLOOD PCO2 71.5 mmHg (35-45)
[2019-03-05] MEDS: METHYLPREDNISOLONE INJ 40 MG/1 ML SDV IV SCH ×4 (05:05→23:00)
[2019-03-05] MEDS: DILTIAZEM HCL INJ 25 MG/5 ML VIAL IV SCH ×5 (05:05→21:26)
[2019-03-05] MEDS: HEPARIN SOD (PORCINE) 5,000 UNIT/ML 1 ML SYRINGE SUBCUT SCH ×3 (05:08→21:26)
[2019-03-05] MEDS: HYDRALAZINE HCL INJ/PF 20 MG/1 ML SDV IV PRN ×2 (07:18→15:48)
[2019-03-05] MEDS: LORAZEPAM INJ 2 MG/1 ML VIAL IV PRN ×3 (07:23→22:57)
[2019-03-05] MEDS: CEFTRIAXONE SODIUM 1,000 MG in DEXTROSE 5%-WATER 50 ML IV SCH (09:16)
[2019-03-05] MEDS: PANTOPRAZOLE SODIUM 40 MG VIAL IV SCH (09:16)
[2019-03-05] MEDS: FLUTICASONE NASAL SPRAY 50 MCG/SPRY 120 SPRAY/16 GM NASL SCH ×2 (12:20→21:27)
[2019-03-05] MEDS: NORMAL SALINE 1000 ML 1,000 ML IV PRN (15:21)
--- NOTE | 2019-03-05 18:03 | PDOC PROGRESS REPORT ---
Subjective Progress Note for:: 03/05/19 Subjective:: The patient is a 63-year-old female with a past medical history of emphysema; home O2 dependent with trilogy, hypertension, hyperlipidemia, and GERD who was admitted by the SENIOR RECRUITER early this morning for acute respiratory failure with hypercapnia and hypoxia secondary to COPD exacerbation. Patient was seen on morning rounds. The patient is in the ICU; extubated 03/02/19 and now on AVAPS. She is sleeping, but wakes easily when I say her name. She tells me she feels better and that her breathing is improved, though she appears quite fatigued this morning but not noted to be in acute distress. She denies fevers, chest pain, abdominal pain, nausea; declines to eat stating that she has a poor appetite. She has no questions or concerns at this time. No concerns per nursing. Patient and confirmed that she would want to be re-intubated if necessary. Reason For Visit: COPD EXACERBATION,ACUTE BRONCHITIS Physical Exam Vital Signs: Temp Pulse Resp BP Pulse Ox 98.8 F 111 H 22 H 152/96 H 99 03/05/19 16:00 03/05/19 16:00 03/05/19 16:35 03/05/19 16:35 03/05/19 16:35 Intake & Output 03/04/19 03/05/19 03/06/19 06:59 06:59 06:59 Intake Total 50 1988 50 Output Total 1330 1545 320 Balance -1280 443 -270 Weight 49.5 kg 49.4 kg General appearance: PRESENT: no acute distress, thin, well-developed Head exam: PRESENT: atraumatic, normocephalic Eye exam: PRESENT: conjunctiva pink, EOMI, PERRLA. ABSENT: scleral icterus Ear exam: PRESENT: normal external ear exam Mouth exam: PRESENT: moist, tongue midline Neck exam: ABSENT: carotid bruit, JVD, lymphadenopathy, thyromegaly Respiratory exam: PRESENT: clear to auscultation shai, decreased breath sounds - throughout, prolonged expiratory phas, rhonchi, symmetrical, tachypnea, other - AVAPS dependant. ABSENT: rales, wheezes Cardiovascular exam: PRESENT: RRR, +S1, +S2. ABSENT: diastolic murmur, rubs, systolic murmur Pulses: PRESENT: normal dorsalis pedis pul Vascular exam: PRESENT: normal capillary refill GI/Abdominal exam: PRESENT: normal bowel sounds, soft. ABSENT: distended, guarding, mass, organolmegaly, rebound, tenderness Rectal exam: PRESENT: deferred Extremities exam: PRESENT: full ROM. ABSENT: calf tenderness, clubbing, pedal edema Neurological exam: PRESENT: alert, awake, oriented to person, oriented to place, oriented to situation, CN II-XII grossly intact, other - fatigued. ABSENT: motor sensory deficit Psychiatric exam: PRESENT: appropriate affect, normal mood. ABSENT: homicidal ideation, suicidal ideation Skin exam: PRESENT: dry, intact, warm. ABSENT: cyanosis, rash Results Laboratory Results: 03/05/19 03:38 03/05/19 03:38 03/05/19 03/05/19 03/05/19 03:38 03:38 04:30 WBC 9.7 RBC 4.29 Hgb 12.9 Hct 39.8 MCV 93 MCH 30.0 MCHC 32.3 RDW 15.2 H Plt Count 157 Carbonic Acid 2.15 H HCO3/H2CO3 Ratio 17:1 ABG pH 7.33 L ABG pCO2 71.5 H* ABG pO2 77.0 L ABG HCO3 37.1 H ABG O2 Saturation 94.0 ABG Base Excess 8.5 FiO2 40% Sodium 144.9 Potassium 3.7 Chloride 101 Carbon Dioxide 37 H Anion Gap 7 BUN 34 H Creatinine 0.29 L Est GFR ( Amer) > 60 Est GFR (Non-Af Amer) > 60 Glucose 104 Calcium 8.5 02/28/19 00:40 Blood Blood Culture - Final NO GROWTH IN 5 DAYS 02/28/19 00:00 Blood Blood Culture - Final NO GROWTH IN 5 DAYS 02/28/19 02/28/19 00:00 00:00 Troponin I < 0.012 NT-Pro-B Natriuret Pep 54 Impressions: Chest X-Ray 03/03/19 06:00 IMPRESSION: Interval extubation. Assessment and Plan - Diagnosis (1) Acute on chronic respiratory failure with hypoxia and hypercapnia Is this a current diagnosis for this admission?: Yes Plan: Critical; unchanged. Patient extubated 3 days ago; remains AVAPS dependant. Continues to have tachycardia and tachypnea. ABG stable: 7.33/71.5/77.0/39.3 Blood cultures have no growth at 5 days. Sputum cultures strep pneumo Patient is admitted to ICU. Dr. Valentine is consulted for COPD exacerbation. Continue scheduled and as needed nebulizer treatments. Continue IV Rocephin for treatment of Streptococcus pneumoniae Continue IV Solu-medrol to 40 mg q 6 hours. Spoke with patient and ; both indicate that she wishes to be reintubated if necessary. (2) COPD exacerbation Is this a current diagnosis for this admission?: Yes Plan: Evaluation and management as above. (3) Allergic sinusitis Is this a current diagnosis for this admission?: Yes Plan: Flonase and chlorpheniramine. (4) Protein calorie malnutrition Is this a current diagnosis for this admission?: Yes Plan: pc analyst is consulted. Will start clear liquids; patient will require nutritional supplement (Boost/ensure) once able to safely advance. (5) Sinus tachycardia Is this a current diagnosis for this admission?: Yes Plan: Secondary to #1 IV diltiazem 5 mg every 6 hours while not tolerating p.o. IV Lopressor 5 mg every 6 hours as needed for HR >120 IV Ativan 0.5 mg every 2 hours as needed for anxiety/agitation. Continue to monitor on continuous cardiac telemetry. - Time Time Spent with patient: 15-24 minutes Medications reviewed and adjusted accordingly: Yes
[2019-03-06] MEDS: NORMAL SALINE 1000 ML 1,000 ML IV PRN ×3 (00:07→16:52)
[2019-03-06] MEDS: DILTIAZEM HCL INJ 25 MG/5 ML VIAL IV SCH ×6 (01:06→21:34)
[2019-03-06] MEDS: LORAZEPAM INJ 2 MG/1 ML VIAL IV PRN ×5 (01:07→21:35)
[2019-03-06] MEDS: IPRATROPIUM/ALBUTEROL 0.5-2.5 MG/3 ML AMPUL NEB SCH ×4 (01:25→19:53)
[2019-03-06 04:24] LABS: HEMATOCRIT 38.1 % (36.0-47.0); HEMOGLOBIN 12.3 g/dL (12.0-15.5); MEAN CORPUSCULAR HEMOGLOBIN 29.6 pg (27.0-33.4); MEAN CORPUSCULAR HGB CONC 32.3 g/dL (32.0-36.0); MEAN CORPUSCULAR VOLUME 92 fl (80-97); PLATELET COUNT 151 10^3/uL (150-450); RED BLOOD COUNT 4.15 10^6/uL (3.72-5.28); RED CELL DISTRIBUTION WIDTH 14.8 % (11.5-14.0)
[2019-03-06 04:47] LABS: ARTERIAL BLOOD BASE EXCESS 7.1 mmol/L; ARTERIAL BLOOD H2CO3 1.97 mmol/L (1.05-1.35); ARTERIAL BLOOD HCO3 34.9 mmol/L (20-24); ARTERIAL BLOOD O2 SATURATION 93.1 % (94-98); ARTERIAL BLOOD PCO2 65.4 mmHg (35-45); ARTERIAL BLOOD PH 7.35 (7.35-7.45); ARTERIAL BLOOD PO2 71.6 mmHg (80-100); ARTERIAL BLOOD TOTAL CO2 36.9 mmol/L (21-25)
[2019-03-06] MEDS: HYDRALAZINE HCL INJ/PF 20 MG/1 ML SDV IV PRN ×3 (04:47→18:49)
[2019-03-06 04:50] LABS: ARTERIAL BLOOD FIO2 35%
[2019-03-06 04:56] LABS: ABSOLUTE LYMPHOCYTES# (MANUAL) 0.4 10^3/uL (0.5-4.7); ABSOLUTE MONOCYTES # (MANUAL) 0.5 10^3/uL (0.1-1.4); ABSOLUTE NEUTROPHILS# (MANUAL) 4.2 10^3/uL (1.7-8.2); BASOPHILS % (MANUAL) 0 % (0-2); EOSINOPHILS % (MANUAL) 0 % (0-6); LYMPHOCYTES % (MANUAL) 7 % (13-45); MONOCYTES % (MANUAL) 10 % (3-13); SEGMENTED NEUTROPHILS % (MAN) 83 % (42-78); TOTAL CELLS COUNTED 100
[2019-03-06 04:57] LABS: PLATELET COMMENT ADEQUATE
[2019-03-06 04:58] LABS: ANISOCYTOSIS SLIGHT; STOMATOCYTES 1+
[2019-03-06 05:02] LABS: ALANINE AMINOTRANSFERASE 35 U/L (9-52); ALBUMIN 3.1 g/dL (3.5-5.0); ALKALINE PHOSPHATASE 56 U/L (38-126); ANION GAP 8 (5-19); ASPARTATE AMINO TRANSFERASE 22 U/L (14-36); BILIRUBIN,DIRECT 0.3 mg/dL (0.0-0.4); BILIRUBIN,TOTAL 0.5 mg/dL (0.2-1.3); BLOOD UREA NITROGEN 25 mg/dL (7-20); CALCIUM 8.7 mg/dL (8.4-10.2); CARBON DIOXIDE 38 mmol/L (22-30); CHLORIDE 100 mmol/L (98-107); GLUCOSE 100 mg/dL (75-110); PHOSPHORUS 3.2 mg/dL (2.5-4.5); SODIUM 145.5 mmol/L (137-145); TOTAL PROTEIN 5.3 g/dL (6.3-8.2)
[2019-03-06] MEDS: HEPARIN SOD (PORCINE) 5,000 UNIT/ML 1 ML SYRINGE SUBCUT SCH ×3 (05:11→21:35)
[2019-03-06] MEDS: METHYLPREDNISOLONE INJ 40 MG/1 ML SDV IV SCH ×3 (05:11→18:24)
--- NOTE | 2019-03-06 08:25 | RADIOLOGY REPORT (SQ) ---
EXAM DESCRIPTION: CHEST SINGLE VIEW COMPLETED DATE/TIME: 03/06/2019 6:28 am REASON FOR STUDY: resp failure COMPARISON: CT angio chest 09/21/2018 Chest films 02/28/2019, 03/01/2019, 03/03/2019 EXAM PARAMETERS: NUMBER OF VIEWS: One view. TECHNIQUE: Single frontal radiographic view of the chest acquired. RADIATION DOSE: NA LIMITATIONS: None. FINDINGS: LUNGS AND PLEURA: Hyperinflation and hyperlucency from obstructive disease. Old calcified granuloma left upper lobe. No acute infiltrates. No pleural effusion or pneumothorax MEDIASTINUM AND HILAR STRUCTURES: No masses. Contour normal. HEART AND VASCULAR STRUCTURES: Heart normal in size. Normal vasculature. BONES: No acute findings. HARDWARE: None in the chest. OTHER: No other significant finding. IMPRESSION: Obstructive lung disease. No acute findings TECHNICAL DOCUMENTATION: JOB ID: [id number] [employer]- All Rights Reserved Reading location - IP/workstation name: [email or web address]
--- NOTE | 2019-03-06 09:03 | PDOC PROGRESS REPORT ---
Subjective Progress Note for:: 03/02/19 Subjective:: patient currently intubated and sedated, will plan to extubate to bipap today Reason For Visit: COPD EXACERBATION,ACUTE BRONCHITIS Physical Exam Vital Signs: Temp Pulse Resp BP Pulse Ox 98.2 F 106 H 23 H 159/100 H 94 03/06/19 08:00 03/06/19 08:42 03/06/19 08:42 03/06/19 08:00 03/06/19 08:42 Intake & Output 03/05/19 03/06/19 03/07/19 06:59 06:59 06:59 Intake Total 1987 1050 1000 Output Total 1545 1520 150 Balance 443 -470 850 Weight 49.4 kg 49.5 kg General appearance: PRESENT: no acute distress, thin Head exam: PRESENT: atraumatic Eye exam: PRESENT: conjunctiva pink, EOMI, PERRLA. ABSENT: scleral icterus Ear exam: PRESENT: normal external ear exam Mouth exam: PRESENT: moist, tongue midline Neck exam: ABSENT: carotid bruit, JVD, lymphadenopathy, thyromegaly Respiratory exam: PRESENT: decreased breath sounds, prolonged expiratory phas. ABSENT: rales, rhonchi, wheezes Cardiovascular exam: PRESENT: RRR Pulses: PRESENT: normal radial pulses Vascular exam: PRESENT: normal capillary refill GI/Abdominal exam: PRESENT: normal bowel sounds, soft. ABSENT: distended, guarding, mass, organolmegaly, rebound, tenderness Extremities exam: PRESENT: full ROM. ABSENT: calf tenderness, clubbing, pedal edema Neurological exam: PRESENT: awake Psychiatric exam: PRESENT: normal mood Skin exam: PRESENT: dry, intact, warm. ABSENT: cyanosis, rash Results Laboratory Results: 03/06/19 04:14 03/06/19 04:14 03/06/19 03/06/19 03/06/19 04:14 04:14 04:21 WBC 5.0 RBC 4.15 Hgb 12.3 Hct 38.1 MCV 92 MCH 29.6 MCHC 32.3 RDW 14.8 H Plt Count 151 Seg Neutrophils % Not Reportable Lymphocytes % Not Reportable Monocytes % Not Reportable Eosinophils % Not Reportable Basophils % Not Reportable Absolute Neutrophils Not Reportable Absolute Lymphocytes Not Reportable Absolute Monocytes Not Reportable Absolute Eosinophils Not Reportable Absolute Basophils Not Reportable Carbonic Acid 1.97 H HCO3/H2CO3 Ratio 17:1 ABG pH 7.35 ABG pCO2 65.4 H ABG pO2 71.6 L ABG HCO3 34.9 H ABG O2 Saturation 93.1 L ABG Base Excess 7.1 FiO2 35% Sodium 145.5 H Potassium 4.0 Chloride 100 Carbon Dioxide 38 H Anion Gap 8 BUN 25 H Creatinine 0.25 L Est GFR ( Amer) > 60 Est GFR (Non-Af Amer) > 60 Glucose 100 Calcium 8.7 Phosphorus 3.2 Magnesium 1.9 Total Bilirubin 0.5 AST 22 ALT 35 Alkaline Phosphatase 56 Total Protein 5.3 L Albumin 3.1 L 02/28/19 02/28/19 00:00 00:00 Troponin I < 0.012 NT-Pro-B Natriuret Pep 54 Impressions: Chest X-Ray 03/06/19 06:00 IMPRESSION: Obstructive lung disease. No acute findings Assessment & Plan - Diagnosis (1) Acute on chronic respiratory failure with hypoxia and hypercapnia Is this a current diagnosis for this admission?: Yes Plan: patient currently on mechanical ventilation will plan to extubate to bipap today (2) Emphysema Qualifiers: Emphysema type: centrilobular Qualified Code(s): J43.2 - Centrilobular emphysema Is this a current diagnosis for this admission?: Yes Plan: Long acting muscarinic agent plus long acting beta agonist plus rescue albuterol (3) Pulmonary cachexia due to chronic obstructive pulmonary disease Is this a current diagnosis for this admission?: Yes Plan: Enteral feeding plus beneprotein 3 times a day - Time Total Critical Time (Minutes): 40 Inpatient Scribe Statement - . Entered by Clotilde Adames, acting as scribe for .
[2019-03-06] MEDS: CEFTRIAXONE SODIUM 1,000 MG in DEXTROSE 5%-WATER 50 ML IV SCH (09:23)
[2019-03-06] MEDS: FLUTICASONE NASAL SPRAY 50 MCG/SPRY 120 SPRAY/16 GM NASL SCH ×2 (09:24→21:34)
--- NOTE | 2019-03-06 12:32 | PDOC TRANSFER SUMMARY ---
General Admission Date/PCP: 02/28/19 02:24 LINDA SANDERSON, DO Transfer Date: 03/06/19 Resuscitation Status: Full Code - Transfer Diagnosis (1) Acute on chronic respiratory failure with hypoxia and hypercapnia Is this a current diagnosis for this admission?: Yes (2) COPD exacerbation Is this a current diagnosis for this admission?: Yes (3) Allergic sinusitis Is this a current diagnosis for this admission?: Yes (4) Sinus tachycardia Is this a current diagnosis for this admission?: Yes (5) Protein-energy malnutrition Is this a current diagnosis for this admission?: Yes Diagnosis Summary: Moderate - Transfer Medications Home Medications: Atorvastatin Calcium [Lipitor 20 mg Tablet] 20 mg PO QHS 09/19/18 Calcium Carbonate/Vitamin D3 [Oyster Shell 500-Vit D3 200 Tb] 1 tab PO DAILY 09/19/18 Cholecalciferol (Vitamin D3) [Vitamin D3 1000 Unit Tablet] 1,000 unit PO DAILY 09/19/18 Fluticasone/Salmeterol [Advair 250-50 Diskus 14 Dose/Diskus] 1 puff IH Q12 09/19/18 Multivitamin [Tab-A-Lefty (Multiple Vitamin) Tablet] 1 tab PO DAILY 09/19/18 Omeprazole 40 mg PO DAILY 09/19/18 Prednisone [Deltasone 5 mg Tablet] 15 mg PO DAILY 02/28/19 Tiotropium [place] [Spiriva Respimat] 1 puff IH DAILY 02/28/19 Transfer Medications: Current Medications Acetaminophen (Tylenol 325 Mg Tablet) 650 mg NG Q4HP PRN PRN Reason: pain or temp greater than 101F Stop: 03/30/19 01:57 Last Admin: 02/28/19 20:01 Dose: 650 mg Documented by: Albuterol/Ipratropium (Duoneb 3 Ml Ampul) 3 ml NEB [id number] PRN PRN Reason: SHORTNESS OF BREATH Stop: 03/30/19 01:57 Albuterol/Ipratropium (Duoneb 3 Ml Ampul) 3 ml NEB RTQ6 VLADISLAV Stop: 03/30/19 01:59 Last Admin: 03/06/19 08:41 Dose: 3 ml Documented by: Diltiazem HCl (Cardizem Inj 25 Mg/5 Ml Vial) 5 mg IV Q4 VLADISLAV Stop: 04/04/19 09:59 Last Admin: 03/06/19 09:22 Dose: 5 mg Documented by: Fluticasone Propionate (Flonase Nasal [place] 50 Mcg/[place] 16 Gm) 2 spray NASL Q12 [facility] Stop: 03/30/19 09:59 Last Admin: 03/06/19 09:24 Dose: 2 sprays Documented by: Heparin Sodium (Porcine) (Heparin Inj 5,000 Units/Ml 1 Ml Syringe) 5,000 unit SUBCUT Q8 [facility] Stop: 03/30/19 05:59 Last Admin: 03/06/19 05:11 Dose: 5,000 unit Documented by: Hydralazine HCl (Apresoline Inj/Pf 20 Mg/1 Ml Sdv) 10 mg IV Q6HP PRN PRN Reason: Sbp>160 Stop: 03/30/19 01:56 Last Admin: 03/06/19 04:47 Dose: 10 mg Documented by: Propofol (Diprivan Rtu 1000 Mg/100 Ml Inf.Bottle) 1,000 mg in 100 mls @ 1.443 mls/hr IV CONTINUOUS PRN; Protocol PRN Reason: THIS MED IS NOT "PRN" Stop: 03/30/19 11:43 Last Titration: 03/02/19 09:00 Dose: 0 mcg/kg/min, 0 mls/hr Documented by: Ceftriaxone Sodium 1,000 mg/ (Dextrose) 50 mls @ 100 mls/hr IV DAILY [facility] Stop: 03/09/19 12:59 Last Infusion: 03/06/19 12:21 Dose: Infused Documented by: Sodium Chloride (Nacl 0.9% 1000 Ml Iv Soln) 1,000 mls @ 125 mls/hr IV CONTINUOUS PRN PRN Reason: THIS MED IS NOT "PRN" Stop: 04/01/19 12:45 Last Admin: 03/06/19 08:22 Dose: 125 mls/hr Documented by: Lorazepam (Ativan Inj 2 Mg/1 Ml Vial) 0.5 mg IV Q2HP PRN PRN Reason: ANXIETY/AGITATION Stop: 03/08/19 10:06 Last Admin: 03/06/19 08:28 Dose: 0.5 mg Documented by: Methylprednisolone Sodium Succinate (Solu-Medrol Inj/Pf 40 Mg/1 Ml Sdv) 40 mg IV Q6 [facility] Stop: 04/02/19 17:59 Last Admin: 03/06/19 05:11 Dose: 40 mg Documented by: Metoprolol Tartrate (Lopressor Inj/Pf 5 Mg/5 Ml Sdv) 5 mg IV Q6HP PRN PRN Reason: HR sustained >120 Stop: 04/01/19 17:27 Last Admin: 03/04/19 17:17 Dose: 5 mg Documented by: Pharmacy Profile Note (Medication Communication Order) 1 each [facility] .NOTICE NR Stop: 03/30/19 11:29 Sodium Chloride (Saline Flush 2.5 Ml Monoject Prefil Syrin) 2.5 ml IV Q8 VLADISLAV Stop: 03/30/19 05:59 Last Admin: 03/06/19 05:12 Dose: 2.5 ml Documented by: - Allergies Allergies/Adverse Reactions: clindamycin [Clindamycin] Allergy (Severe, Verified 02/13/17 09:05) "Throat Swells Shut" Hospital Course Hospital Course: NOE CLAROS is a 63 year old female with a past medical history of home oxygen dependent COPD and generalized debility. She presents after found by EMS with altered mental status and oxygen saturations in the 40s she received supplemental oxygen, BiPAP and steroids on route. In the emergency department she is found to have lethargy and ABG reveals hypercapnic respiratory failure. She is referred to the hospitalist for admission. Initially patient admitted to IMCU where she had been treated with BiPAP bronchodilator and steroid but she failed to respond to that and patient transferred to ICU where she was intubated emergently. After 2 days patient extubated on 03/02/2019. Currently patient is on BiPAP and her vital signs and labs are unremarkable. Patient is going to transfer to [facility] for long-term care. Physical Exam Vital Signs: Temp Pulse Resp BP Pulse Ox 98.2 F 104 H 25 H 157/97 H 94 03/06/19 08:00 03/06/19 10:00 03/06/19 12:17 03/06/19 11:35 03/06/19 12:17 Intake & Output 03/05/19 03/06/19 03/07/19 06:59 06:59 06:59 Intake Total 1988 1050 1050 Output Total 1544 1520 355 Balance 443 -470 695 Weight 49.4 kg 49.5 kg General appearance: PRESENT: mild distress Eye exam: PRESENT: conjunctiva pink Neck exam: ABSENT: carotid bruit, JVD, lymphadenopathy, thyromegaly Respiratory exam: PRESENT: crackles, decreased breath sounds, wheezes Cardiovascular exam: PRESENT: RRR. ABSENT: diastolic murmur, rubs, systolic murmur Neurological exam: PRESENT: alert, awake Results Laboratory Results: 03/06/19 04:14 03/06/19 04:14 03/06/19 03/06/19 03/06/19 04:14 04:14 04:21 WBC 5.0 RBC 4.15 Hgb 12.3 Hct 38.1 MCV 92 MCH 29.6 MCHC 32.3 RDW 14.8 H Plt Count 151 Seg Neutrophils % Not Reportable Lymphocytes % Not Reportable Monocytes % Not Reportable Eosinophils % Not Reportable Basophils % Not Reportable Absolute Neutrophils Not Reportable Absolute Lymphocytes Not Reportable Absolute Monocytes Not Reportable Absolute Eosinophils Not Reportable Absolute Basophils Not Reportable Carbonic Acid 1.97 H HCO3/H2CO3 Ratio 17:1 ABG pH 7.35 ABG pCO2 65.4 H ABG pO2 71.6 L ABG HCO3 34.9 H ABG O2 Saturation 93.1 L ABG Base Excess 7.1 FiO2 35% Sodium 145.5 H Potassium 4.0 Chloride 100 Carbon Dioxide 38 H Anion Gap 8 BUN 25 H Creatinine 0.25 L Est GFR ( Amer) > 60 Est GFR (Non-Af Amer) > 60 Glucose 100 Calcium 8.7 Phosphorus 3.2 Magnesium 1.9 Total Bilirubin 0.5 AST 22 ALT 35 Alkaline Phosphatase 56 Total Protein 5.3 L Albumin 3.1 L 02/28/19 02/28/19 00:00 00:00 Troponin I < 0.012 NT-Pro-B Natriuret Pep 54 Impressions: Chest X-Ray 03/06/19 06:00 IMPRESSION: Obstructive lung disease. No acute findings
[2019-03-07] MEDS: METHYLPREDNISOLONE INJ 40 MG/1 ML SDV IV SCH ×2 (00:36→05:10)
[2019-03-07] MEDS: HYDRALAZINE HCL INJ/PF 20 MG/1 ML SDV IV PRN (00:50)
[2019-03-07] MEDS: DILTIAZEM HCL INJ 25 MG/5 ML VIAL IV SCH ×3 (01:39→10:20)
[2019-03-07] MEDS: IPRATROPIUM/ALBUTEROL 0.5-2.5 MG/3 ML AMPUL NEB SCH ×2 (01:58→08:23)
[2019-03-07 04:29] LABS: ARTERIAL BLOOD H2CO3 2.29 mmol/L (1.05-1.35); ARTERIAL BLOOD HCO3 38.2 mmol/L (20-24); ARTERIAL BLOOD PH 7.32 (7.35-7.45); ARTERIAL BLOOD PO2 91.5 mmHg (80-100); ARTERIAL BLOOD TOTAL CO2 40.5 mmol/L (21-25)
[2019-03-07 04:32] LABS: HEMATOCRIT 39.2 % (36.0-47.0); HEMOGLOBIN 12.7 g/dL (12.0-15.5); MEAN CORPUSCULAR HEMOGLOBIN 29.5 pg (27.0-33.4); MEAN CORPUSCULAR HGB CONC 32.3 g/dL (32.0-36.0); MEAN CORPUSCULAR VOLUME 91 fl (80-97); PLATELET COUNT 156 10^3/uL (150-450); RED BLOOD COUNT 4.29 10^6/uL (3.72-5.28); RED CELL DISTRIBUTION WIDTH 14.9 % (11.5-14.0); WHITE BLOOD COUNT 4.6 10^3/uL (4.0-10.5)
[2019-03-07 04:33] LABS: ARTERIAL BLOOD FIO2 45%
[2019-03-07 04:49] LABS: ANION GAP 8 (5-19); BLOOD UREA NITROGEN 25 mg/dL (7-20); CALCIUM 8.5 mg/dL (8.4-10.2); CARBON DIOXIDE 37 mmol/L (22-30); CHLORIDE 98 mmol/L (98-107); GLUCOSE 111 mg/dL (75-110); POTASSIUM 3.7 mmol/L (3.6-5.0)
[2019-03-07] MEDS: HEPARIN SOD (PORCINE) 5,000 UNIT/ML 1 ML SYRINGE SUBCUT SCH (05:08)
[2019-03-07] MEDS: NORMAL SALINE 1000 ML 1,000 ML IV PRN (05:10)
[2019-03-07 06:18] LABS: ABSOLUTE LYMPHOCYTES# (MANUAL) 0.1 10^3/uL (0.5-4.7); ABSOLUTE MONOCYTES # (MANUAL) 0.2 10^3/uL (0.1-1.4); ABSOLUTE NEUTROPHILS# (MANUAL) 4.3 10^3/uL (1.7-8.2); BAND NEUTROPHILS % (MANUAL) 2 % (3-5); BASOPHILS % (MANUAL) 0 % (0-2); EOSINOPHILS % (MANUAL) 0 % (0-6); LYMPHOCYTES % (MANUAL) 1 % (13-45); MONOCYTES % (MANUAL) 4 % (3-13); SEGMENTED NEUTROPHILS % (MAN) 92 % (42-78); TOTAL CELLS COUNTED 100
[2019-03-07 06:20] LABS: PLATELET COMMENT ADEQUATE; RBC MORPHOLOGY COMMENT NORMO-CYTIC/CHROMIC
[2019-03-07] MEDS: FLUTICASONE NASAL SPRAY 50 MCG/SPRY 120 SPRAY/16 GM NASL SCH (10:19)
[2019-03-07] MEDS: CEFTRIAXONE SODIUM 1,000 MG in DEXTROSE 5%-WATER 50 ML IV SCH (10:19)
[2019-03-07 10:50] VITALS: BP 158/97
--- NOTE | 2019-03-08 07:38 | PDOC PROGRESS REPORT ---
Subjective Progress Note for:: 03/03/19 Subjective:: Patient resting on bipap Reason For Visit: COPD EXACERBATION,ACUTE BRONCHITIS Physical Exam Vital Signs: Temp Pulse Resp BP Pulse Ox 98.8 F 98 24 H 158/97 H 96 03/07/19 11:05 03/07/19 11:05 03/07/19 11:05 03/07/19 11:05 03/07/19 11:05 Intake & Output 03/07/19 03/08/19 03/09/19 06:59 06:59 06:59 Intake Total 3050 50 Output Total 1520 35 Balance 1530 15 Weight 51.1 kg General appearance: PRESENT: no acute distress, cooperative, well-developed, well-nourished Head exam: PRESENT: atraumatic, normocephalic Eye exam: PRESENT: conjunctiva pink, EOMI, PERRLA. ABSENT: scleral icterus Ear exam: PRESENT: normal external ear exam Mouth exam: PRESENT: moist, tongue midline Neck exam: ABSENT: carotid bruit, JVD, lymphadenopathy, thyromegaly Respiratory exam: PRESENT: decreased breath sounds, prolonged expiratory phas, tachypnea, wheezes Cardiovascular exam: PRESENT: RRR, tachycardia. ABSENT: diastolic murmur, rubs, systolic murmur Pulses: PRESENT: normal dorsalis pedis pul Vascular exam: PRESENT: normal capillary refill GI/Abdominal exam: PRESENT: normal bowel sounds, soft. ABSENT: distended, guarding, mass, organolmegaly, rebound, tenderness Rectal exam: PRESENT: deferred Extremities exam: PRESENT: full ROM. ABSENT: calf tenderness, clubbing, pedal edema Neurological exam: PRESENT: alert, awake, oriented to person, oriented to place, oriented to time, oriented to situation, CN II-XII grossly intact. ABSENT: motor sensory deficit Psychiatric exam: PRESENT: appropriate affect, normal mood. ABSENT: homicidal ideation, suicidal ideation Skin exam: PRESENT: dry, intact, warm. ABSENT: cyanosis, rash Results Laboratory Results: 03/07/19 06:00 03/07/19 04:05 02/28/19 02/28/19 00:00 00:00 Troponin I < 0.012 NT-Pro-B Natriuret Pep 54 Impressions: Chest X-Ray 03/06/19 06:00 IMPRESSION: Obstructive lung disease. No acute findings Assessment & Plan - Diagnosis (1) Acute on chronic respiratory failure with hypoxia and hypercapnia Is this a current diagnosis for this admission?: Yes Plan: patient currently on bipap (2) Emphysema Qualifiers: Emphysema type: centrilobular Qualified Code(s): J43.2 - Centrilobular emphysema Is this a current diagnosis for this admission?: Yes Plan: Long acting muscarinic agent plus long acting beta agonist plus rescue albuterol (3) Pulmonary cachexia due to chronic obstructive pulmonary disease Is this a current diagnosis for this admission?: Yes Plan: Enteral feeding plus beneprotein 3 times a day - Time Total Critical Time (Minutes): 45 Inpatient Scribe Statement - . Entered by Clotilde Adames, acting as scribe for .
--- NOTE | 2019-03-08 07:40 | PDOC PROGRESS REPORT ---
Subjective Progress Note for:: 03/04/19 Subjective:: Patient resting on bipap Reason For Visit: COPD EXACERBATION,ACUTE BRONCHITIS Physical Exam Vital Signs: Temp Pulse Resp BP Pulse Ox 98.8 F 98 24 H 158/97 H 96 03/07/19 11:05 03/07/19 11:05 03/07/19 11:05 03/07/19 11:05 03/07/19 11:05 Intake & Output 03/07/19 03/08/19 03/09/19 06:59 06:59 06:59 Intake Total 3050 50 Output Total 1520 35 Balance 1530 15 Weight 51.1 kg General appearance: PRESENT: no acute distress, well-developed, well-nourished Head exam: PRESENT: atraumatic, normocephalic Eye exam: PRESENT: conjunctiva pink, EOMI, PERRLA. ABSENT: scleral icterus Ear exam: PRESENT: normal external ear exam Mouth exam: PRESENT: moist, tongue midline Neck exam: ABSENT: carotid bruit, JVD, lymphadenopathy, thyromegaly Respiratory exam: PRESENT: decreased breath sounds, prolonged expiratory phas, rales, rhonchi, tachypnea, wheezes Cardiovascular exam: PRESENT: RRR. ABSENT: diastolic murmur, rubs, systolic murmur Pulses: PRESENT: normal dorsalis pedis pul Vascular exam: PRESENT: normal capillary refill GI/Abdominal exam: PRESENT: normal bowel sounds, soft. ABSENT: distended, guarding, mass, organolmegaly, rebound, tenderness Rectal exam: PRESENT: deferred Extremities exam: PRESENT: full ROM. ABSENT: calf tenderness, clubbing, pedal edema Neurological exam: PRESENT: alert, awake, oriented to person, oriented to place, oriented to time, oriented to situation, CN II-XII grossly intact. ABSENT: motor sensory deficit Psychiatric exam: PRESENT: appropriate affect, normal mood. ABSENT: homicidal ideation, suicidal ideation Skin exam: PRESENT: dry, intact, warm. ABSENT: cyanosis, rash Results Laboratory Results: 03/07/19 06:00 03/07/19 04:05 02/28/19 02/28/19 00:00 00:00 Troponin I < 0.012 NT-Pro-B Natriuret Pep 54 Impressions: Chest X-Ray 03/06/19 06:00 IMPRESSION: Obstructive lung disease. No acute findings Assessment & Plan - Diagnosis (1) Acute on chronic respiratory failure with hypoxia and hypercapnia Is this a current diagnosis for this admission?: Yes Plan: patient currently on bipap (2) Emphysema Qualifiers: Emphysema type: centrilobular Qualified Code(s): J43.2 - Centrilobular emphysema Is this a current diagnosis for this admission?: Yes Plan: Long acting muscarinic agent plus long acting beta agonist plus rescue albuterol (3) Pulmonary cachexia due to chronic obstructive pulmonary disease Is this a current diagnosis for this admission?: Yes Plan: Enteral feeding plus beneprotein 3 times a day - Time Total Critical Time (Minutes): 40 Inpatient Scribe Statement - . Entered by Clotilde Adames, acting as scribe for .
--- NOTE | 2019-03-08 07:43 | PDOC PROGRESS REPORT ---
Subjective Progress Note for:: 03/05/19 Subjective:: Patient resting on bipap Reason For Visit: COPD EXACERBATION,ACUTE BRONCHITIS Physical Exam Vital Signs: Temp Pulse Resp BP Pulse Ox 98.8 F 98 24 H 158/97 H 96 03/07/19 11:05 03/07/19 11:05 03/07/19 11:05 03/07/19 11:05 03/07/19 11:05 Intake & Output 03/07/19 03/08/19 03/09/19 06:59 06:59 06:59 Intake Total 3050 50 Output Total 1520 35 Balance 1530 15 Weight 51.1 kg General appearance: PRESENT: no acute distress, well-developed, well-nourished Head exam: PRESENT: atraumatic, normocephalic Eye exam: PRESENT: conjunctiva pink, EOMI, PERRLA. ABSENT: scleral icterus Ear exam: PRESENT: normal external ear exam Mouth exam: PRESENT: moist, tongue midline Neck exam: ABSENT: carotid bruit, JVD, lymphadenopathy, thyromegaly Respiratory exam: PRESENT: decreased breath sounds, prolonged expiratory phas. ABSENT: rales, rhonchi, wheezes Cardiovascular exam: PRESENT: RRR. ABSENT: diastolic murmur, rubs, systolic murmur Pulses: PRESENT: normal dorsalis pedis pul Vascular exam: PRESENT: normal capillary refill GI/Abdominal exam: PRESENT: normal bowel sounds, soft. ABSENT: distended, guarding, mass, organolmegaly, rebound, tenderness Rectal exam: PRESENT: deferred Extremities exam: PRESENT: full ROM. ABSENT: calf tenderness, clubbing, pedal edema Neurological exam: PRESENT: alert, awake, oriented to person, oriented to place, oriented to time, oriented to situation, CN II-XII grossly intact. ABSENT: motor sensory deficit Psychiatric exam: PRESENT: appropriate affect, normal mood. ABSENT: homicidal ideation, suicidal ideation Skin exam: PRESENT: dry, intact, warm. ABSENT: cyanosis, rash Results Laboratory Results: 03/07/19 06:00 03/07/19 04:05 02/28/19 02/28/19 00:00 00:00 Troponin I < 0.012 NT-Pro-B Natriuret Pep 54 Impressions: Chest X-Ray 03/06/19 06:00 IMPRESSION: Obstructive lung disease. No acute findings Assessment & Plan - Diagnosis (1) Acute on chronic respiratory failure with hypoxia and hypercapnia Is this a current diagnosis for this admission?: Yes Plan: patient currently on bipap in avaps mode- states this does help her breathing (2) Emphysema Qualifiers: Emphysema type: centrilobular Qualified Code(s): J43.2 - Centrilobular emphysema Is this a current diagnosis for this admission?: Yes Plan: Long acting muscarinic agent plus long acting beta agonist plus rescue albuterol (3) Pulmonary cachexia due to chronic obstructive pulmonary disease Is this a current diagnosis for this admission?: Yes Plan: Enteral feeding plus beneprotein 3 times a day - Time Total Critical Time (Minutes): 45 Inpatient Scribe Statement - . Entered by Clotilde Adames, acting as scribe for .
--- NOTE | 2019-03-08 07:45 | PDOC PROGRESS REPORT ---
Subjective Progress Note for:: 03/06/19 Subjective:: Patient resting on bipap in AVAPS mode, discussed [facility] as an option for short term acute care Reason For Visit: COPD EXACERBATION,ACUTE BRONCHITIS Physical Exam Vital Signs: Temp Pulse Resp BP Pulse Ox 98.8 F 98 24 H 158/97 H 96 03/07/19 11:05 03/07/19 11:05 03/07/19 11:05 03/07/19 11:05 03/07/19 11:05 Intake & Output 03/07/19 03/08/19 03/09/19 06:59 06:59 06:59 Intake Total 3050 50 Output Total 1520 35 Balance 1530 15 Weight 51.1 kg General appearance: PRESENT: no acute distress, well-developed, well-nourished Head exam: PRESENT: atraumatic, normocephalic Eye exam: PRESENT: conjunctiva pink, EOMI, PERRLA. ABSENT: scleral icterus Ear exam: PRESENT: normal external ear exam Mouth exam: PRESENT: moist, tongue midline Neck exam: ABSENT: carotid bruit, JVD, lymphadenopathy, thyromegaly Respiratory exam: PRESENT: decreased breath sounds, prolonged expiratory phas, rhonchi, tachypnea, wheezes Cardiovascular exam: PRESENT: RRR. ABSENT: diastolic murmur, rubs, systolic murmur Pulses: PRESENT: normal dorsalis pedis pul Vascular exam: PRESENT: normal capillary refill GI/Abdominal exam: PRESENT: normal bowel sounds, soft. ABSENT: distended, guarding, mass, organolmegaly, rebound, tenderness Rectal exam: PRESENT: deferred Extremities exam: PRESENT: full ROM. ABSENT: calf tenderness, clubbing, pedal edema Neurological exam: PRESENT: alert, awake, oriented to person, oriented to place, oriented to time, oriented to situation, CN II-XII grossly intact. ABSENT: motor sensory deficit Psychiatric exam: PRESENT: appropriate affect, normal mood. ABSENT: homicidal ideation, suicidal ideation Skin exam: PRESENT: dry, intact, warm. ABSENT: cyanosis, rash Results Laboratory Results: 03/07/19 06:00 03/07/19 04:05 02/28/19 02/28/19 00:00 00:00 Troponin I < 0.012 NT-Pro-B Natriuret Pep 54 Impressions: Chest X-Ray 03/06/19 06:00 IMPRESSION: Obstructive lung disease. No acute findings Assessment & Plan - Diagnosis (1) Acute on chronic respiratory failure with hypoxia and hypercapnia Is this a current diagnosis for this admission?: Yes Plan: Patient remains AVAPS dependent at this time. (2) Emphysema Qualifiers: Emphysema type: centrilobular Qualified Code(s): J43.2 - Centrilobular emphysema Is this a current diagnosis for this admission?: Yes Plan: Long acting muscarinic agent plus long acting beta agonist plus rescue albuterol (3) Pulmonary cachexia due to chronic obstructive pulmonary disease Is this a current diagnosis for this admission?: Yes Plan: Enteral feeding plus beneprotein 3 times a day - Time Total Critical Time (Minutes): 50 Inpatient Scribe Statement - . Entered by Clotilde Adames, acting as scribe for .
--- NOTE | 2019-03-08 07:48 | PDOC PROGRESS REPORT ---
Subjective Progress Note for:: 03/07/19 Subjective:: Patient to be transferred to [facility], assisted with bipap settings for transport Reason For Visit: COPD EXACERBATION,ACUTE BRONCHITIS Physical Exam Vital Signs: Temp Pulse Resp BP Pulse Ox 98.8 F 98 24 H 158/97 H 96 03/07/19 11:05 03/07/19 11:05 03/07/19 11:05 03/07/19 11:05 03/07/19 11:05 Intake & Output 03/07/19 03/08/19 03/09/19 06:59 06:59 06:59 Intake Total 3050 50 Output Total 1520 35 Balance 1530 15 Weight 51.1 kg General appearance: PRESENT: no acute distress, well-developed, well-nourished Head exam: PRESENT: atraumatic, normocephalic Eye exam: PRESENT: conjunctiva pink, EOMI, PERRLA. ABSENT: scleral icterus Ear exam: PRESENT: normal external ear exam Mouth exam: PRESENT: moist, tongue midline Neck exam: ABSENT: carotid bruit, JVD, lymphadenopathy, thyromegaly Respiratory exam: PRESENT: prolonged expiratory phas, rhonchi, tachypnea, wheezes. ABSENT: rales Cardiovascular exam: PRESENT: RRR. ABSENT: diastolic murmur, rubs, systolic murmur Pulses: PRESENT: normal dorsalis pedis pul Vascular exam: PRESENT: normal capillary refill GI/Abdominal exam: PRESENT: normal bowel sounds, soft. ABSENT: distended, guarding, mass, organolmegaly, rebound, tenderness Rectal exam: PRESENT: deferred Extremities exam: PRESENT: full ROM. ABSENT: calf tenderness, clubbing, pedal edema Neurological exam: PRESENT: alert, awake, oriented to person, oriented to place, oriented to time, oriented to situation, CN II-XII grossly intact. ABSENT: motor sensory deficit Psychiatric exam: PRESENT: appropriate affect, normal mood. ABSENT: homicidal ideation, suicidal ideation Skin exam: PRESENT: dry, intact, warm. ABSENT: cyanosis, rash Results Laboratory Results: 03/07/19 06:00 03/07/19 04:05 02/28/19 02/28/19 00:00 00:00 Troponin I < 0.012 NT-Pro-B Natriuret Pep 54 Impressions: Chest X-Ray 05/28/19 06:00 IMPRESSION: Obstructive lung disease. No acute findings Assessment & Plan - Diagnosis (1) Acute on chronic respiratory failure with hypoxia and hypercapnia Is this a current diagnosis for this admission?: Yes Plan: Patient is AVAPS dependent, will adjust BIPAP ST settings for transfer (2) Emphysema Qualifiers: Emphysema type: centrilobular Qualified Code(s): J43.2 - Centrilobular emphysema Is this a current diagnosis for this admission?: Yes Plan: Long acting muscarinic agent plus long acting beta agonist plus rescue albuterol (3) Pulmonary cachexia due to chronic obstructive pulmonary disease Is this a current diagnosis for this admission?: Yes Plan: Enteral feeding plus beneprotein 3 times a day - Time Total Critical Time (Minutes): 45 Inpatient Scribe Statement - . Entered by Clotilde Adames, acting as scribe for .
== END 2019-03-07 11:05 | DRG 208 ==
LOC: ER 23:47 → EH 02-28 02:24 → 3W 02-28 04:10 → ICU 02-28 12:17
PROVIDERS: ADMIT Internal Medicine; ATTEND Internal Medicine
PROC: 5A1945Z Respiratory Ventilation, 24-96 Consecutive Hours (ICD-10-PCS; principal; 2019-02-28)
PROC: 0BH17EZ Insertion of Endotracheal Airway into Trachea, Via Natural or Artificial Opening (ICD-10-PCS; 2019-02-28)
DX: J96.22 Acute and chronic respiratory failure with hypercapnia (principal); E46 Unspecified protein-calorie malnutrition; R64 Cachexia; Z68.1 Body mass index [BMI] 19.9 or less, adult; J43.2 Centrilobular emphysema; J96.21 Acute and chronic respiratory failure with hypoxia; E78.00 Pure hypercholesterolemia, unspecified; J30.9 Allergic rhinitis, unspecified; I10 Essential (primary) hypertension; K21.9 Gastro-esophageal reflux disease without esophagitis; Z87.891 Personal history of nicotine dependence; Z79.51 Long term (current) use of inhaled steroids; Z79.52 Long term (current) use of systemic steroids; Z79.899 Other long term (current) drug therapy; Z99.81 Dependence on supplemental oxygen
CPT/HCPCS: 31500; 36415; 36600; 71045; 80048; 80053; 82803; 83735; 83880; 84100; 84134; 84484; 85025; 85027; 85610; 85730; 87040; 87070; 87077; 87186; 87205; 93005; 93010; 94002; 94003; 94640; 94660; 96361; 96374; 99291; J0360; J0696; J1100; J1644; J1956; J2060; J2704; J2920; J3490; J7030; J7040; J7060; J7620; S0164